=== PATIENT | male | born 1960 | race Two or more races ===

== ENCOUNTER → 2020-08-07 09:17 | Outpatient (BNVA) | payer MEDICAID, SELFPAY | PROVIDERS: PCP Nurse Practitioner Family; Visit Provider Nurse Practitioner Family | DX: I82.502 Chronic embolism and thrombosis of unspecified deep veins of left lower extremity (principal); Z51.81 Encounter for therapeutic drug level monitoring; Z79.01 Long term (current) use of anticoagulants | CPT/HCPCS: 99211 ==

== ENCOUNTER → 2020-08-14 11:11 | Outpatient (BNVA) | payer MEDICAID, SELFPAY | PROVIDERS: PCP Nurse Practitioner Family; Visit Provider Internal Medicine | DX: I82.502 Chronic embolism and thrombosis of unspecified deep veins of left lower extremity (principal); Z51.81 Encounter for therapeutic drug level monitoring; Z79.01 Long term (current) use of anticoagulants | CPT/HCPCS: 85610 ==

== ENCOUNTER → 2020-08-21 10:34 | Outpatient (BNVA) | payer MEDICAID, SELFPAY | PROVIDERS: PCP Nurse Practitioner Family; Visit Provider Internal Medicine | DX: I82.502 Chronic embolism and thrombosis of unspecified deep veins of left lower extremity (principal); Z51.81 Encounter for therapeutic drug level monitoring; Z79.01 Long term (current) use of anticoagulants | CPT/HCPCS: 85610 ==

== ENCOUNTER → 2020-08-27 13:05 | Outpatient (BNVA) | payer MEDICAID, SELFPAY | PROVIDERS: PCP Nurse Practitioner Family; Visit Provider Internal Medicine | DX: I82.502 Chronic embolism and thrombosis of unspecified deep veins of left lower extremity (principal); Z51.81 Encounter for therapeutic drug level monitoring; Z79.01 Long term (current) use of anticoagulants | CPT/HCPCS: 85610; 99211 ==

== ENCOUNTER → 2020-09-03 11:04 | Outpatient (BNVA) | payer MEDICAID, SELFPAY | PROVIDERS: PCP Nurse Practitioner Family; Visit Provider Internal Medicine | DX: I82.502 Chronic embolism and thrombosis of unspecified deep veins of left lower extremity (principal); Z51.81 Encounter for therapeutic drug level monitoring; Z79.01 Long term (current) use of anticoagulants | CPT/HCPCS: 85610; 99211 ==

== ENCOUNTER → 2020-09-10 11:12 | Outpatient (BNVA) | payer MEDICAID, SELFPAY | PROVIDERS: PCP Nurse Practitioner Family; Visit Provider Internal Medicine | DX: I82.502 Chronic embolism and thrombosis of unspecified deep veins of left lower extremity (principal); Z51.81 Encounter for therapeutic drug level monitoring; Z79.01 Long term (current) use of anticoagulants | CPT/HCPCS: 85610; 99211 ==

== ENCOUNTER → 2020-09-17 11:42 | Outpatient (BNVA) | payer MEDICAID, SELFPAY | PROVIDERS: PCP Nurse Practitioner Family; Visit Provider Internal Medicine | DX: I82.502 Chronic embolism and thrombosis of unspecified deep veins of left lower extremity (principal); Z51.81 Encounter for therapeutic drug level monitoring; Z79.01 Long term (current) use of anticoagulants | CPT/HCPCS: 85610; 99211 ==

== ENCOUNTER → 2020-09-24 11:42 | Outpatient (BNVA) | payer MEDICAID, SELFPAY | PROVIDERS: PCP Nurse Practitioner Family; Visit Provider Internal Medicine | DX: I82.502 Chronic embolism and thrombosis of unspecified deep veins of left lower extremity (principal); Z51.81 Encounter for therapeutic drug level monitoring; Z79.01 Long term (current) use of anticoagulants | CPT/HCPCS: 85610; 99211 ==

== ENCOUNTER → 2020-09-30 11:59 | Outpatient (BNVA) | payer MEDICAID, SELFPAY | PROVIDERS: PCP Nurse Practitioner Family; Visit Provider Internal Medicine | DX: I82.502 Chronic embolism and thrombosis of unspecified deep veins of left lower extremity (principal); Z51.81 Encounter for therapeutic drug level monitoring; Z79.01 Long term (current) use of anticoagulants | CPT/HCPCS: 85610; 99211 ==

== ENCOUNTER → 2020-10-07 11:11 | Outpatient (BNVA) | payer MEDICAID, SELFPAY | PROVIDERS: PCP Nurse Practitioner Family; Visit Provider Internal Medicine | DX: I82.502 Chronic embolism and thrombosis of unspecified deep veins of left lower extremity (principal); Z51.81 Encounter for therapeutic drug level monitoring; Z79.01 Long term (current) use of anticoagulants | CPT/HCPCS: 85610; 99211 ==

== ENCOUNTER → 2020-10-14 11:23 | Outpatient (BNVA) | payer MEDICAID, SELFPAY | PROVIDERS: PCP Nurse Practitioner Family; Visit Provider Internal Medicine | DX: I82.502 Chronic embolism and thrombosis of unspecified deep veins of left lower extremity (principal); Z79.01 Long term (current) use of anticoagulants; Z51.81 Encounter for therapeutic drug level monitoring | CPT/HCPCS: 85610 ==

== ENCOUNTER → 2020-10-21 13:29 | Outpatient (BNVA) | payer MEDICAID, SELFPAY | PROVIDERS: PCP Nurse Practitioner Family; Visit Provider Internal Medicine | DX: I82.502 Chronic embolism and thrombosis of unspecified deep veins of left lower extremity (principal); Z51.81 Encounter for therapeutic drug level monitoring; Z79.01 Long term (current) use of anticoagulants | CPT/HCPCS: 85610; 99211 ==

== ENCOUNTER → 2020-10-28 13:01 | Outpatient (BNVA) | payer MEDICAID, SELFPAY | PROVIDERS: PCP Nurse Practitioner Family; Visit Provider Internal Medicine | DX: I82.502 Chronic embolism and thrombosis of unspecified deep veins of left lower extremity (principal); Z51.81 Encounter for therapeutic drug level monitoring; Z79.01 Long term (current) use of anticoagulants | CPT/HCPCS: 85610; 99211 ==

== ENCOUNTER → 2020-11-04 12:53 | Outpatient (BNVA) | payer MEDICAID, SELFPAY | PROVIDERS: PCP Nurse Practitioner Family; Visit Provider Internal Medicine | DX: I82.502 Chronic embolism and thrombosis of unspecified deep veins of left lower extremity (principal); Z51.81 Encounter for therapeutic drug level monitoring; Z79.01 Long term (current) use of anticoagulants | CPT/HCPCS: 85610; 99211 ==

== ENCOUNTER → 2020-11-11 13:16 | Outpatient (BNVA) | payer MEDICAID, SELFPAY | PROVIDERS: PCP Nurse Practitioner Family; Visit Provider Internal Medicine | DX: I82.502 Chronic embolism and thrombosis of unspecified deep veins of left lower extremity (principal); Z51.81 Encounter for therapeutic drug level monitoring; Z79.01 Long term (current) use of anticoagulants | CPT/HCPCS: 85610; 99211 ==

== ENCOUNTER → 2020-11-18 12:40 | Outpatient (BNVA) | payer MEDICAID, SELFPAY | PROVIDERS: PCP Nurse Practitioner Family; Visit Provider Internal Medicine | DX: I82.502 Chronic embolism and thrombosis of unspecified deep veins of left lower extremity (principal); Z51.81 Encounter for therapeutic drug level monitoring; Z79.01 Long term (current) use of anticoagulants | CPT/HCPCS: 85610; 99211 ==

== ENCOUNTER → 2020-11-25 08:56 | Outpatient (BNVA) | payer MEDICAID, SELFPAY | PROVIDERS: PCP Nurse Practitioner Family; Visit Provider Internal Medicine | DX: I82.502 Chronic embolism and thrombosis of unspecified deep veins of left lower extremity (principal); Z51.81 Encounter for therapeutic drug level monitoring; Z79.01 Long term (current) use of anticoagulants | CPT/HCPCS: 85610; 99211 ==

== ENCOUNTER → 2020-12-02 09:43 | Outpatient (BNVA) | payer MEDICAID, SELFPAY | PROVIDERS: PCP Nurse Practitioner Family; Visit Provider Internal Medicine | DX: I82.501 Chronic embolism and thrombosis of unspecified deep veins of right lower extremity (principal); Z51.81 Encounter for therapeutic drug level monitoring; Z79.01 Long term (current) use of anticoagulants | CPT/HCPCS: 85610; 99211 ==

== ENCOUNTER → 2020-12-09 12:59 | Outpatient (BNVA) | payer MEDICAID, SELFPAY | PROVIDERS: PCP Nurse Practitioner Family; Visit Provider Internal Medicine | DX: I82.502 Chronic embolism and thrombosis of unspecified deep veins of left lower extremity (principal); Z51.81 Encounter for therapeutic drug level monitoring; Z79.01 Long term (current) use of anticoagulants | CPT/HCPCS: 85610; 99211 ==

== ENCOUNTER → 2020-12-17 13:47 | Outpatient (BNVA) | payer MEDICAID, SELFPAY | PROVIDERS: PCP Nurse Practitioner Family; Visit Provider Internal Medicine | DX: I82.502 Chronic embolism and thrombosis of unspecified deep veins of left lower extremity (principal); Z51.81 Encounter for therapeutic drug level monitoring; Z79.01 Long term (current) use of anticoagulants | CPT/HCPCS: 85610; 99211 ==

== ENCOUNTER → 2020-12-23 14:03 | Outpatient (BNVA) | payer MEDICAID, SELFPAY | PROVIDERS: PCP Nurse Practitioner Family; Visit Provider Internal Medicine | DX: I82.502 Chronic embolism and thrombosis of unspecified deep veins of left lower extremity (principal); Z51.81 Encounter for therapeutic drug level monitoring; Z79.01 Long term (current) use of anticoagulants | CPT/HCPCS: 85610; 99211 ==

== ENCOUNTER → 2020-12-25 10:44 | Outpatient (BNVA) | payer MEDICAID, SELFPAY | PROVIDERS: PCP Nurse Practitioner Family; Visit Provider Internal Medicine | DX: I82.502 Chronic embolism and thrombosis of unspecified deep veins of left lower extremity (principal); Z51.81 Encounter for therapeutic drug level monitoring; Z79.01 Long term (current) use of anticoagulants | CPT/HCPCS: 85610; 99211 ==

== ENCOUNTER → 2020-12-31 10:46 | Outpatient (BNVA) | payer MEDICAID, SELFPAY | PROVIDERS: PCP Nurse Practitioner Family; Visit Provider Internal Medicine | DX: I82.502 Chronic embolism and thrombosis of unspecified deep veins of left lower extremity (principal); Z51.81 Encounter for therapeutic drug level monitoring; Z79.01 Long term (current) use of anticoagulants | CPT/HCPCS: 85610; 99211 ==

== ENCOUNTER → 2021-01-07 11:22 | Outpatient (BNVA) | payer MEDICAID, SELFPAY | PROVIDERS: PCP Nurse Practitioner Family; Visit Provider Internal Medicine | DX: I82.502 Chronic embolism and thrombosis of unspecified deep veins of left lower extremity (principal); Z51.81 Encounter for therapeutic drug level monitoring; Z79.01 Long term (current) use of anticoagulants | CPT/HCPCS: 85610; 99211 ==

== ENCOUNTER → 2021-02-04 10:31 | Outpatient (BNVA) | payer MEDICAID, SELFPAY | PROVIDERS: PCP Nurse Practitioner Family; Visit Provider Internal Medicine | DX: I82.502 Chronic embolism and thrombosis of unspecified deep veins of left lower extremity (principal); Z51.81 Encounter for therapeutic drug level monitoring; Z79.01 Long term (current) use of anticoagulants | CPT/HCPCS: 85610; 99211 ==

== ENCOUNTER 2021-02-04 14:58 | Emergency (ER) | payer MEDICAID, SELFPAY ==
--- NOTE | ~2021-02-04 | CT_ITS ---
EXAMINATION: CT HEAD WITHOUT CONTRAST CT CERVICAL SPINE WITHOUT CONTRAST CLINICAL INFORMATION: EtOH COMPARISON: CT head 03/06/2018 TECHNIQUE: Imaging was performed from the skull base to vertex without intravenous administration of contrast. In addition, helical noncontrast CT imaging was acquired through the cervical spine and source images were reviewed along with axial reconstructions and sagittal and coronal MPRs. [This CT examination was performed using dose optimization techniques as appropriate, variously including the following: *Automated exposure control *Adjustment of mA and/or kV according to patient size (this includes techniques or standardized protocols for targeted exams where dose is matched to indication/reason for exam; i.e. extremities or head) *Use of iterative reconstruction technique] DLP: 1460 mGy-cm FINDINGS: HEAD: No intracranial mass, hemorrhage, or midline shift is visualized. There is atrophy with prominence of the ventricles and the sulci and hypodensity of the periventricular white matter due to chronic small vessel ischemic disease. There are vascular calcifications of the internal carotid arteries bilaterally. No extra-axial collections are identified. The paranasal sinuses and mastoid air cells are well aerated. CERVICAL SPINE: There is no evidence of acute cervical spine fracture. Vertebral bodies remain normal in height. Cervical vertebrae have normal alignment. There is multilevel degenerative spondylosis of the cervical spine with disc height narrowing and endplate spurs and facet joint arthrosis No pre- or paravertebral soft tissue abnormality is identified. Limited assessment of the lung apices is unremarkable. CT/CT cervical spine wo con IMPRESSION: 1. No acute intracranial pathology. 2. No CT evidence of acute cervical spine fracture or traumatic subluxation
[2021-02-04 15:07] VITALS: BP 132/74; PULSE 79; RESP 16; TEMP 36.6; O2SAT 96; BMI 31.3
--- NOTE | 2021-02-04 15:15 | PC.NURSE ---
PT S/F IN BED, RR EVEN UNLABORED, SKIN WPD, DROWSY. PER EMS PT FOUND BY BYSTANDER SITTING ON CURB APPARENTLY INTOXICATED. UPON ARRIVAL TO ED PT DROWSY BUT EASILY AROUSABLE, ANSWERING QUESTIONS APPROPRIATELY BUT NECESSITATING CONSTANT STIMULI TO STAY AWAKE. PT REPORTS DRINKING ETOH TODAY, STS A LOT A LIQUOR. PT DENIES USE OF ANY OTHER SUBSTANCE/MEDICATIONS. PT DENIES TRAUMA, NO OBVIOUS INJURIES OR DEFORMITIES NOTED. VSS, NAD. PT AWAITING PRIMARY PROVIDER EVAL.
[2021-02-04 15:17] VITALS: PULSE 74
[2021-02-04 15:19] LABS: Glucose, Whole Blood 118 mg/dL (60-115)
[2021-02-04 15:44] LABS: MANUAL DIFF FLAG NO
[2021-02-04 15:47] LABS: Basophils Percent Auto 0.4 % (0-2); Eosinophils Absolute Auto 0.1 X10*3/uL (0.0-0.4); Eosinophils Percent Auto 2.1 % (0-4); Hematocrit 44.4 % (42-52); Imm Gran Abs Auto 0.01 X10*3/uL (0.00-0.03); Imm Gran Pct Auto 0.2 % (0.0-0.4); Lymphocytes Absolute Auto 1.9 X10*3/uL (1.2-4.9); Lymphocytes Percent Auto 33.7 % (20-40); Mean Corpuscular HGB Conc 31.5 g/dl (31.0-36.0); Mean Corpuscular Hemoglobin 26.7 pg (27.0-33.0); Mean Corpuscular Volume 84.7 fL (80-98); Mean Platelet Volume 10.6 fL (9.4-12.4); Monocytes Absolute Auto 0.3 X10*3/uL (0.1-1.2); Neutrophils Absolute Auto 3.3 X10*3/uL (2.0-8.3); Neutrophils Percent Auto 57.6 % (45-73); Platelet Count 281 X10*3/uL (160-400); Red Blood Count 5.24 X10*6/uL (4.60-5.80); Red Cell Distribution Width 15.4 % (11.0-16.0); White Blood Count 5.7 X10*3/uL (4.8-10.8)
--- NOTE | 2021-02-04 15:59 | ED.ALCOHOL ---
HPI - Alcohol General Chief Complaint: ETOH/Substance Use Stated Complaint: ETOH INTOXICATION Time Seen by Provider: 02/04/21 15:59 Source: EMS Limitations: other (Alcohol intoxication) History of Present Illness HPI narrative: 60-year-old male presenting via EMS was found sitting on a curve intoxicated bystander called. Per EMS he offered no complaints admits to drinking ?a lot? denies any fall or injury. It is reported that he is on Coumadin for previous history of DVT/PE. Otherwise no reported complaint of pain or fall. MD complaint: alcohol intoxication Chronic alcohol use: Yes Associated symptoms: denies other symptoms Treatments prior to arrival: none Related Data Previous Rx's Medication Instructions Recorded warfarin 5 mg tablet 7.5 mg PO DAILY #7 tab 08/21/20 Allergies Allergy/AdvReac Type Severity Reaction Status Date / Time MRI DYE Allergy Unknown UNKNOWN Uncoded 11/04/20 15:11 Review of Systems Review of Systems: Yes Unobtainable due to mental condition (Intoxication) [facility] Past Medical History Medical History Asthma Diabetes Social History Social History Alcohol intake: current Alcohol type: hard liquor Smoking Status: Never smoker Use of substances other than those prescribed or required for medical reasons: No Advance Directives: No Advance Directives Information Provided: Yes Physical Exam Vital Signs: Vital Signs: Last Vital Signs Temp 96.3 F L 02/04/21 19:39 Pulse 82 02/04/21 19:39 Resp 16 02/04/21 19:39 BP 128/65 02/04/21 19:39 Pulse Ox 98 02/04/21 19:39 Body Mass Index 31.3 Reviewed Const: General: cooperative, acute distress and intoxicated appearing Nutritional Appearance: average body habitus Orientation/consciousness: patient oriented x3 HENMT: Head: Yes normal to inspection Ears: hearing grossly normal bilaterally Eyes: General: appearance normal, both eyes and all related structures Visual Kelsey: normal visual kelsey by confrontation Neck: Neck: Yes normal visual inspection, No positive Brudzinski's sign, No positive Kernig's sign and No tender Thyroid: Thyroid normal Chest: Chest palpation & inspection: normal inspection of the chest Resp: Effort & Inspection: normal respiratory effort Auscultation: clear to auscultation bilaterally Cardio: Jugular venous distension: no JVD Rhythm: regular rhythm Heart sounds: S1 normal heart sound present and S2 normal heart sound present GI: Inspection: Yes normal to inspection Percussion: Yes normal to percussion Auscultation: normal bowel sounds : General: Yes no CVA tenderness Back/Spine/Pelvis: Back: no CVA tenderness Skin: General skin exam: no rashes or lesions noted Neuro: General: patient oriented x3 Extrem: General: Yes normal to inspection Course Reevaluation(s) Reevaluation #1: Hypernatremic at 01:48 otherwise alcohol is three hundred ninety-three has been in observing the ED for almost 6 hours he is up and walking around eating drinking clinically sober at this time. Offers no other complaints. He declined to go to detox services at this time he will follow-up a size he is calling his son to come pick him up. MDM - Alcohol Lab Data Result diagrams: 02/04/21 15:32 02/04/21 15:32 Labs: Lab Results 02/04/21 02/04/21 02/04/21 Range/Units 15:14 15:32 15:32 WBC 5.7 (4.8-10.8) X10*3/uL RBC 5.24 (4.60-5.80) X10*6/uL Hgb 14.0 (14.0-18.0) g/dl Hct 44.4 (42-52) % MCV 84.7 (80-98) fL MCH 26.7 L (27.0-33.0) pg MCHC 31.5 (31.0-36.0) g/dl RDW 15.4 (11.0-16.0) % Plt Count 281 (160-400) X10*3/uL MPV 10.6 (9.4-12.4) fL Immature Gran % (Auto) 0.2 (0.0-0.4) % Neut % (Auto) 57.6 (45-73) % Lymph % (Auto) 33.7 (20-40) % [place] % (Auto) 6.0 (2-11) % Eos % (Auto) 2.1 (0-4) % Baso % (Auto) 0.4 (0-2) % Lymph # (Auto) 1.9 (1.2-4.9) X10*3/uL [place] # (Auto) 0.3 (0.1-1.2) X10*3/uL Eos # (Auto) 0.1 (0.0-0.4) X10*3/uL Baso # (Auto) 0.0 (0.0-0.2) X10*3/uL Abs Immat Gran (auto) 0.01 (0.00-0.03) X10*3/uL Absolute Neuts (auto) 3.3 (2.0-8.3) X10*3/uL Absolute Nucleated RBC 0.000 (0.0-0.012) X10*3/uL Nucleated RBC % (auto) 0.0 (0.0-0.2) /100WBC PT (10.8-13.0) SEC INR (0.9-1.1) APTT (24.1-38.0) SEC Hold Blue Top Sodium 148 H (135-145) mmol/L Potassium 3.8 (3.3-5.1) mmol/L Chloride 111 H (96-108) mmol/L Carbon Dioxide 27 (22-29) mmol/L Anion Gap 14 (12-20) BUN 18 H (9-16) mg/dL Creatinine 0.77 (0.5-1.4) mg/dL Estim Creat Clear Calc 109.5 Estimated GFR > 60 POC Glucose 118 H (60-115) mg/dL Random Glucose 121 H (60-115) mg/dL Calcium 10.1 (8.4-10.2) mg/dL Ethyl Alcohol mg/dL 02/04/21 02/04/21 Range/Units 15:32 15:32 WBC (4.8-10.8) X10*3/uL RBC (4.60-5.80) X10*6/uL Hgb (14.0-18.0) g/dl Hct (42-52) % MCV (80-98) fL MCH (27.0-33.0) pg MCHC (31.0-36.0) g/dl RDW (11.0-16.0) % Plt Count (160-400) X10*3/uL MPV (9.4-12.4) fL Immature Gran % (Auto) (0.0-0.4) % Neut % (Auto) (45-73) % Lymph % (Auto) (20-40) % [place] % (Auto) (2-11) % Eos % (Auto) (0-4) % Baso % (Auto) (0-2) % Lymph # (Auto) (1.2-4.9) X10*3/uL [place] # (Auto) (0.1-1.2) X10*3/uL Eos # (Auto) (0.0-0.4) X10*3/uL Baso # (Auto) (0.0-0.2) X10*3/uL Abs Immat Gran (auto) (0.00-0.03) X10*3/uL Absolute Neuts (auto) (2.0-8.3) X10*3/uL Absolute Nucleated RBC (0.0-0.012) X10*3/uL Nucleated RBC % (auto) (0.0-0.2) /100WBC PT 23.4 H (10.8-13.0) SEC INR 2.0 H (0.9-1.1) APTT 42.6 H (24.1-38.0) SEC Hold Blue Top SEE NOTE Sodium (135-145) mmol/L Potassium (3.3-5.1) mmol/L Chloride (96-108) mmol/L Carbon Dioxide (22-29) mmol/L Anion Gap (12-20) BUN (9-16) mg/dL Creatinine (0.5-1.4) mg/dL Estim Creat Clear Calc Estimated GFR POC Glucose (60-115) mg/dL Random Glucose (60-115) mg/dL Calcium (8.4-10.2) mg/dL Ethyl Alcohol 393 H* mg/dL Discharge Plan Discharge Clinical Impression: Alcoholic intoxication Patient Disposition: Home, Self-Care Instructions: Alcohol Intoxication (ED) Additional Instructions: Please stop drinking alcohol Please seek detox Please follow-up with your primary care doctor Return if any concerns or worsening symptoms As I have discussed with you your risk for bleeding is very high given that you take Coumadin which is a blood thinner and if your intoxicating you fall you can have increase risk for bleeding in her brain and your chest/abdominal cavity Return if any concerns or worsening symptoms Thank you Prescriptions: No Action warfarin 5 mg tablet 7.5 mg PO DAILY Qty: 7 RF: 0 Referrals: Physician,Unknown [Primary Care Provider] - 2 days
[2021-02-04 16:21] LABS: Ethanol 393 mg/dL
[2021-02-04 16:22] LABS: Anion Gap 14 (12-20); Calcium 10.1 mg/dL (8.4-10.2); Carbon Dioxide 27 mmol/L (22-29); Chloride 111 mmol/L (96-108); Potassium 3.8 mmol/L (3.3-5.1); Sodium 148 mmol/L (135-145)
[2021-02-04 16:32] LABS: Blood Urea Nitrogen 18 mg/dL (9-16); Creatinine Clr Calc Pharmacy 109.5; Estimated Glomerular Filt Rate > 60; Glucose Random 121 mg/dL (60-115); Prothrombin Time 23.4 SEC (10.8-13.0)
[2021-02-04 16:33] VITALS: BP 143/72; PULSE 64; RESP 16; TEMP 36.9; O2SAT 99
[2021-02-04 16:37] LABS: Partial Thromboplastin Time 42.6 SEC (24.1-38.0)
[2021-02-04 19:39] VITALS: BP 128/65; PULSE 82; RESP 16; TEMP 35.7; O2SAT 98
--- NOTE | 2021-02-04 21:19 | MHC.RECOVSUP ---
? Reason for consult Support o Current location: ED18H o Identified substance use concern: alcohol - Support ? Intervention: o Community resources provided o Harm reduction discussion ? Plan: o Patient to follow up with [facility] after discharge ? Additional information: Patient is in a sober house and had 6 months in recovery and had a relapse from alcohol.. Patient left the ED to try to get back to the sober house before his curfew. patient was given resources to [facility] so that if needed he can go in the morning to get help and support he may need.
== END 2021-02-04 21:24 | disposition home or self-care (01) ==
PROVIDERS: Nurse Practitioner Primary Care; Emergency Provider Emergency Medicine
DX: F10.120 Alcohol abuse with intoxication, uncomplicated (principal); Y90.8 Blood alcohol level of 240 mg/100 ml or more; E11.9 Type 2 diabetes mellitus without complications; Z86.718 Personal history of other venous thrombosis and embolism; Z79.01 Long term (current) use of anticoagulants
CPT/HCPCS: 36415; 70450; 72125; 80048; 80320; 82947; 85025; 85610; 85730; 99285

== ENCOUNTER → 2021-02-18 10:22 | Outpatient (BNVA) | payer MEDICAID, SELFPAY | PROVIDERS: PCP Internal Medicine; Visit Provider Internal Medicine | DX: I82.502 Chronic embolism and thrombosis of unspecified deep veins of left lower extremity (principal); Z79.01 Long term (current) use of anticoagulants; Z51.81 Encounter for therapeutic drug level monitoring | CPT/HCPCS: 85610; 99211 ==

== ENCOUNTER → 2021-03-04 09:42 | Outpatient (BNVA) | payer MEDICAID, SELFPAY | PROVIDERS: PCP Internal Medicine; Visit Provider Internal Medicine | DX: I82.502 Chronic embolism and thrombosis of unspecified deep veins of left lower extremity (principal); Z51.81 Encounter for therapeutic drug level monitoring; Z79.01 Long term (current) use of anticoagulants | CPT/HCPCS: 85610; 99211 ==

== ENCOUNTER → 2021-03-08 13:42 | Outpatient (BNVA) | payer MEDICAID, SELFPAY | PROVIDERS: PCP Internal Medicine; Visit Provider Internal Medicine | DX: I82.402 Acute embolism and thrombosis of unspecified deep veins of left lower extremity (principal); Z51.81 Encounter for therapeutic drug level monitoring; Z79.01 Long term (current) use of anticoagulants | CPT/HCPCS: 85610; 99211 ==

== ENCOUNTER → 2021-03-12 08:43 | Outpatient (BNVA) | payer MEDICAID, SELFPAY | PROVIDERS: PCP Internal Medicine; Visit Provider Internal Medicine | DX: I82.402 Acute embolism and thrombosis of unspecified deep veins of left lower extremity (principal); Z79.01 Long term (current) use of anticoagulants; Z51.81 Encounter for therapeutic drug level monitoring | CPT/HCPCS: 85610; 99211 ==

== ENCOUNTER 2021-03-17 19:07 | Emergency (ER) | payer MEDICAID, SELFPAY ==
--- NOTE | ~2021-03-17 | CT_ITS ---
EXAMINATION: CT HEAD WITHOUT CONTRAST CT CERVICAL SPINE WITHOUT CONTRAST CLINICAL INFORMATION: Fall. COMPARISON: CT head and CT cervical spine 02/04/2021 TECHNIQUE: Imaging was performed from the skull base to vertex without intravenous administration of contrast. In addition, helical noncontrast CT imaging was acquired through the cervical spine and source images were reviewed along with axial reconstructions and sagittal and coronal MPRs. [This CT examination was performed using dose optimization techniques as appropriate, variously including the following: *Automated exposure control *Adjustment of mA and/or kV according to patient size (this includes techniques or standardized protocols for targeted exams where dose is matched to indication/reason for exam; i.e. extremities or head) *Use of iterative reconstruction technique] DLP: 1252 mGy-cm FINDINGS: HEAD: No intracranial mass, hemorrhage, or midline shift is visualized. There is atrophy with prominence of the ventricles and the sulci and hypodensity of the periventricular white matter due to chronic small vessel ischemic disease. There are vascular calcifications of the internal carotid arteries bilaterally. No extra-axial collections are identified. The paranasal sinuses and mastoid air cells are well aerated. CERVICAL SPINE: There is no evidence of acute cervical spine fracture. Vertebral bodies remain normal in height. Cervical vertebrae have normal alignment. There is multilevel degenerative spondylosis of the cervical spine with disc height narrowing and endplate spurs and facet joint arthrosis No pre- or paravertebral soft tissue abnormality is identified. Limited assessment of the lung apices is unremarkable. CT/CT cervical spine wo con IMPRESSION: 1. No acute intracranial pathology. 2. No CT evidence of acute cervical spine fracture or traumatic subluxation
[2021-03-17 19:16] VITALS: BP 147/62; BP 190/100; PULSE 88; PULSE 96; RESP 16; TEMP 36.7; O2SAT 95; O2SAT 99; BMI 32.8
--- NOTE | 2021-03-17 19:44 | ED.GENADULT ---
HPI - General Adult General Chief complaint: Fall Stated complaint: ETOH Time Seen by Provider: 03/17/21 19:36 Source: patient, EMS, RN notes reviewed and old records reviewed Mode of arrival: EMS Limitations: no limitations History of Present Illness HPI narrative: 60 year-old male here today brought by EMS services. Patient was found on the side of the road by a bystander. [employer] was called for a full. Patient was drinking about 1 pt of vodka today. Does not recall falling, patient is on Coumadin for history of blood clots. Patient is very difficult to arouse to get any information from him. Related Data Home Medications Medication Instructions Recorded Confirmed hydroxyzine HCl PO 02/18/21 03/12/21 omega 3 fish oil PO 03/12/21 03/12/21 Previous Rx's Medication Instructions Recorded warfarin 5 mg tablet 7.5 mg PO DAILY #7 tab 08/21/20 Allergies Allergy/AdvReac Type Severity Reaction Status Date / Time MRI DYE Allergy Unknown UNKNOWN Uncoded 11/04/20 15:11 Review of Systems Review of Systems: Constitutional : No Weight loss, No Fever, No Chills, No Night Sweats, No Fatigue, No Malaise ENT/Mouth : No Hearing loss, No Ear Pain, No Nasal Congestion, No Sinus Pain, No Hoarseness, No sore throat, No Rhinorrhea, No Swallowing Difficulty Eyes: No Eye Pain, No Swelling, No Redness, No Foreign Body, No Discharge, No Vision Changes Cardiovascular : No Chest Pain, No SOB, No Dyspnea on Exertion, No Orthopnea, No Edema, No Palpitations Respiratory : No Cough, No Sputum, No Wheezing, No Smoke Exposure, No Dyspnea Gastrointestinal : No Nausea, No Vomiting, No Diarrhea, No Constipation, No abdominal Pain, No Hematochezia, No Melena Genitourinary : no irregular bleeding, No Dysuria, No Urinary Frequency, No Hematuria, No Urinary Incontinence, No Urgency, No Flank Pain, No Urinary Flow Changes, No Hesitancy Musculoskeletal : No joint pain, No Myalgias, No Joint Swelling Skin : No Skin Lesions, No rash Neuro : No Weakness, No Numbness, No Paresthesias, No Loss of Consciousness, No Dizziness, No Headache Psych : No Anxiety/Panic, No Depression, No SI/HI/AH/VH, No Social Issues, Heme/Lymph: No Bruising, No Bleeding,No Lymphadenopathy Endocrine : No Polyuria, No Polydipsia, No Temperature Intolerance Yes all other systems are reviewed and are negative PMFSH Past Medical History Medical History (Updated 03/17/21 @ 19:19 by Myrna Gee) Asthma Diabetes ETOH abuse HTN (hypertension) Thrombosis Social History Social History Alcohol intake: current Alcohol type: hard liquor Smoking Status: Never smoker Advance Directives: No Advance Directives Information Provided: No Physical Exam Vital Signs: Vital Signs: Last Vital Signs Temp 98.1 F 03/17/21 19:16 Pulse 94 03/17/21 20:15 Resp 15 03/17/21 20:15 BP 148/94 H 03/17/21 20:15 Pulse Ox 96 03/17/21 20:15 Body Mass Index 32.8 Const: General: healthy appearing, no acute distress and well developed Nutritional Appearance: well nourished Orientation/consciousness: patient oriented x3 Neck: Neck: Yes normal visual inspection, Yes full ROM and Yes trachea midline Thyroid: Thyroid normal Resp: Auscultation: clear to auscultation bilaterally Cardio: Rate: regular rate Rhythm: regular rhythm GI: Inspection: Yes normal to inspection and No distended Palpation (GI): No hepatosplenomegaly present Auscultation: normal bowel sounds Skin: General skin exam: elasticity normal, turgor normal and dry skin Neuro: General: patient oriented x3 Course Course Course Narrative: Patient was brought by EMS services after police was called by a bystander who witnessed patient fall. Patient denies any fall. No injuries noted to had. Patient denies any spinal tenderness however patient is very intoxicated and difficult to arouse. I will order CT of head and cervical spine. Will get basic lab work CBC and CMP. Reevaluation(s) Reevaluation #1: Labs drawn. Awaiting to get CT of the neck and head. Patient little bit more arousable right now. He reports that he lives in [place] and has been here in the last 5 months. He is in sober living in [facility]. Patient reports that he does not have any family around here. Spoke to recovery code Ruben who will go and talk to him about safe return home if all his lab work and CT scans are negative. Patient is agreeable to plan of care and verbalizes understanding. Reevaluation #2: Awaiting CT scan results. Lab work negative for any abnormalities. Patient denies any CP, PND. Report given to Dr. Coppola who will take over his care Medical Decision Making Lab Data Result diagrams: 03/17/21 20:31 03/17/21 20:31 Labs: Lab Results 03/17/21 03/17/21 03/17/21 Range/Units 20:24 20:31 20:31 WBC 7.0 (4.8-10.8) X10*3/uL RBC 5.26 (4.60-5.80) X10*6/uL Hgb 13.7 L (14.0-18.0) g/dl Hct 42.8 (42-52) % MCV 81.4 (80-98) fL MCH 26.0 L (27.0-33.0) pg MCHC 32.0 (31.0-36.0) g/dl RDW 14.7 (11.0-16.0) % Plt Count 247 (160-400) X10*3/uL MPV 9.5 (9.4-12.4) fL Immature Gran % (Auto) 0.3 (0.0-0.4) % Neut % (Auto) 72.8 (45-73) % Lymph % (Auto) 20.3 (20-40) % [place] % (Auto) 5.7 (2-11) % Eos % (Auto) 0.6 (0-4) % Baso % (Auto) 0.3 (0-2) % Lymph # (Auto) 1.4 (1.2-4.9) X10*3/uL [place] # (Auto) 0.4 (0.1-1.2) X10*3/uL Eos # (Auto) 0.0 (0.0-0.4) X10*3/uL Baso # (Auto) 0.0 (0.0-0.2) X10*3/uL Abs Immat Gran (auto) 0.02 (0.00-0.03) X10*3/uL Absolute Neuts (auto) 5.1 (2.0-8.3) X10*3/uL Absolute Nucleated RBC 0.000 (0.0-0.012) X10*3/uL Nucleated RBC % (auto) 0.0 (0.0-0.2) /100WBC Sodium 143 (135-145) mmol/L Potassium 3.8 (3.3-5.1) mmol/L Chloride 104 (96-108) mmol/L Carbon Dioxide 24 (22-29) mmol/L Anion Gap 19 (12-20) BUN 15 (9-16) mg/dL Creatinine 0.91 (0.5-1.4) mg/dL Estim Creat Clear Calc 93.7 Estimated GFR > 60 POC Glucose 125 H (60-115) mg/dL Random Glucose 135 H (60-115) mg/dL Calcium 9.4 D (8.4-10.2) mg/dL Total Bilirubin 0.4 (0.0-1.0) mg/dL AST 34 (5-37) U/L ALT 32 (0-40) U/L Alkaline Phosphatase 56 (39-117) U/L Total Protein 7.2 (6.5-8.0) g/dL Albumin 4.5 (3.5-5.0) g/dL Discharge Plan Discharge Prescriptions: No Action warfarin 5 mg tablet 7.5 mg PO DAILY Qty: 7 RF: 0 omega 3 fish oil 500 mg PO RF: 0 hydroxyzine HCl PO RF: 0
[2021-03-17 20:15] VITALS: BP 148/94; PULSE 94; RESP 15; O2SAT 96
[2021-03-17] MEDS: 0.9 % Sodium Chloride 1,000 ML 999 ML IV (20:32)
[2021-03-17 20:39] LABS: Glucose, Whole Blood 125 mg/dL (60-115)
[2021-03-17 20:39] LABS: MANUAL DIFF FLAG NO
[2021-03-17 20:45] LABS: Basophils Percent Auto 0.3 % (0-2); Eosinophils Percent Auto 0.6 % (0-4); Hematocrit 42.8 % (42-52); Hemoglobin 13.7 g/dl (14.0-18.0); Imm Gran Abs Auto 0.02 X10*3/uL (0.00-0.03); Imm Gran Pct Auto 0.3 % (0.0-0.4); Lymphocytes Absolute Auto 1.4 X10*3/uL (1.2-4.9); Lymphocytes Percent Auto 20.3 % (20-40); Mean Corpuscular Volume 81.4 fL (80-98); Mean Platelet Volume 9.5 fL (9.4-12.4); Monocytes Absolute Auto 0.4 X10*3/uL (0.1-1.2); Monocytes Percent Auto 5.7 % (2-11); Neutrophils Absolute Auto 5.1 X10*3/uL (2.0-8.3); Neutrophils Percent Auto 72.8 % (45-73); Platelet Count 247 X10*3/uL (160-400); Red Blood Count 5.26 X10*6/uL (4.60-5.80); Red Cell Distribution Width 14.7 % (11.0-16.0)
--- NOTE | 2021-03-17 21:05 | MHC.RECOVSUP ---
? Reason for consult Support o Current location: ED10 o Identified substance use concern: Alcohol - Support ? Intervention: o Community resources provided o Harm reduction discussion ? Plan: o Patient to follow up with [facility] after discharge ? Additional information: Patient relapsed and is currently in a sober house ([facility] in [place]). Patient wants to go to a detox.. But Theres no beds available. Patient will be going to [facility] [place] in the morning so that a recovery auditor will be able to assist him..
[2021-03-17 21:07] LABS: Alanine Aminotransferase 32 U/L (0-40); Albumin Level 4.5 g/dL (3.5-5.0); Alkaline Phosphatase 56 U/L (39-117); Anion Gap 19 (12-20); Aspartate Amino Transferase 34 U/L (5-37); Bilirubin Total 0.4 mg/dL (0.0-1.0); Blood Urea Nitrogen 15 mg/dL (9-16); Calcium 9.4 mg/dL (8.4-10.2); Carbon Dioxide 24 mmol/L (22-29); Chloride 104 mmol/L (96-108); Creatinine Clr Calc Pharmacy 93.7; Estimated Glomerular Filt Rate > 60; Glucose Random 135 mg/dL (60-115); Potassium 3.8 mmol/L (3.3-5.1); Sodium 143 mmol/L (135-145); Total Protein 7.2 g/dL (6.5-8.0)
[2021-03-17 22:32] VITALS: BP 133/85; PULSE 97; RESP 22; TEMP 36.8; O2SAT 96
--- NOTE | 2021-03-18 00:57 | PC.NURSE ---
Pt ambulatory with steady gait
[2021-03-18 01:16] LABS: Magnesium 2.2 mg/dL (1.6-2.6)
[2021-03-18 01:23] VITALS: BP 148/86; PULSE 91; RESP 16; O2SAT 96
--- NOTE | 2021-03-18 08:58 | PC.NURSE ---
PT DIDNT WANT TO WAIT TO SEE INSURANCE INSTRUCTOR, LEFT WITHOUT PAPER WORK.
== END 2021-03-18 08:57 | disposition home or self-care (01) ==
PROVIDERS: Internal Medicine; Nurse Practitioner Family; Emergency Provider Emergency Medicine
DX: F10.120 Alcohol abuse with intoxication, uncomplicated (principal); Y90.9 Presence of alcohol in blood, level not specified; Z91.81 History of falling; E11.9 Type 2 diabetes mellitus without complications; I10 Essential (primary) hypertension; Z86.718 Personal history of other venous thrombosis and embolism; Z79.01 Long term (current) use of anticoagulants
CPT/HCPCS: 36415; 70450; 72125; 80053; 82947; 83735; 85025; 96360; 99284

== ENCOUNTER → 2021-03-31 14:06 | Outpatient (BNVA) | payer MEDICAID, SELFPAY | PROVIDERS: PCP Internal Medicine; Visit Provider Internal Medicine | DX: I82.402 Acute embolism and thrombosis of unspecified deep veins of left lower extremity (principal); Z51.81 Encounter for therapeutic drug level monitoring; Z79.01 Long term (current) use of anticoagulants | CPT/HCPCS: 85610; 99211 ==

== ENCOUNTER → 2021-04-21 13:04 | Outpatient (BNVA) | payer MEDICAID, SELFPAY | PROVIDERS: PCP Internal Medicine; Visit Provider Internal Medicine | DX: I82.402 Acute embolism and thrombosis of unspecified deep veins of left lower extremity (principal); Z51.81 Encounter for therapeutic drug level monitoring; Z79.01 Long term (current) use of anticoagulants | CPT/HCPCS: 85610; 99211 ==

== ENCOUNTER → 2021-04-22 13:04 | Outpatient (BNVA) | payer MEDICAID, SELFPAY | PROVIDERS: PCP Internal Medicine; Visit Provider Internal Medicine | DX: I82.402 Acute embolism and thrombosis of unspecified deep veins of left lower extremity (principal); Z51.81 Encounter for therapeutic drug level monitoring; Z79.01 Long term (current) use of anticoagulants | CPT/HCPCS: 85610; 99211 ==

== ENCOUNTER → 2021-04-27 13:48 | Outpatient (BNVA) | payer MEDICAID, SELFPAY | PROVIDERS: PCP Internal Medicine; Visit Provider Internal Medicine | DX: I82.402 Acute embolism and thrombosis of unspecified deep veins of left lower extremity (principal); Z51.81 Encounter for therapeutic drug level monitoring; Z79.01 Long term (current) use of anticoagulants | CPT/HCPCS: 85610; 99211 ==

== ENCOUNTER → 2021-05-04 14:31 | Outpatient (BNVA) | payer MEDICAID, SELFPAY | PROVIDERS: PCP Internal Medicine; Visit Provider Internal Medicine | DX: I82.402 Acute embolism and thrombosis of unspecified deep veins of left lower extremity (principal); Z51.81 Encounter for therapeutic drug level monitoring; Z79.01 Long term (current) use of anticoagulants | CPT/HCPCS: 85610; 99211 ==

== ENCOUNTER → 2021-05-11 09:20 | Outpatient (BNVA) | payer MEDICAID, SELFPAY | PROVIDERS: PCP Internal Medicine; Visit Provider Internal Medicine | DX: I82.402 Acute embolism and thrombosis of unspecified deep veins of left lower extremity (principal); Z51.81 Encounter for therapeutic drug level monitoring; Z79.01 Long term (current) use of anticoagulants | CPT/HCPCS: 85610; 99211 ==

== ENCOUNTER → 2021-05-18 09:16 | Outpatient (BNVA) | payer MEDICAID, SELFPAY | PROVIDERS: PCP Internal Medicine; Visit Provider Internal Medicine | DX: I82.402 Acute embolism and thrombosis of unspecified deep veins of left lower extremity (principal); Z51.81 Encounter for therapeutic drug level monitoring; Z79.01 Long term (current) use of anticoagulants | CPT/HCPCS: 85610; 99211 ==

== ENCOUNTER → 2021-05-21 09:25 | Outpatient (BNVA) | payer MEDICAID, SELFPAY | PROVIDERS: PCP Internal Medicine; Visit Provider Internal Medicine | DX: I82.402 Acute embolism and thrombosis of unspecified deep veins of left lower extremity (principal); Z51.81 Encounter for therapeutic drug level monitoring; Z79.01 Long term (current) use of anticoagulants | CPT/HCPCS: 85610; 99211 ==

== ENCOUNTER → 2021-05-28 10:25 | Outpatient (BNVA) | payer MEDICAID, SELFPAY | PROVIDERS: PCP Internal Medicine; Visit Provider Internal Medicine | DX: I82.402 Acute embolism and thrombosis of unspecified deep veins of left lower extremity (principal); Z51.81 Encounter for therapeutic drug level monitoring; Z79.01 Long term (current) use of anticoagulants | CPT/HCPCS: 85610; 99211 ==

== ENCOUNTER → 2021-06-04 10:06 | Outpatient (BNVA) | payer MEDICAID, SELFPAY | PROVIDERS: PCP Internal Medicine; Visit Provider Internal Medicine | DX: I82.402 Acute embolism and thrombosis of unspecified deep veins of left lower extremity (principal); Z51.81 Encounter for therapeutic drug level monitoring; Z79.01 Long term (current) use of anticoagulants | CPT/HCPCS: 85610; 99211 ==

== ENCOUNTER → 2021-06-11 09:42 | Outpatient (BNVA) | payer MEDICAID, SELFPAY | PROVIDERS: PCP Internal Medicine; Visit Provider Internal Medicine | DX: I82.402 Acute embolism and thrombosis of unspecified deep veins of left lower extremity (principal); Z51.81 Encounter for therapeutic drug level monitoring; Z79.01 Long term (current) use of anticoagulants | CPT/HCPCS: 85610; 99211 ==

== ENCOUNTER → 2021-06-18 09:43 | Outpatient (BNVA) | payer MEDICAID, SELFPAY | PROVIDERS: PCP Internal Medicine; Visit Provider Internal Medicine | DX: I82.402 Acute embolism and thrombosis of unspecified deep veins of left lower extremity (principal); Z51.81 Encounter for therapeutic drug level monitoring; Z79.01 Long term (current) use of anticoagulants | CPT/HCPCS: 85610; 99211 ==

== ENCOUNTER → 2021-06-25 09:48 | Outpatient (BNVA) | payer MEDICAID, SELFPAY | PROVIDERS: PCP Internal Medicine; Visit Provider Internal Medicine | DX: I82.402 Acute embolism and thrombosis of unspecified deep veins of left lower extremity (principal); Z51.81 Encounter for therapeutic drug level monitoring; Z79.01 Long term (current) use of anticoagulants | CPT/HCPCS: 85610; 99211 ==

== ENCOUNTER → 2021-07-06 08:21 | Outpatient (BNVA) | payer MEDICAID, SELFPAY | PROVIDERS: PCP Internal Medicine; Visit Provider Internal Medicine | DX: I82.402 Acute embolism and thrombosis of unspecified deep veins of left lower extremity (principal); Z51.81 Encounter for therapeutic drug level monitoring; Z79.01 Long term (current) use of anticoagulants | CPT/HCPCS: 85610; 99211 ==

== ENCOUNTER 2021-07-20 08:01 | Outpatient (REF) | payer MEDICAID, SELFPAY ==
--- NOTE | ~2021-07-20 | XR_ITS ---
EXAMINATION: XR FOOT, LEFT CLINICAL INFORMATION: Pain in left foot with indwelling nail. COMPARISON: None. TECHNIQUE: AP, lateral, and oblique views of the left foot. FINDINGS: There is no visible fracture or dislocation. There is mild loss of 1st MTP joint space with periarticular spurring. No bony erosive changes seen in any of the joints. No soft tissue swelling or bony erosive changes. The ankle mortise and subtalar joints are normal. There are small retrocalcaneal enthesophyte. XR/XR foot LT min 3V IMPRESSION: Mild degenerative changes 1st MTP joint. No acute fracture or dislocation. Small retrocalcaneal enthesophyte.
== END 2021-07-20 08:02 | disposition home or self-care (01) ==
LOC: HO.XRAY 08:01
PROVIDERS: Absent Provider Internal Medicine; PCP Internal Medicine; Visit Provider Internal Medicine
DX: M79.672 Pain in left foot (principal); L60.0 Ingrowing nail; I82.402 Acute embolism and thrombosis of unspecified deep veins of left lower extremity; Z51.81 Encounter for therapeutic drug level monitoring; Z79.01 Long term (current) use of anticoagulants
CPT/HCPCS: 73630; 85610; 99211

== ENCOUNTER 2021-08-03 07:45 | Outpatient (REF) | payer MEDICAID, SELFPAY ==
--- NOTE | 2021-08-03 | PFT_ITS ---
FLOWS: FEV1 86% of predicted at 2.79 L. FVC 85% of predicted at 3.58 L. FEV1 to FVC ratio of 0.78. No bronchodilator response. LUNG VOLUMES: Total lung capacity 93% of predicted at 5.96 L. Residual volume 106% of predicted at 2.24 L. Slow vital capacity 86% of predicted at 3.72 L. Expiratory reserve volume 20% of predicted at 0.25 L. Diffusion capacity is normal. IMPRESSION: No obstructive or restrictive ventilatory defect. No bronchodilator response. Decreased expiratory reserve volume suggests extrathoracic restriction likely secondary to abdominal obesity. Geoff Arellano MD AP/MODL / [id number]
== END 2021-08-03 07:46 | disposition home or self-care (01) ==
LOC: HO.RESP 07:45
PROVIDERS: PCP Internal Medicine; Visit Provider Internal Medicine
DX: J45.20 Mild intermittent asthma, uncomplicated (principal); I82.402 Acute embolism and thrombosis of unspecified deep veins of left lower extremity; Z51.81 Encounter for therapeutic drug level monitoring; Z79.01 Long term (current) use of anticoagulants
CPT/HCPCS: 85610; 94060; 94727; 94729; 99211

== ENCOUNTER → 2021-08-17 08:51 | Outpatient (BNVA) | payer MEDICAID, SELFPAY | PROVIDERS: PCP Internal Medicine; Visit Provider Internal Medicine | DX: I82.402 Acute embolism and thrombosis of unspecified deep veins of left lower extremity (principal); Z51.81 Encounter for therapeutic drug level monitoring; Z79.01 Long term (current) use of anticoagulants | CPT/HCPCS: 85610; 99211 ==

== ENCOUNTER → 2021-08-31 09:23 | Outpatient (BNVA) | payer MEDICAID, SELFPAY | PROVIDERS: PCP Internal Medicine; Visit Provider Internal Medicine | DX: I82.402 Acute embolism and thrombosis of unspecified deep veins of left lower extremity (principal); Z51.81 Encounter for therapeutic drug level monitoring; Z79.01 Long term (current) use of anticoagulants | CPT/HCPCS: 85610; 99211 ==

== ENCOUNTER → 2021-09-14 08:52 | Outpatient (BNVA) | payer MEDICAID, SELFPAY | PROVIDERS: PCP Internal Medicine; Visit Provider Internal Medicine | DX: I82.402 Acute embolism and thrombosis of unspecified deep veins of left lower extremity (principal); Z51.81 Encounter for therapeutic drug level monitoring; Z79.01 Long term (current) use of anticoagulants | CPT/HCPCS: 85610; 99211 ==

== ENCOUNTER → 2021-09-28 08:50 | Outpatient (BNVA) | payer MEDICAID, SELFPAY | PROVIDERS: PCP Internal Medicine; Visit Provider Internal Medicine | DX: I82.402 Acute embolism and thrombosis of unspecified deep veins of left lower extremity (principal); Z51.81 Encounter for therapeutic drug level monitoring; Z79.01 Long term (current) use of anticoagulants | CPT/HCPCS: 85610; 99211 ==

== ENCOUNTER → 2021-10-15 12:00 | Outpatient (BNVA) | payer MEDICAID, SELFPAY | PROVIDERS: PCP Internal Medicine; Visit Provider Internal Medicine | DX: I82.402 Acute embolism and thrombosis of unspecified deep veins of left lower extremity (principal); Z51.81 Encounter for therapeutic drug level monitoring; Z79.01 Long term (current) use of anticoagulants | CPT/HCPCS: 85610; 99211 ==

== ENCOUNTER → 2021-11-12 08:44 | Outpatient (BNVA) | payer MEDICAID, SELFPAY | PROVIDERS: PCP Internal Medicine; Visit Provider Internal Medicine | DX: I82.402 Acute embolism and thrombosis of unspecified deep veins of left lower extremity (principal); Z51.81 Encounter for therapeutic drug level monitoring; Z79.01 Long term (current) use of anticoagulants | CPT/HCPCS: 85610; 99211 ==

== ENCOUNTER → 2021-12-03 08:45 | Outpatient (BNVA) | payer MEDICAID, SELFPAY | PROVIDERS: PCP Internal Medicine; Visit Provider Internal Medicine | DX: I82.402 Acute embolism and thrombosis of unspecified deep veins of left lower extremity (principal); Z51.81 Encounter for therapeutic drug level monitoring; Z79.01 Long term (current) use of anticoagulants | CPT/HCPCS: 85610; 99211 ==

== ENCOUNTER → 2021-12-06 16:08 | Outpatient (BNVA) | payer MEDICAID, SELFPAY | PROVIDERS: PCP Internal Medicine; Visit Provider Internal Medicine | DX: I82.402 Acute embolism and thrombosis of unspecified deep veins of left lower extremity (principal); Z51.81 Encounter for therapeutic drug level monitoring; Z79.01 Long term (current) use of anticoagulants | CPT/HCPCS: 85610; 99211 ==

== ENCOUNTER → 2021-12-10 09:02 | Outpatient (BNVA) | payer MEDICAID, SELFPAY | PROVIDERS: PCP Internal Medicine; Visit Provider Internal Medicine | DX: I82.402 Acute embolism and thrombosis of unspecified deep veins of left lower extremity (principal); Z51.81 Encounter for therapeutic drug level monitoring; Z79.01 Long term (current) use of anticoagulants | CPT/HCPCS: 85610; 99211 ==

== ENCOUNTER 2021-12-13 15:49 | Outpatient (REF) | payer MEDICAID, SELFPAY ==
--- NOTE | ~2021-12-13 | CT_ITS ---
EXAMINATION: CT CHEST WITHOUT CONTRAST CLINICAL INFORMATION: Other disorder of lung. History of Covid 19 infection. COMPARISON: Previous CTA of the chest July 2019. TECHNIQUE: Multidetector volumetric CT imaging of the chest was done. Axial MIP volume rendering provided. Sagittal and coronal reformatted images were obtained. This CT examination was performed using dose optimization techniques as appropriate, variously including the following: *Automated exposure control *Adjustment of mA and/or kV according to patient size (this includes techniques or standardized protocols for targeted exams where dose is matched to indication/reason for exam; i.e. extremities or head) *Use of iterative reconstruction technique DLP: 198 mGy-cm. FINDINGS: LUNGS: There is evidence of mild paraseptal emphysema. There are scattered areas of increased peribronchial attenuation suggestive of airways disease. This is greatest in the right upper and right lower lobes. There is minimal scarring or subsegmental atelectasis at both lung bases. There are several small pulmonary nodules or micronodules. Largest is a 3 mm peripheral or subpleural left lower lobe nodule axial image 388 series 5 and right lower lobe 3 mm peripheral or subpleural nodule axial image 351 series 5. These appear similar to 2019 exam. No evidence of fibrotic lung disease is seen. MEDIASTINUM: The ascending thoracic aorta is upper normal in size. There is coronary artery calcification. The heart does not appear enlarged. There are small mediastinal lymph nodes that are stable. There is no pericardial effusion. PLEURA: There is no pleural effusion. No pleural mass or thickening. AXILLA: There is a fatty lesion in the right pectoralis muscle probably representing a lipoma that is stable. No other chest wall mass. No axillary lymphadenopathy. UPPER ABDOMEN: Unremarkable. OSSEOUS STRUCTURES: There are degenerative changes of the spine. Right lateral sixth rib appears unchanged. Small right cervical rib. CT/CT chest wo con IMPRESSION: No evidence of fibrotic lung disease. Mild paraseptal emphysema. Mild airways disease. Small pulmonary nodules or micronodules, largest measuring 3 mm. Upper normal-size thoracic aorta. Coronary artery calcification. Fleischner guidelines were followed.
== END 2021-12-13 15:50 | disposition home or self-care (01) ==
LOC: HO.CT 15:49
PROVIDERS: PCP Internal Medicine; Visit Provider Internal Medicine
DX: J70.4 Drug-induced interstitial lung disorders, unspecified (principal); Z86.16 Personal history of COVID-19
CPT/HCPCS: 71250

== ENCOUNTER → 2021-12-17 09:20 | Outpatient (BNVA) | payer MEDICAID, SELFPAY | PROVIDERS: PCP Internal Medicine; Visit Provider Internal Medicine | DX: I82.402 Acute embolism and thrombosis of unspecified deep veins of left lower extremity (principal); Z51.81 Encounter for therapeutic drug level monitoring; Z79.01 Long term (current) use of anticoagulants | CPT/HCPCS: 85610; 99211 ==

== ENCOUNTER → 2022-01-17 13:08 | Outpatient (BNVA) | payer MEDICAID, SELFPAY | PROVIDERS: PCP Internal Medicine; Visit Provider Internal Medicine | DX: I82.402 Acute embolism and thrombosis of unspecified deep veins of left lower extremity (principal); Z51.81 Encounter for therapeutic drug level monitoring; Z79.01 Long term (current) use of anticoagulants | CPT/HCPCS: 85610; 99211 ==

== ENCOUNTER → 2022-04-01 14:23 | Outpatient (BNVA) | payer MEDICAID, SELFPAY | PROVIDERS: PCP Internal Medicine; Visit Provider Internal Medicine | DX: I82.402 Acute embolism and thrombosis of unspecified deep veins of left lower extremity (principal); Z79.01 Long term (current) use of anticoagulants; Z51.81 Encounter for therapeutic drug level monitoring | CPT/HCPCS: 85610; 99211 ==

== ENCOUNTER → 2022-04-07 14:08 | Outpatient (BNVA) | payer MEDICAID, SELFPAY | PROVIDERS: PCP Internal Medicine; Visit Provider Internal Medicine | DX: I82.402 Acute embolism and thrombosis of unspecified deep veins of left lower extremity (principal); Z79.01 Long term (current) use of anticoagulants; Z51.81 Encounter for therapeutic drug level monitoring | CPT/HCPCS: 85610; 99211 ==

== ENCOUNTER → 2022-04-13 14:23 | Outpatient (BNVA) | payer MEDICAID, SELFPAY | PROVIDERS: PCP Internal Medicine; Visit Provider Internal Medicine | DX: I82.402 Acute embolism and thrombosis of unspecified deep veins of left lower extremity (principal); Z79.01 Long term (current) use of anticoagulants; Z51.81 Encounter for therapeutic drug level monitoring | CPT/HCPCS: 85610; 99211 ==

== ENCOUNTER → 2022-05-05 14:21 | Outpatient (BNVA) | payer MEDICAID, SELFPAY | PROVIDERS: PCP Internal Medicine; Visit Provider Internal Medicine | DX: I82.402 Acute embolism and thrombosis of unspecified deep veins of left lower extremity (principal); Z51.81 Encounter for therapeutic drug level monitoring; Z79.01 Long term (current) use of anticoagulants | CPT/HCPCS: 85610; 99212 ==

== ENCOUNTER → 2022-05-12 14:35 | Outpatient (BNVA) | payer MEDICAID, SELFPAY | PROVIDERS: PCP Internal Medicine; Visit Provider Internal Medicine | DX: I82.402 Acute embolism and thrombosis of unspecified deep veins of left lower extremity (principal); Z79.01 Long term (current) use of anticoagulants; Z51.81 Encounter for therapeutic drug level monitoring | CPT/HCPCS: 85610; 99211 ==

== ENCOUNTER → 2022-05-19 14:20 | Outpatient (BNVA) | payer MEDICAID, SELFPAY | PROVIDERS: PCP Internal Medicine; Visit Provider Internal Medicine | DX: I82.402 Acute embolism and thrombosis of unspecified deep veins of left lower extremity (principal); Z51.81 Encounter for therapeutic drug level monitoring; Z79.01 Long term (current) use of anticoagulants | CPT/HCPCS: 85610; 99211 ==

== ENCOUNTER → 2022-05-26 14:21 | Outpatient (BNVA) | payer MEDICAID, SELFPAY | PROVIDERS: PCP Internal Medicine; Visit Provider Internal Medicine | DX: I82.402 Acute embolism and thrombosis of unspecified deep veins of left lower extremity (principal); Z79.01 Long term (current) use of anticoagulants; Z51.81 Encounter for therapeutic drug level monitoring | CPT/HCPCS: 85610; 99211 ==

== ENCOUNTER → 2022-06-01 13:42 | Outpatient (BNVA) | payer MEDICAID, SELFPAY | PROVIDERS: PCP Internal Medicine; Visit Provider Internal Medicine | DX: I82.402 Acute embolism and thrombosis of unspecified deep veins of left lower extremity (principal); Z79.01 Long term (current) use of anticoagulants; Z51.81 Encounter for therapeutic drug level monitoring | CPT/HCPCS: 85610; 99211 ==

== ENCOUNTER → 2022-06-14 13:56 | Outpatient (BNVA) | payer MEDICAID, SELFPAY | PROVIDERS: PCP Internal Medicine; Visit Provider Internal Medicine | DX: I82.402 Acute embolism and thrombosis of unspecified deep veins of left lower extremity (principal); Z79.01 Long term (current) use of anticoagulants; Z51.81 Encounter for therapeutic drug level monitoring | CPT/HCPCS: 85610; 99211 ==

== ENCOUNTER → 2022-07-05 14:31 | Outpatient (BNVA) | payer MEDICAID, SELFPAY | PROVIDERS: PCP Internal Medicine; Visit Provider Internal Medicine | DX: I82.402 Acute embolism and thrombosis of unspecified deep veins of left lower extremity (principal); Z51.81 Encounter for therapeutic drug level monitoring; Z79.01 Long term (current) use of anticoagulants | CPT/HCPCS: 85610; 99211 ==

== ENCOUNTER → 2022-07-19 09:51 | Outpatient (BNVA) | payer MEDICAID, SELFPAY | PROVIDERS: PCP Internal Medicine; Visit Provider Internal Medicine | DX: I82.402 Acute embolism and thrombosis of unspecified deep veins of left lower extremity (principal); Z79.01 Long term (current) use of anticoagulants; Z51.81 Encounter for therapeutic drug level monitoring | CPT/HCPCS: 85610; 99211 ==

== ENCOUNTER → 2022-07-26 10:10 | Outpatient (BNVA) | payer MEDICAID, SELFPAY | PROVIDERS: PCP Internal Medicine; Visit Provider Internal Medicine | DX: I82.402 Acute embolism and thrombosis of unspecified deep veins of left lower extremity (principal); Z79.01 Long term (current) use of anticoagulants; Z51.81 Encounter for therapeutic drug level monitoring | CPT/HCPCS: 85610; 99211 ==

== ENCOUNTER → 2022-08-09 09:59 | Outpatient (BNVA) | payer MEDICAID, SELFPAY | PROVIDERS: PCP Internal Medicine; Visit Provider Internal Medicine | DX: I82.402 Acute embolism and thrombosis of unspecified deep veins of left lower extremity (principal); Z79.01 Long term (current) use of anticoagulants; Z51.81 Encounter for therapeutic drug level monitoring | CPT/HCPCS: 85610; 99211 ==

== ENCOUNTER → 2022-08-22 14:34 | Outpatient (BNVA) | payer MEDICAID, SELFPAY | PROVIDERS: PCP Internal Medicine; Visit Provider Internal Medicine | DX: I82.402 Acute embolism and thrombosis of unspecified deep veins of left lower extremity (principal); Z79.01 Long term (current) use of anticoagulants; Z51.81 Encounter for therapeutic drug level monitoring | CPT/HCPCS: 85610; 99211 ==

== ENCOUNTER → 2022-08-29 14:15 | Outpatient (BNVA) | payer MEDICAID, SELFPAY | PROVIDERS: PCP Internal Medicine; Visit Provider Internal Medicine | DX: I82.402 Acute embolism and thrombosis of unspecified deep veins of left lower extremity (principal); Z79.01 Long term (current) use of anticoagulants; Z51.81 Encounter for therapeutic drug level monitoring | CPT/HCPCS: 85610; 99211 ==

== ENCOUNTER → 2022-09-07 13:43 | Outpatient (BNVA) | payer MEDICAID, SELFPAY | PROVIDERS: PCP Internal Medicine; Visit Provider Internal Medicine | DX: I82.402 Acute embolism and thrombosis of unspecified deep veins of left lower extremity (principal); Z79.01 Long term (current) use of anticoagulants; Z51.81 Encounter for therapeutic drug level monitoring | CPT/HCPCS: 85610; 99211 ==

== ENCOUNTER → 2022-09-14 14:23 | Outpatient (BNVA) | payer MEDICAID, SELFPAY | PROVIDERS: PCP Internal Medicine; Visit Provider Internal Medicine | DX: I82.402 Acute embolism and thrombosis of unspecified deep veins of left lower extremity (principal); Z79.01 Long term (current) use of anticoagulants; Z51.81 Encounter for therapeutic drug level monitoring | CPT/HCPCS: 85610; 99211 ==

== ENCOUNTER → 2022-09-21 14:33 | Outpatient (BNVA) | payer MEDICAID, SELFPAY | PROVIDERS: PCP Internal Medicine; Visit Provider Internal Medicine | DX: I82.402 Acute embolism and thrombosis of unspecified deep veins of left lower extremity (principal); Z79.01 Long term (current) use of anticoagulants; Z51.81 Encounter for therapeutic drug level monitoring | CPT/HCPCS: 85610; 99211 ==

== ENCOUNTER → 2022-09-28 13:38 | Outpatient (BNVA) | payer MEDICAID, SELFPAY | PROVIDERS: PCP Internal Medicine; Visit Provider Internal Medicine | DX: I82.402 Acute embolism and thrombosis of unspecified deep veins of left lower extremity (principal); Z79.01 Long term (current) use of anticoagulants; Z51.81 Encounter for therapeutic drug level monitoring | CPT/HCPCS: 85610; 99211 ==

== ENCOUNTER → 2022-10-13 14:31 | Outpatient (BNVA) | payer MEDICAID, SELFPAY | PROVIDERS: PCP Internal Medicine; Visit Provider Internal Medicine | DX: I82.402 Acute embolism and thrombosis of unspecified deep veins of left lower extremity (principal); Z79.01 Long term (current) use of anticoagulants; Z51.81 Encounter for therapeutic drug level monitoring | CPT/HCPCS: 85610; 99211 ==

== ENCOUNTER → 2022-10-26 14:18 | Outpatient (BNVA) | payer MEDICAID, SELFPAY | PROVIDERS: PCP Internal Medicine; Visit Provider Internal Medicine | DX: I82.402 Acute embolism and thrombosis of unspecified deep veins of left lower extremity (principal); Z79.01 Long term (current) use of anticoagulants; Z51.81 Encounter for therapeutic drug level monitoring | CPT/HCPCS: 85610; 99211 ==

== ENCOUNTER → 2022-11-09 14:04 | Outpatient (BNVA) | payer MEDICAID, SELFPAY | PROVIDERS: PCP Internal Medicine; Visit Provider Internal Medicine | DX: I82.402 Acute embolism and thrombosis of unspecified deep veins of left lower extremity (principal); Z79.01 Long term (current) use of anticoagulants; Z51.81 Encounter for therapeutic drug level monitoring | CPT/HCPCS: 85610; 99211 ==

== ENCOUNTER → 2022-11-23 13:53 | Outpatient (BNVA) | payer MEDICAID, SELFPAY | PROVIDERS: PCP Internal Medicine; Visit Provider Internal Medicine | DX: I82.402 Acute embolism and thrombosis of unspecified deep veins of left lower extremity (principal); Z79.01 Long term (current) use of anticoagulants; Z51.81 Encounter for therapeutic drug level monitoring | CPT/HCPCS: 85610; 99211 ==

== ENCOUNTER → 2022-11-28 14:00 | Outpatient (BNVA) | payer MEDICAID, SELFPAY | PROVIDERS: PCP Internal Medicine; Visit Provider Internal Medicine | DX: I82.402 Acute embolism and thrombosis of unspecified deep veins of left lower extremity (principal); Z79.01 Long term (current) use of anticoagulants; Z51.81 Encounter for therapeutic drug level monitoring | CPT/HCPCS: 85610; 99211 ==

== ENCOUNTER → 2022-12-05 13:12 | Outpatient (BNVA) | payer MEDICAID, SELFPAY | PROVIDERS: PCP Internal Medicine; Visit Provider Internal Medicine | DX: I82.402 Acute embolism and thrombosis of unspecified deep veins of left lower extremity (principal); Z79.01 Long term (current) use of anticoagulants; Z51.81 Encounter for therapeutic drug level monitoring | CPT/HCPCS: 85610; 99211 ==

== ENCOUNTER 2022-12-08 12:46 | Outpatient (REF) | payer MEDICAID, SELFPAY ==
--- NOTE | 2022-12-08 | PFT_ITS ---
FLOWS: FEV1 84% of predicted at 2.67 L. FVC 85% of predicted at 3.1 L. FEV1 to FVC ratio of 0.76. No bronchodilator response. LUNG VOLUMES: Total lung capacity 81% of predicted at 5.22 L. Residual volume 80% of predicted at 1.73 L. Slow vital capacity 81% of predicted at 3.48 L. Expiratory reserve volume 34% of predicted at 0.40 L. Diffusion capacity is normal. IMPRESSION: No obstructive or restrictive ventilatory defect. No bronchodilator response. Decreased expiratory reserve volume suggests extrathoracic restriction likely secondary to abdominal obesity. Geoff Arellano MD AP/MODL / [id number]
== END 2022-12-08 12:47 | disposition home or self-care (01) ==
LOC: HO.RESP 12:46
PROVIDERS: PCP Internal Medicine; Visit Provider Internal Medicine
DX: J45.20 Mild intermittent asthma, uncomplicated (principal)
CPT/HCPCS: 94060; 94727; 94729

== ENCOUNTER → 2022-12-12 13:03 | Outpatient (BNVA) | payer MEDICAID, SELFPAY | PROVIDERS: PCP Internal Medicine; Visit Provider Internal Medicine | DX: I82.402 Acute embolism and thrombosis of unspecified deep veins of left lower extremity (principal); Z79.01 Long term (current) use of anticoagulants; Z51.81 Encounter for therapeutic drug level monitoring | CPT/HCPCS: 85610; 99211 ==

== ENCOUNTER → 2022-12-19 12:59 | Outpatient (BNVA) | payer MEDICAID, SELFPAY | PROVIDERS: PCP Internal Medicine; Visit Provider Internal Medicine | DX: I82.402 Acute embolism and thrombosis of unspecified deep veins of left lower extremity (principal); Z79.01 Long term (current) use of anticoagulants; Z51.81 Encounter for therapeutic drug level monitoring | CPT/HCPCS: 85610; 99211 ==

== ENCOUNTER → 2022-12-29 13:22 | Outpatient (BNVA) | payer MEDICAID, SELFPAY | PROVIDERS: PCP Internal Medicine; Visit Provider Internal Medicine | DX: I82.402 Acute embolism and thrombosis of unspecified deep veins of left lower extremity (principal); Z79.01 Long term (current) use of anticoagulants; Z51.81 Encounter for therapeutic drug level monitoring | CPT/HCPCS: 85610; 99211 ==

== ENCOUNTER → 2023-01-05 13:34 | Outpatient (BNVA) | payer MEDICAID, SELFPAY | PROVIDERS: PCP Internal Medicine; Visit Provider Internal Medicine | DX: I82.402 Acute embolism and thrombosis of unspecified deep veins of left lower extremity (principal); Z79.01 Long term (current) use of anticoagulants; Z51.81 Encounter for therapeutic drug level monitoring | CPT/HCPCS: 85610; 99211 ==

== ENCOUNTER → 2023-01-19 13:15 | Outpatient (BNVA) | payer MEDICAID, SELFPAY | PROVIDERS: PCP Internal Medicine; Visit Provider Internal Medicine | DX: I82.402 Acute embolism and thrombosis of unspecified deep veins of left lower extremity (principal); Z79.01 Long term (current) use of anticoagulants; Z51.81 Encounter for therapeutic drug level monitoring | CPT/HCPCS: 85610; 99211 ==

== ENCOUNTER → 2023-02-01 13:33 | Outpatient (BNVA) | payer MEDICAID, SELFPAY | PROVIDERS: PCP Internal Medicine; Visit Provider Internal Medicine | DX: I82.402 Acute embolism and thrombosis of unspecified deep veins of left lower extremity (principal); Z79.01 Long term (current) use of anticoagulants; Z51.81 Encounter for therapeutic drug level monitoring | CPT/HCPCS: 85610; 99211 ==

== ENCOUNTER → 2023-02-15 13:23 | Outpatient (BNVA) | payer MEDICAID, SELFPAY | PROVIDERS: PCP Internal Medicine; Visit Provider Internal Medicine | DX: I82.402 Acute embolism and thrombosis of unspecified deep veins of left lower extremity (principal); Z51.81 Encounter for therapeutic drug level monitoring; Z79.01 Long term (current) use of anticoagulants | CPT/HCPCS: 85610; 99211 ==

== ENCOUNTER → 2023-03-06 13:26 | Outpatient (BNVA) | payer MEDICAID, SELFPAY | PROVIDERS: PCP Internal Medicine; Visit Provider Internal Medicine | DX: I82.402 Acute embolism and thrombosis of unspecified deep veins of left lower extremity (principal); Z79.01 Long term (current) use of anticoagulants; Z51.81 Encounter for therapeutic drug level monitoring | CPT/HCPCS: 85610; 99211 ==

== ENCOUNTER → 2023-03-09 13:12 | Outpatient (BNVA) | payer MEDICAID, SELFPAY | PROVIDERS: PCP Internal Medicine; Visit Provider Internal Medicine | DX: I82.402 Acute embolism and thrombosis of unspecified deep veins of left lower extremity (principal); Z79.01 Long term (current) use of anticoagulants; Z51.81 Encounter for therapeutic drug level monitoring | CPT/HCPCS: 85610; 99211 ==

== ENCOUNTER → 2023-04-13 13:22 | Outpatient (BNVA) | payer MEDICAID, SELFPAY | PROVIDERS: PCP Internal Medicine; Visit Provider Internal Medicine | DX: I82.402 Acute embolism and thrombosis of unspecified deep veins of left lower extremity (principal); Z79.01 Long term (current) use of anticoagulants; Z51.81 Encounter for therapeutic drug level monitoring | CPT/HCPCS: 85610; 99211 ==

== ENCOUNTER → 2023-04-20 13:02 | Outpatient (BNVA) | payer MEDICAID, SELFPAY | PROVIDERS: PCP Internal Medicine; Visit Provider Internal Medicine | DX: I82.402 Acute embolism and thrombosis of unspecified deep veins of left lower extremity (principal); Z79.01 Long term (current) use of anticoagulants; Z51.81 Encounter for therapeutic drug level monitoring | CPT/HCPCS: 85610; 99211 ==

== ENCOUNTER → 2023-05-01 13:02 | Outpatient (BNVA) | payer MEDICAID, SELFPAY | PROVIDERS: PCP Internal Medicine; Visit Provider Internal Medicine | DX: I82.402 Acute embolism and thrombosis of unspecified deep veins of left lower extremity (principal); Z51.81 Encounter for therapeutic drug level monitoring; Z79.01 Long term (current) use of anticoagulants | CPT/HCPCS: 85610; 99211 ==

== ENCOUNTER → 2023-05-08 13:02 | Outpatient (BNVA) | payer MEDICAID, SELFPAY | PROVIDERS: PCP Internal Medicine; Visit Provider Internal Medicine | DX: I82.402 Acute embolism and thrombosis of unspecified deep veins of left lower extremity (principal); Z79.01 Long term (current) use of anticoagulants; Z51.81 Encounter for therapeutic drug level monitoring | CPT/HCPCS: 85610; 99211 ==

== ENCOUNTER 2023-05-15 13:06 | Outpatient (AMB) | payer MEDICAID, SELFPAY ==
[2023-05-15 13:39] LABS: Prothrombin Time Whole Bld POC 32.3 sec (11.1-13.5); ~PT, ~INR - Anti Coag Clinic 2.7 (0.9-1.1)
--- NOTE | 2023-05-15 13:40 | MHC.OFFVISCO ---
Intake Intake Visit Reasons: Anticoagulation Allergies MRI DYE Allergy (Severe, Uncoded 05/15/23 13:32) Swelling Medication List - Last Reconciled 05/15/23 by Carmen Nichols RN albuterol sulfate 90 mcg/actuation (ProAir HFA) 2 puffs PO QID amlodipine-benazepril 5-10 mg 1 cap PO QAM blood pressure test kit-large As directed blood sugar diagnostic (FreeStyle Lite Strips) As directed blood-glucose meter (FreeStyle [place] Lite kit) As directed cetirizine 10 mg PO DAILY clonidine HCl 0.1 mg PO BID diclofenac sodium 1% grams topical fluticasone propionate 50 mcg/actuation 2 sprays intranasal DAILY gabapentin 300 mg PO BEDTIME guanfacine 1 mg PO DAILY lancets (TRUEplus Lancets) As directed lisinopril 10 mg PO DAILY metformin 750 mg PO BID metformin ER 750 mg PO BID mirtazapine 45 mg PO BEDTIME aafsxsyg-xdf-TH-lycopen-lutein 300-600-300 mcg (Centrum Silver Men) 1 tab PO DAILY quetiapine ER 50 mg PO BEDTIME warfarin See Protocol 7.5 mg orally 7.5mg x 5 days/ 11.25mg x 2 days; Nursing Note INR: 2.7 in therapeutic range Medications and supplements reviewed No changes in health, diet, medications, or supplements, Denies any signs and symptoms of bleeding or bruising or clotting. Bleeding, bruising, clotting discussed Nutritional guidance given- keep eating weekly greens , eat more greens when eating more reds or taking tylenol Dose: 11.25mg x 1 day/ 7.5mg x 6 days F/U INR: 2 weeks Patient verbalizes understanding of instructions given Anti-Coag Initial Assessment Social Hx Patient Tobacco Use Status: Never used Tobacco alcohol intake: former Alcohol intake frequency: does not drink Coding Level of Care Code Est Patient Level 1 Diagnoses Current use of anticoagulant therapy Z79.01 Results AMB INR Fingerstick AMB INR Fingerstick 2.7 Last Edit by Carmen Nichols RN on 05/15/23 13:41 manual entry ongoing interfacing failure Assessment & Plan Assessment & Plan (1) Current use of anticoagulant therapy: Code(s): Z79.01 - custodial (current) use of anticoagulants Category: Medical
== END 2023-05-15 13:46 | disposition home or self-care (01) ==
LOC: HO.ACS 13:06
PROVIDERS: PCP Internal Medicine; Visit Provider Internal Medicine
DX: Z79.01 Long term (current) use of anticoagulants (principal)

== ENCOUNTER → 2023-05-15 13:06 | Outpatient (BNVA) | payer MEDICAID, SELFPAY | PROVIDERS: PCP Internal Medicine; Visit Provider Internal Medicine | DX: I82.402 Acute embolism and thrombosis of unspecified deep veins of left lower extremity (principal); Z79.01 Long term (current) use of anticoagulants; Z51.81 Encounter for therapeutic drug level monitoring | CPT/HCPCS: 85610; 99211 ==

== ENCOUNTER 2023-07-21 11:22 | Outpatient (AMB) | payer MEDICAID, SELFPAY ==
[2023-07-21 12:02] LABS: Prothrombin Time Whole Bld POC 46.2 sec (11.1-13.5); ~PT, ~INR - Anti Coag Clinic 3.8 (0.9-1.1)
--- NOTE | 2023-07-21 12:12 | MHC.OFFVISCO ---
Intake Intake Visit Reasons: Anticoagulation Allergies MRI DYE Allergy (Severe, Uncoded 07/21/23 11:52) Swelling Medication List - Last Reconciled 07/21/23 by Amanda Lester RN albuterol sulfate 90 mcg/actuation (ProAir HFA) 2 puffs PO QID amlodipine-benazepril 5-10 mg 1 cap PO QAM blood pressure test kit-large As directed blood sugar diagnostic (FreeStyle Lite Strips) As directed blood-glucose meter (FreeStyle [place] Lite kit) As directed cetirizine 10 mg PO DAILY diclofenac sodium 1% grams topical fluticasone propionate 50 mcg/actuation 2 sprays intranasal DAILY gabapentin 300 mg PO BEDTIME guanfacine 1 mg PO DAILY lancets (TRUEplus Lancets) As directed lisinopril 10 mg PO DAILY metformin ER 750 mg PO BID mirtazapine 45 mg PO BEDTIME ws-dks-ejvcz-Y8-stkvvvf-ijymbd 220-67-720-300 mcg (Centrum Silver Men) 1 tab PO DAILY warfarin See Protocol 7.5 mg orally 7.5mg x 5 days/ 11.25mg x 2 days; Nursing Note Amb to [facility] EARLY FOR SCHED 1400 APPOINTMENT, sts he was at PCP appt (at [facility]) and decided he he would try to get seen here earlier. Pt last seen here May 15, 2023, NS/NC 05/29 pt sts he went to [place] thought he would be there only a week but stayed a month. (returned to area 07/17) Pt reminded about clinic policy to call if unable to make appointment Medications and supplements reviewed, pt now off clonidine for about a month (no warfarin interaction per micromedex) and seroquel, Off x 1 month(per micromedex is an INR raiser, discontinuation of med may cause a decrease in INR) pt never called with medication changes No other changes in health, diet, medications, or supplements other than sts he did not have a diet including many greens while away and was taking aspirin almost daily for neck pain discussion and education regarding aspirin and warfarin use increase bleeding risk, GI bleed Denies any unusual signs and symptoms of bruising, bleeding Denies any new Chest pain, SOB, or clotting INR: 3.8 above therapeutic range Nutritional guidance given:dark leafy greens today, beaware of the lowering power of cooked spinach, ok for a small serving but hen needs to balance with other greens or raw spinach in salads and balance greens and reds in diet Dose: decrease dosing today to 3.75 the resume usual dosing 11.25mg x 1 days and 7.5 mg x 6 days, will re evaluate dosing at next INR check; F/U INR:2 weeks, stressed importance of F/U especially related to medication changes Patient verbalizes understanding of instructions given with accurate read back/ teach back of dosing Anti-Coag Initial Assessment Social Hx Patient Tobacco Use Status: Never used Tobacco alcohol intake: former Alcohol intake frequency: does not drink Coding Level of Care Code Est Patient Level 2 Diagnoses Current use of anticoagulant therapy Z79.01 Time Spent (min) 30 Assessment & Plan Assessment & Plan (1) Current use of anticoagulant therapy: Code(s): Z79.01 - intermission coordinator (current) use of anticoagulants Category: Medical
== END 2023-07-21 15:19 | disposition home or self-care (01) ==
LOC: HO.ACS 11:22
PROVIDERS: PCP Internal Medicine; Visit Provider Internal Medicine
DX: Z79.01 Long term (current) use of anticoagulants (principal)

== ENCOUNTER → 2023-07-21 11:22 | Outpatient (BNVA) | payer MEDICAID, SELFPAY | PROVIDERS: PCP Internal Medicine; Visit Provider Internal Medicine | DX: I82.402 Acute embolism and thrombosis of unspecified deep veins of left lower extremity (principal); Z79.01 Long term (current) use of anticoagulants; Z51.81 Encounter for therapeutic drug level monitoring | CPT/HCPCS: 85610; 99212 ==

== ENCOUNTER 2023-07-24 09:59 | Outpatient (REF) | payer MEDICAID, SELFPAY ==
[2023-07-24 12:22] LABS: Cholesterol 255 mg/dL (<200); HDL Cholesterol 55 mg/dL (>40); LDL Cholesterol Calculated 131 mg/dL (<100); Triglycerides 347 mg/dL (<150)
[2023-07-24 12:35] LABS: Alanine Aminotransferase 84 U/L (0-40); Alkaline Phosphatase 39 U/L (39-117); Anion Gap 12 (12-20); Aspartate Amino Transferase 59 U/L (5-37); Bilirubin Total 0.6 mg/dL (0.0-1.0); Blood Urea Nitrogen 15 mg/dL (9-16); Calcium 9.9 mg/dL (8.4-10.2); Carbon Dioxide 28 mmol/L (22-29); Chloride 106 mmol/L (96-108); Estimated Glomerular Filt Rate > 60; Glucose Random 148 mg/dL (60-115); Potassium 4.7 mmol/L (3.3-5.1); Sodium 141 mmol/L (135-145); TSH reflex Free T4 1.63 uIU/mL (0.32-4.0); Total Protein 6.6 g/dL (6.5-8.0)
[2023-07-24 12:59] LABS: Folate 17.1 ng/mL (> or = 4.0); Vitamin B12 356 pg/mL (200-900)
[2023-07-24 13:37] LABS: Reflex LDLD? No
[2023-07-25 04:51] LABS: Syphilis Screen Nonreactive (Nonreactive)
[2023-07-25 05:33] LABS: HBc Num1 0.13 S/CO (0.00-0.79); HBsAGNum1 0.31 S/CO (0.00-0.99); Hepatitis A Antibody IgM 0.12 Index (0-0.79); Hepatitis B Core Antibody Nonreactive (Nonreactive); Hepatitis B Surface Antigen Negative (Negative); ~HepC Num1 0.06 S/CO (0.00-0.79); ~Hepatitis A Antibody IgM Nonreactive (Nonreactive); ~Hepatitis B Surface Antibody REACTIVE (Nonreactive); ~Hepatitis C Antibody Nonreactive (Nonreactive)
[2023-07-26 16:29] LABS: TS Negative Control Passed; TS Panel A 2; TS Panel B 0; TS Positive Control Passed; TSpotTB Negative (Negative)
== END 2023-07-24 10:00 | disposition home or self-care (01) ==
LOC: HO.HHCL 09:59
PROVIDERS: Visit Provider Internal Medicine
DX: Z00.00 Encounter for general adult medical examination without abnormal findings (principal); Z11.1 Encounter for screening for respiratory tuberculosis; E11.65 Type 2 diabetes mellitus with hyperglycemia; I10 Essential (primary) hypertension
CPT/HCPCS: 36415; 80053; 80061; 82306; 82607; 82746; 84443; 86481; 86704; 86706; 86709; 86780; 86803; 87340

== ENCOUNTER 2023-08-03 13:03 | Outpatient (AMB) | payer MEDICAID, SELFPAY ==
[2023-08-03 13:16] LABS: ~PT, ~INR - Anti Coag Clinic 5.4 (0.9-1.1)
--- NOTE | 2023-08-03 13:26 | MHC.OFFVISCO ---
Intake Intake Visit Reasons: Anticoagulation Allergies MRI DYE Allergy (Severe, Uncoded 08/03/23 13:08) Swelling Medication List - Last Reconciled 08/03/23 by Amanda Lester, RN albuterol sulfate 90 mcg/actuation (ProAir HFA) 2 puffs PO QID blood pressure test kit-large As directed blood sugar diagnostic (FreeStyle Lite Strips) As directed blood-glucose meter (FreeStyle [place] Lite kit) As directed diclofenac sodium 1% grams topical fluticasone propionate 50 mcg/actuation 2 sprays intranasal DAILY gabapentin 300 mg PO BEDTIME guanfacine 1 mg PO DAILY lancets (TRUEplus Lancets) As directed lisinopril 10 mg PO DAILY metformin ER 750 mg PO BID mirtazapine 45 mg PO BEDTIME [id number]-urt-kojqf-Y0-vbqdkgz-rghwet 868-18-078-300 mcg (Centrum Silver Men) 1 tab PO DAILY warfarin See Protocol 7.5 mg orally 7.5mg x 5 days/ 11.25mg x 2 days; Nursing Note Amb to [facility] feeling ok Medications and supplements reviewed, sts off amlopdipine, taking lisinopril No changes in health, diet, medications, or supplements Denies any unusual signs and symptoms of bruising, bleeding Denies any new Chest pain, SOB, or clotting INR:5.4 above therapeutic range, offered and declined lab draw- pt indicates he has been eating a lot of watermelon, grapes and apples, denies any ETOH Nutritional guidance given: no reds x 3 days, dark leafy greens for 2-3 days then balance greens and reds in diet Dose: hold warfarin today will decrease weekly dose to 7.5mg daily, reviewed dosing sheet with pt; F/U INR: 08/09 Patient verbalizes understanding of instructions given with accurate read back/ teach back of dosing Anti-Coag Initial Assessment Social Hx Patient Tobacco Use Status: Never used Tobacco alcohol intake: former Alcohol intake frequency: does not drink Coding Level of Care Code Est Patient Level 1 Diagnoses Current use of anticoagulant therapy Z79.01 Time Spent (min) 15 Assessment & Plan Assessment & Plan (1) Current use of anticoagulant therapy: Code(s): Z79.01 - care home (current) use of anticoagulants Category: Medical
== END 2023-08-03 13:35 | disposition home or self-care (01) ==
LOC: HO.ACS 13:03
PROVIDERS: PCP Internal Medicine; Visit Provider Internal Medicine
DX: Z79.01 Long term (current) use of anticoagulants (principal)

== ENCOUNTER → 2023-08-03 13:03 | Outpatient (BNVA) | payer MEDICAID, SELFPAY | PROVIDERS: PCP Internal Medicine; Visit Provider Internal Medicine | DX: I82.402 Acute embolism and thrombosis of unspecified deep veins of left lower extremity (principal); Z79.01 Long term (current) use of anticoagulants; Z51.81 Encounter for therapeutic drug level monitoring | CPT/HCPCS: 85610; 99211 ==

== ENCOUNTER 2023-08-09 13:01 | Outpatient (AMB) | payer MEDICAID, SELFPAY ==
--- NOTE | 2023-08-09 13:06 | MHC.OFFVISCO ---
Intake Intake Visit Reasons: Anticoagulation Allergies MRI DYE Allergy (Severe, Uncoded 08/09/23 13:13) Swelling Medication List - Last Reconciled 08/09/23 by Nieves Hernandez RN albuterol sulfate 90 mcg/actuation (ProAir HFA) 2 puffs PO QID blood pressure test kit-large As directed blood sugar diagnostic (FreeStyle Lite Strips) As directed blood-glucose meter (FreeStyle [place] Lite kit) As directed diclofenac sodium 1% grams topical fluticasone propionate 50 mcg/actuation 2 sprays intranasal DAILY gabapentin 300 mg PO BEDTIME guanfacine 1 mg PO DAILY lancets (TRUEplus Lancets) As directed lisinopril 10 mg PO DAILY metformin ER 750 mg PO BID mirtazapine 45 mg PO BEDTIME po-gfe-otdbc-O5-yaamluw-bxiufu 093-73-507-300 mcg (Centrum Silver Men) 1 tab PO DAILY warfarin See Protocol 7.5 mg orally 7.5mg x 5 days/ 11.25mg x 2 days; Nursing Note INR 3.7-?? out of therapeutic range Medications and supplements reviewed Patient status: no c.o Medications or supplements: no changes Diet: same- pt eating more reds, food list reviewed increase greens in weekly diet Denies any signs and symptoms of bleeding or clotting or unusual bruising Bleeding, bruising, clotting discussed Nutritional guidance given: eat greens to lower inr, no reds for 2 -3 days Dose: 3.75mg today then cont 7.5mg daily F/U INR Date : 1 week? Patient verbalizing understanding of instructions given. Anti-Coag Initial Assessment Social Hx Patient Tobacco Use Status: Never used Tobacco alcohol intake: former Alcohol intake frequency: does not drink Coding Level of Care Code Est Patient Level 1 Diagnoses Current use of anticoagulant therapy Z79.01 Assessment & Plan Assessment & Plan (1) Current use of anticoagulant therapy: Code(s): Z79.01 - USP (current) use of anticoagulants Category: Medical
[2023-08-09 13:08] LABS: ~PT, ~INR - Anti Coag Clinic 3.7 (0.9-1.1)
== END 2023-08-09 13:14 | disposition home or self-care (01) ==
LOC: HO.ACS 13:01
PROVIDERS: PCP Internal Medicine; Visit Provider Internal Medicine
DX: Z79.01 Long term (current) use of anticoagulants (principal)

== ENCOUNTER → 2023-08-09 13:01 | Outpatient (BNVA) | payer MEDICAID, SELFPAY | PROVIDERS: PCP Internal Medicine; Visit Provider Internal Medicine | DX: I82.402 Acute embolism and thrombosis of unspecified deep veins of left lower extremity (principal); Z51.81 Encounter for therapeutic drug level monitoring; Z79.01 Long term (current) use of anticoagulants | CPT/HCPCS: 85610; 99211 ==

== ENCOUNTER 2023-08-15 13:43 | Outpatient (AMB) | payer MEDICAID, SELFPAY ==
--- NOTE | 2023-08-15 13:52 | MHC.OFFVISCO ---
Intake Intake Visit Reasons: Anticoagulation Allergies MRI DYE Allergy (Severe, Uncoded 08/15/23 13:48) Swelling Medication List - Last Reconciled 08/15/23 by Nieves Hernandez RN albuterol sulfate 90 mcg/actuation (ProAir HFA) 2 puffs PO QID blood pressure test kit-large As directed blood sugar diagnostic (FreeStyle Lite Strips) As directed blood-glucose meter (FreeStyle [place] Lite kit) As directed diclofenac sodium 1% grams topical fluticasone propionate 50 mcg/actuation 2 sprays intranasal DAILY gabapentin 300 mg PO BEDTIME guanfacine 1 mg PO DAILY lancets (TRUEplus Lancets) As directed lisinopril 10 mg PO DAILY metformin ER 750 mg PO BID mirtazapine 45 mg PO BEDTIME sr-hve-iexms-B4-clrgvrx-eklhrg 200-70-316-300 mcg (Centrum Silver Men) 1 tab PO DAILY warfarin See Protocol 7.5 mg orally 7.5mg x 5 days/ 11.25mg x 2 days; Nursing Note INR 1.4-?? out of therapeutic range- denies missed dose Medications and supplements reviewed Patient status: c.o fatigue, pcp aware Medications or supplements: pt states taking ambien for one month, recently increased to 10mg - no interaction per micromedex Diet: variable- has been eating more reds Denies any signs and symptoms of bleeding or clotting or unusual bruising Bleeding, bruising, clotting discussed - aware at risk for clotting Nutritional guidance given: eat reds to raise inr Dose: 11.25mg today and tomm 7.5mg thur F/U INR Date : monday08/18/23 Patient verbalizing understanding of instructions given. t/c placed to [facility] pcp dr blanca to report low inr/dosing and f/u appt- v/m left for return call at 1405 return call from lindsey at [phone] Anti-Coag Initial Assessment Social Hx Patient Tobacco Use Status: Never used Tobacco alcohol intake: former Alcohol intake frequency: does not drink Coding Level of Care Code Est Patient Level 1 Diagnoses Current use of anticoagulant therapy Z79.01 Assessment & Plan Assessment & Plan (1) Current use of anticoagulant therapy: Code(s): Z79.01 - [facility] (current) use of anticoagulants Category: Medical Medications: New zolpidem (Ambien) 10 mg PO BEDTIME Changed From warfarin See Protocol 7.5 mg orally 7.5mg x 5 days/ 11.25mg x 2 days; To warfarin 7.5 mg See Protocol PO DAILY
== END 2023-08-15 14:06 | disposition home or self-care (01) ==
LOC: HO.ACS 13:43
PROVIDERS: PCP Internal Medicine; Visit Provider Internal Medicine
DX: Z79.01 Long term (current) use of anticoagulants (principal)

== ENCOUNTER → 2023-08-15 13:43 | Outpatient (BNVA) | payer MEDICAID, SELFPAY | PROVIDERS: PCP Internal Medicine; Visit Provider Internal Medicine | DX: I82.402 Acute embolism and thrombosis of unspecified deep veins of left lower extremity (principal); Z79.01 Long term (current) use of anticoagulants; Z51.81 Encounter for therapeutic drug level monitoring | CPT/HCPCS: 85610; 99211 ==

== ENCOUNTER 2023-08-22 13:37 | Outpatient (AMB) | payer MEDICAID, SELFPAY ==
[2023-08-22 13:56] LABS: Prothrombin Time Whole Bld POC 34.3 sec (11.1-13.5); ~PT, ~INR - Anti Coag Clinic 2.9 (0.9-1.1)
--- NOTE | 2023-08-22 13:57 | MHC.OFFVISCO ---
Intake Intake Visit Reasons: Anticoagulation Allergies MRI DYE Allergy (Severe, Uncoded 08/22/23 13:47) Swelling Medication List - Last Reconciled 08/22/23 by Amanda Lester, RN albuterol sulfate 90 mcg/actuation (ProAir HFA) 2 puffs PO QID blood pressure test kit-large As directed blood sugar diagnostic (FreeStyle Lite Strips) As directed blood-glucose meter (FreeStyle [place] Lite kit) As directed diclofenac sodium 1% grams topical fluticasone propionate 50 mcg/actuation 2 sprays intranasal DAILY gabapentin 300 mg PO BEDTIME guanfacine 1 mg PO DAILY lancets (TRUEplus Lancets) As directed lisinopril 10 mg PO DAILY metformin ER 750 mg PO BID mirtazapine 45 mg PO BEDTIME mn-cko-bcvzz-A5-fygzcxg-jjrksj 364-58-597-300 mcg (Centrum Silver Men) 1 tab PO DAILY warfarin 7.5 mg See Protocol PO DAILY zolpidem (Ambien) 10 mg PO BEDTIME Nursing Note Amb to [facility] feeling well, sts he rescheduled from Fridays missed appt as he was having furniture delivered Medications and supplements reviewed No changes in health, diet, medications, or supplements -pt is not sure why his INR was low last visit but indicates he only increased dose on 1 day encouraged to keep dosing sheet by his pill box and to make sure he takes his medicine (denies any missed doses) and to follow dose sheet to make any changes to dosing in the pill box Denies any unusual signs and symptoms of bruising, bleeding Denies any new Chest pain, SOB, or clotting INR: 2.9 now in therapeutic range Nutritional guidance given: balance greens and reds in diet, be consistent F/U INR: 2 weeks Patient verbalizes understanding of instructions given with accurate read back/ teach back of dosing Anti-Coag Initial Assessment Social Hx Patient Tobacco Use Status: Never used Tobacco alcohol intake: former Alcohol intake frequency: does not drink Coding Level of Care Code Est Patient Level 1 Diagnoses Current use of anticoagulant therapy Z79.01 Time Spent (min) 15 Assessment & Plan Assessment & Plan (1) Current use of anticoagulant therapy: Code(s): Z79.01 - terminal press operator (current) use of anticoagulants Category: Medical
== END 2023-08-22 14:05 | disposition home or self-care (01) ==
LOC: HO.ACS 13:37
PROVIDERS: PCP Internal Medicine; Visit Provider Internal Medicine
DX: Z79.01 Long term (current) use of anticoagulants (principal)

== ENCOUNTER → 2023-08-22 13:37 | Outpatient (BNVA) | payer MEDICAID, SELFPAY | PROVIDERS: PCP Internal Medicine; Visit Provider Internal Medicine | DX: I82.402 Acute embolism and thrombosis of unspecified deep veins of left lower extremity (principal); Z79.01 Long term (current) use of anticoagulants; Z51.81 Encounter for therapeutic drug level monitoring | CPT/HCPCS: 85610; 99211 ==

== ENCOUNTER 2023-09-05 13:34 | Outpatient (AMB) | payer MEDICAID, SELFPAY ==
[2023-09-05 13:43] LABS: ~PT, ~INR - Anti Coag Clinic 3.4 (0.9-1.1)
--- NOTE | 2023-09-05 13:51 | MHC.OFFVISCO ---
Intake Intake Visit Reasons: Anticoagulation Allergies MRI DYE Allergy (Severe, Uncoded 09/05/23 13:36) Swelling Medication List - Last Reconciled 09/05/23 by Amanda Lester RN albuterol sulfate 90 mcg/actuation (ProAir HFA) 2 puffs PO QID blood pressure test kit-large As directed blood sugar diagnostic (FreeStyle Lite Strips) As directed blood-glucose meter (FreeStyle [place] Lite kit) As directed diclofenac sodium 1% grams topical fluticasone propionate 50 mcg/actuation 2 sprays intranasal DAILY gabapentin 300 mg PO BEDTIME guanfacine 1 mg PO DAILY lancets (TRUEplus Lancets) As directed lisinopril 10 mg PO DAILY metformin ER 750 mg PO BID mirtazapine 45 mg PO BEDTIME di-vab-saalc-A1-bgcheob-ywukog 029-47-900-300 mcg (Centrum Silver Men) 1 tab PO DAILY warfarin 7.5 mg See Protocol PO DAILY zolpidem (Ambien) 10 mg PO BEDTIME Nursing Note Amb to [facility] feeling well Medications and supplements reviewed No changes in health, diet, medications, or supplements Denies any unusual signs and symptoms of bruising, bleeding Denies any new Chest pain, SOB, or clotting INR: 3.4 above therapeutic range, eating grapes and plantains Nutritional guidance given: greens today then balance greens and reds in diet Dose: decrease dsoe today to 3.75mg then resume usual dosing; 7.5mg daily F/U INR: 2 weeks Patient verbalizes understanding of instructions given with accurate read back/ teach back of dosing Anti-Coag Initial Assessment Social Hx Patient Tobacco Use Status: Never used Tobacco alcohol intake: former Alcohol intake frequency: does not drink Coding Level of Care Code Est Patient Level 1 Diagnoses Current use of anticoagulant therapy Z79.01 Time Spent (min) 15 Assessment & Plan Assessment & Plan (1) Current use of anticoagulant therapy: Code(s): Z79.01 - long-term (current) use of anticoagulants Category: Medical
== END 2023-09-05 13:54 | disposition home or self-care (01) ==
LOC: HO.ACS 13:34
PROVIDERS: PCP Internal Medicine; Visit Provider Internal Medicine
DX: Z79.01 Long term (current) use of anticoagulants (principal)

== ENCOUNTER → 2023-09-05 13:34 | Outpatient (BNVA) | payer MEDICAID, SELFPAY | PROVIDERS: PCP Internal Medicine; Visit Provider Internal Medicine | DX: I82.402 Acute embolism and thrombosis of unspecified deep veins of left lower extremity (principal); Z79.01 Long term (current) use of anticoagulants; Z51.81 Encounter for therapeutic drug level monitoring | CPT/HCPCS: 85610; 99211 ==

== ENCOUNTER 2023-09-19 13:01 | Outpatient (AMB) | payer MEDICAID, SELFPAY ==
[2023-09-19 13:38] LABS: Prothrombin Time Whole Bld POC 25.1 sec (11.1-13.5); ~PT, ~INR - Anti Coag Clinic 2.1 (0.9-1.1)
--- NOTE | 2023-09-19 13:42 | MHC.OFFVISCO ---
Intake Intake Visit Reasons: Anticoagulation Allergies MRI DYE Allergy (Severe, Uncoded 09/19/23 13:31) Swelling Medication List - Last Reconciled 09/19/23 by Carmen Nichols RN albuterol sulfate 90 mcg/actuation (ProAir HFA) 2 puffs PO QID blood pressure test kit-large As directed blood sugar diagnostic (FreeStyle Lite Strips) As directed blood-glucose meter (FreeStyle [place] Lite kit) As directed diclofenac sodium 1% grams topical fluticasone propionate 50 mcg/actuation 2 sprays intranasal DAILY gabapentin 300 mg PO BEDTIME guanfacine 1 mg PO DAILY lancets (TRUEplus Lancets) As directed lisinopril 10 mg PO DAILY metformin ER 750 mg PO BID mirtazapine 45 mg PO BEDTIME [id number]-dze-rxtfc-G4-dcrwdka-jleqeb 109-15-240-300 mcg (Centrum Silver Men) 1 tab PO DAILY tadalafil (Cialis) 20 mg PO DAILY PRN warfarin 7.5 mg See Protocol PO DAILY zolpidem (Ambien) 10 mg PO BEDTIME Nursing Note INR: 2.1 in therapeutic range Medications and supplements reviewed No changes in health, diet, medications, or supplements, Denies any signs and symptoms of bleeding or bruising or clotting. Bleeding, bruising, clotting discussed Nutritional guidance given REVIEW FOOD LIST WEEKLY - WATCH FOODS OVER TRY TO BALANCE BEST YOU CAN Dose: KEEP SME 7.5MG DAILY F/U INR: 2 WEEKS PER PT REQUEST AND UNTIL INR MORE STABLE Patient verbalizes understanding of instructions given Anti-Coag Initial Assessment Social Hx Patient Tobacco Use Status: Never used Tobacco alcohol intake: former Alcohol intake frequency: does not drink Coding Level of Care Code Est Patient Level 1 Diagnoses Current use of anticoagulant therapy Z79.01 Assessment & Plan Assessment & Plan (1) Current use of anticoagulant therapy: Code(s): Z79.01 - senior living (current) use of anticoagulants Category: Medical
== END 2023-09-19 13:45 | disposition home or self-care (01) ==
LOC: HO.ACS 13:01
PROVIDERS: PCP Internal Medicine; Visit Provider Internal Medicine
DX: Z79.01 Long term (current) use of anticoagulants (principal)

== ENCOUNTER → 2023-09-19 13:01 | Outpatient (BNVA) | payer MEDICAID, SELFPAY | PROVIDERS: PCP Internal Medicine; Visit Provider Internal Medicine | DX: I82.402 Acute embolism and thrombosis of unspecified deep veins of left lower extremity (principal); Z79.01 Long term (current) use of anticoagulants; Z51.81 Encounter for therapeutic drug level monitoring | CPT/HCPCS: 85610; 99211 ==

== ENCOUNTER 2023-10-19 09:49 | Outpatient (AMB) | payer MEDICAID, SELFPAY ==
[2023-10-19 10:29] LABS: Prothrombin Time Whole Bld POC 74.5 sec (11.1-13.5); ~PT, ~INR - Anti Coag Clinic 6.2 (0.9-1.1)
--- NOTE | 2023-10-19 10:33 | MHC.OFFVISCO ---
Intake Intake Visit Reasons: Anticoagulation Allergies MRI DYE Allergy (Severe, Uncoded 10/19/23 10:22) Swelling Medication List - Last Reconciled 10/19/23 by Carmen Nichols RN albuterol sulfate 90 mcg/actuation (ProAir HFA) 2 puffs PO QID blood pressure test kit-large As directed blood sugar diagnostic (FreeStyle Lite Strips) As directed blood-glucose meter (FreeStyle [place] Lite kit) As directed diclofenac sodium 1% grams topical fluticasone propionate 50 mcg/actuation 2 sprays intranasal DAILY gabapentin 300 mg PO BEDTIME guanfacine 1 mg PO DAILY lancets (TRUEplus Lancets) As directed lisinopril 10 mg PO DAILY metformin ER 750 mg PO BID mirtazapine 45 mg PO BEDTIME dc-zxi-iqynp-J2-hjytnme-aaopko 285-26-557-300 mcg (Centrum Silver Men) 1 tab PO DAILY tadalafil (Cialis) 20 mg PO DAILY PRN warfarin 7.5 mg See Protocol PO DAILY zolpidem (Ambien) 10 mg PO BEDTIME Nursing Note INR 6.2 out of therapeutic range Medications and supplements reviewed Patient status: HAD FLU TOOK COLD MEDICATION TYLENOL AND GINGERALE Medications or supplements: NO OTHER CHANGES Diet: WAS POOR LAST WEEK BETTER NOW HAD GREENS YESTERDAY Denies any signs and symptoms of bleeding or clotting or unusual bruising Bleeding, bruising, clotting discussed T0 G0 T0 ER WITH ANY INJURY, BUMP TO HEAD OR ANY UNUSAL BLEEDING OR BRUISING Nutritional guidance given: EAT A SERVING OF GREENS TODAY / AVOID FOODS THAT RAISE IT Dose: HOLD X 2 DAYS THEN 7.5MG SAT SUN RECHECK Monday10/23/23 F/U INR Date : 10/23/23?? Patient verbalizing understanding of instructions given. CALL TO PCP AT TIME OF VISIT SPOKE WITH NURSE GARZA TO CONVEY MSG TO PCP AND REQUEST FOR A DOAC, METER DISCOURAGED DUE TO HX OF NON- COMPLIANCE Anti-Coag Initial Assessment Social Hx Patient Tobacco Use Status: Never used Tobacco alcohol intake: former Alcohol intake frequency: does not drink Coding Level of Care Code Est Patient Level 2 Diagnoses Current use of anticoagulant therapy Z79.01 Comment REQUIRED CALL TO NURSE TO REPORT CRITICAL INR AND DOSING AND DIET SOUP PERSON Assessment & Plan Assessment & Plan (1) Current use of anticoagulant therapy: Code(s): Z79.01 - intermediate accountant (current) use of anticoagulants Category: Medical
== END 2023-10-19 10:48 | disposition home or self-care (01) ==
LOC: HO.ACS 09:49
PROVIDERS: PCP Internal Medicine; Visit Provider Internal Medicine
DX: Z79.01 Long term (current) use of anticoagulants (principal)

== ENCOUNTER → 2023-10-19 09:49 | Outpatient (BNVA) | payer MEDICAID, SELFPAY | PROVIDERS: PCP Internal Medicine; Visit Provider Internal Medicine | DX: I82.402 Acute embolism and thrombosis of unspecified deep veins of left lower extremity (principal); Z79.01 Long term (current) use of anticoagulants; Z51.81 Encounter for therapeutic drug level monitoring | CPT/HCPCS: 85610; 99212 ==

== ENCOUNTER 2023-10-23 13:31 | Outpatient (AMB) | payer MEDICAID, SELFPAY ==
[2023-10-23 14:09] LABS: ~PT, ~INR - Anti Coag Clinic 3.5 (0.9-1.1)
--- NOTE | 2023-10-23 14:18 | MHC.OFFVISCO ---
Intake Intake Visit Reasons: Anticoagulation Allergies MRI DYE Allergy (Severe, Uncoded 10/23/23 14:04) Swelling Medication List - Last Reconciled 10/23/23 by Amanda Lester RN albuterol sulfate 90 mcg/actuation (ProAir HFA) 2 puffs PO QID blood pressure test kit-large As directed blood sugar diagnostic (FreeStyle Lite Strips) As directed blood-glucose meter (FreeStyle [place] Lite kit) As directed diclofenac sodium 1% grams topical fluticasone propionate 50 mcg/actuation 2 sprays intranasal DAILY gabapentin 300 mg PO BEDTIME guanfacine 1 mg PO DAILY lancets (TRUEplus Lancets) As directed lisinopril 10 mg PO DAILY metformin ER 750 mg PO BID mirtazapine 45 mg PO BEDTIME ij-zed-szxhu-P0-zkpxtbq-nkgrka 997-48-666-300 mcg (Centrum Silver Men) 1 tab PO DAILY tadalafil (Cialis) 20 mg PO DAILY PRN warfarin 7.5 mg See Protocol PO DAILY zolpidem (Ambien) 10 mg PO BEDTIME Nursing Note Amb to [facility] feeling better than I was a few days ago relates to having cold and GI bug, nausea, diarrhea Medications and supplements reviewed, prev INR 6.2, 2 day warfarin hold No other changes in health, medications, or supplements- sts he has really only been taking soup, gingerale, apples and had broccoli after elevated INR Denies any unusual signs and symptoms of bruising, bleeding Denies any new Chest pain, SOB, or clotting INR: 3.5 still above therapeutic range Nutritional guidance given: try to decrease gingerale and when able balance greens and reds in diet Dose: decrease dose today to 3.75mg then resume usual dosing; 7.5mg daily F/U INR: 1 week Patient verbalizes understanding of instructions given with accurate read back/ teach back of dosing Anti-Coag Initial Assessment Social Hx Patient Tobacco Use Status: Never used Tobacco alcohol intake: former Alcohol intake frequency: does not drink Questionnaires HAS-BLED Does the patient had uncontrolled Hypertension?: No Does the patient have renal disease?: No Does the patient have liver disease?: No Does the patient have a history of stroke?: No Has the patient had major bleeding or predisposition to bleeding?: No Does the patient have labile INRs?: Yes Is the patient over 65 years of age?: No Is the patient on medications that gives them a predisposition to bleeding?: Yes Does the patient use alcohol?: No HAS-BLED Score: 2 CHADSVASC Age: <65 Gender: Male Does the patient have a history of CHF?: No Does the patient have a history of Hypertension?: No Does the patient have a history of Stroke/TIA/Thromboembolism?: Yes Does the patient have a history of Vascular Disease (prior CT, PAD or aortic plaque)?: No Does the patient have a history of Diabetes?: Yes CHADS VACS Score: 3 Sloane Prediction Score Rsk VTE Active Cancer: No Previous VTE, excluding superficial vein thrombosis: Yes Reduced mobility: No Already known Thrombophilic Condition: Yes With-in last month Trauma and/or Surgery: No Elderly 70 year or older: No Heart and/or Respiratory Failure: No Acute Myocardial infarction and/or Ischemic Stroke: No Acute Infection and/or Rheumatologic Disorder: No Obesity (BMI 30 or greater): No Ongoing Hormonal Treatment: No Score: 6 Sloane Score less than 4; Low Risk of VTE Sloane Score 4 or greater; High Risk of VTE Coding Level of Care Code Est Patient Level 1 Diagnoses Current use of anticoagulant therapy Z79.01 Time Spent (min) 15 Assessment & Plan Assessment & Plan (1) Current use of anticoagulant therapy: Code(s): Z79.01 - [facility] (current) use of anticoagulants Category: Medical
== END 2023-10-23 14:26 | disposition home or self-care (01) ==
LOC: HO.ACS 13:31
PROVIDERS: PCP Internal Medicine; Visit Provider Internal Medicine
DX: Z79.01 Long term (current) use of anticoagulants (principal)

== ENCOUNTER → 2023-10-23 13:31 | Outpatient (BNVA) | payer MEDICAID, SELFPAY | PROVIDERS: PCP Internal Medicine; Visit Provider Internal Medicine | DX: I82.402 Acute embolism and thrombosis of unspecified deep veins of left lower extremity (principal); Z79.01 Long term (current) use of anticoagulants; Z51.81 Encounter for therapeutic drug level monitoring | CPT/HCPCS: 85610; 99211 ==

== ENCOUNTER 2023-10-26 11:00 | Outpatient (REF) | payer MEDICAID, SELFPAY ==
[2023-10-26 14:07] LABS: Alanine Aminotransferase 106 U/L (0-40); Albumin Level 4.4 g/dL (3.5-5.0); Alkaline Phosphatase 49 U/L (39-117); Aspartate Amino Transferase 96 U/L (5-37); Bilirubin Direct 0.2 mg/dL (0.0-0.5); Bilirubin Total 0.6 mg/dL (0.0-1.0); Total Protein 7.4 g/dL (6.5-8.0)
== END 2023-10-26 11:01 | disposition home or self-care (01) ==
LOC: HO.HHCL 11:00
PROVIDERS: Visit Provider Internal Medicine
DX: R74.8 Abnormal levels of other serum enzymes (principal)
CPT/HCPCS: 36415; 80076

== ENCOUNTER 2023-10-31 11:20 | Outpatient (AMB) | payer MEDICAID, SELFPAY ==
[2023-10-31 11:32] LABS: Prothrombin Time Whole Bld POC 77.9 sec (11.1-13.5); ~PT, ~INR - Anti Coag Clinic 6.5 (0.9-1.1)
--- NOTE | 2023-10-31 11:40 | MHC.OFFVISCO ---
Intake Intake Visit Reasons: Anticoagulation Allergies MRI DYE Allergy (Severe, Uncoded 10/31/23 11:23) Swelling Medication List - Last Reconciled 10/31/23 by Amanda Lester RN albuterol sulfate 90 mcg/actuation (ProAir HFA) 2 puffs PO QID blood pressure test kit-large As directed blood sugar diagnostic (FreeStyle Lite Strips) As directed blood-glucose meter (FreeStyle [place] Lite kit) As directed diclofenac sodium 1% grams topical fluticasone propionate 50 mcg/actuation 2 sprays intranasal DAILY gabapentin 300 mg PO BEDTIME guanfacine 1 mg PO DAILY lancets (TRUEplus Lancets) As directed lisinopril 10 mg PO DAILY metformin ER 750 mg PO BID mirtazapine 45 mg PO BEDTIME [id number] 670-04-549-300 mcg (Centrum Silver Men) 1 tab PO DAILY tadalafil (Cialis) 20 mg PO DAILY PRN warfarin 7.5 mg See Protocol PO DAILY zolpidem (Ambien) 10 mg PO BEDTIME Nursing Note Amb to ACS feeling well Medications and supplements reviewed No changes in health, diet, medications, or supplements Denies any unusual signs and symptoms of bruising, bleeding Denies any new Chest pain, SOB, or clotting INR: 6.5 critical high, REFUSED LAB DRAW FOR CORRELATION, denies ETOH, denies extra warfarin although he does not use a pill box, sts he lines up his morning meds and takes them, pt did not take his warfarin today as he has been instructed to take it after ACS visit Nutritional guidance given:pt sts he had brocolli last night but continued on lots of gingerale, and grapes was instructed last visit regarding INR raising effect of gingerale and grapes instructed to have dark leafy greens today and tomorrow, no gingerale or grapes Dose: no warfarin today, tomorrow or before visit on , pt instructed to bring his warfarin to clinic on ; F/U INR:11/02 instructed regarding risk of bleeding and to go to ED if any falls, especially if hits head but he is at risk for bleeding, pt sts I could bleed out instructed to be careful due to bleed risk Patient verbalizes understanding of instructions given with accurate read back/ teach back of dosing TC to [facility] critical results line and message left regarding above TC back from Rossana OLIVA verify above information and will forward to Dr Pearce Anti-Coag Initial Assessment Social Hx Patient Tobacco Use Status: Never used Tobacco alcohol intake: former Alcohol intake frequency: does not drink Coding Level of Care Code Est Patient Level 1 Diagnoses Current use of anticoagulant therapy Z79.01 Time Spent (min) 15 Assessment & Plan Assessment & Plan (1) Current use of anticoagulant therapy: Code(s): Z79.01 - snf (current) use of anticoagulants Category: Medical
== END 2023-10-31 11:57 | disposition home or self-care (01) ==
LOC: HO.ACS 11:20
PROVIDERS: PCP Internal Medicine; Visit Provider Internal Medicine
DX: Z79.01 Long term (current) use of anticoagulants (principal)

== ENCOUNTER → 2023-10-31 11:20 | Outpatient (BNVA) | payer MEDICAID, SELFPAY | PROVIDERS: PCP Internal Medicine; Visit Provider Internal Medicine | DX: I82.402 Acute embolism and thrombosis of unspecified deep veins of left lower extremity (principal); Z51.81 Encounter for therapeutic drug level monitoring; Z79.01 Long term (current) use of anticoagulants | CPT/HCPCS: 85610; 99211 ==

== ENCOUNTER 2023-11-09 13:54 | Outpatient (AMB) | payer MEDICAID, SELFPAY ==
--- NOTE | 2023-11-09 14:10 | MHC.OFFVISCO ---
Intake Intake Visit Reasons: Anticoagulation Allergies MRI DYE Allergy (Severe, Uncoded 11/09/23 14:04) Swelling Medication List - Last Reconciled 11/09/23 by Carmen Nichols RN albuterol sulfate 90 mcg/actuation (ProAir HFA) 2 puffs PO QID blood pressure test kit-large As directed blood sugar diagnostic (FreeStyle Lite Strips) As directed blood-glucose meter (FreeStyle [place] Lite kit) As directed cetirizine 10 mg PO QAM diclofenac sodium 1% grams topical fluticasone propionate 50 mcg/actuation 2 sprays intranasal DAILY gabapentin 300 mg PO BEDTIME guanfacine 1 mg PO DAILY lancets (TRUEplus Lancets) As directed lisinopril 10 mg PO DAILY metformin ER 750 mg PO BID mirtazapine 45 mg PO BEDTIME [id number] mcg (Centrum Silver Men) 1 tab PO DAILY tadalafil (Cialis) 20 mg PO DAILY PRN warfarin 7.5 mg See Protocol PO DAILY zolpidem (Ambien) 10 mg PO BEDTIME Nursing Note INR: 1.3 OUT OF therapeutic range Medications and supplements reviewed t/c to [facility] spoke with Rossana who will convey pt INR and request for Eliqui RX 1420 Nurse Oliva returned call while patient present here in the clinic- she stated MD has orded the Eliquis for the pt and will be ready for chart picker today Eliquis education provided and Education handouts given from EMR and company brochure regarding DVT and PE and how to take Eliquis discused thoroughly, Risk of bleeding also discussed and enc to keep diet healthy and to refrain from over indulging in food or beverages that could put him at risk for bleeding ETOH to still monitor for any s/sx of bleeding bruising or clotting Denies any signs and symptoms of bleeding or bruising or clotting. Bleeding, bruising, clotting discussed Nutritional guidance given Dose: stop warfarin today and start eliquis today , if for some reason eliquis is not available take a warfarin and start eliquis tomorrow Anti-Coag Initial Assessment Social Hx Patient Tobacco Use Status: Never used Tobacco alcohol intake: former Alcohol intake frequency: does not drink Coding Level of Care Code Est Patient Level 1 Diagnoses Current use of anticoagulant therapy Z79.01 Results AMB INR Fingerstick AMB INR Fingerstick 1.3 Last Edit by Carmen Nichols RN on 11/09/23 14:29 manual entry no interfacing - failed Assessment & Plan Assessment & Plan (1) Current use of anticoagulant therapy: Code(s): Z79.01 - long-term (current) use of anticoagulants Category: Medical
== END 2023-11-09 14:46 | disposition home or self-care (01) ==
LOC: HO.ACS 13:54
PROVIDERS: PCP Internal Medicine; Visit Provider Internal Medicine
DX: Z79.01 Long term (current) use of anticoagulants (principal)

== ENCOUNTER → 2023-11-09 13:54 | Outpatient (BNVA) | payer MEDICAID, SELFPAY | PROVIDERS: PCP Internal Medicine; Visit Provider Internal Medicine | DX: I82.402 Acute embolism and thrombosis of unspecified deep veins of left lower extremity (principal); Z79.01 Long term (current) use of anticoagulants; Z51.81 Encounter for therapeutic drug level monitoring | CPT/HCPCS: 85610; 99211 ==

== ENCOUNTER 2023-11-13 08:01 | Outpatient (AMB) | payer MEDICAID, SELFPAY ==
--- NOTE | 2023-11-13 08:29 | A.OFFVIS_ITS ---
Intake Intake Visit Reasons: erectile disfunction Intake Note: New Patient presents for initial visit for Erectile Dysfunction Urology Medications: Cialis Blood Thinner: none Diabetic: yes Formstone Fitter Required: No Accompanied by: Self / Same As Patient Allergies MRI DYE Allergy (Severe, Uncoded 11/13/23 20:01) Swelling Medication List - Last Reconciled 11/13/23 by PATRICE Francis albuterol sulfate 90 mcg/actuation (ProAir HFA) 2 puffs PO QID blood pressure test kit-large As directed blood sugar diagnostic (FreeStyle Lite Strips) As directed blood-glucose meter (FreeStyle [place] Lite kit) As directed cetirizine 10 mg PO QAM diclofenac sodium 1% grams topical fluticasone propionate 50 mcg/actuation 2 sprays intranasal DAILY gabapentin 300 mg PO BEDTIME guanfacine 1 mg PO DAILY lancets (TRUEplus Lancets) As directed lisinopril 10 mg PO DAILY metformin ER 750 mg PO BID mirtazapine 45 mg PO BEDTIME [id number]-eyyldh 175-13-767-300 mcg (Centrum Silver Men) 1 tab PO DAILY tadalafil (Cialis) 5 mg PO DAILY 90 days tadalafil (Cialis) 20 mg PO DAILY PRN 90 days warfarin 7.5 mg See Protocol PO DAILY zolpidem (Ambien) 10 mg PO BEDTIME HPI HPI Comments History of Present Illness Details Fitz is a very pleasant 63-year-old Citizen Of [place] male patient of Dr. Mars. He has a PMH of costochondritis, hypertension, ETOH abuse, diabetes, and asthma. He presents to the office today as a new patient for erectile dysfunction. In discussion with the patient today he reports noting ED symptoms have been present for quite some time. He reports noting ED worsened when he got diagnosed with diabetes last year. He does report sexual desire at times. He reports trialing Viagra with no improvement. He discusses starting Hellier 2 months ago 20mg PRN and feels this is helping him. Discussed at length potential causes for erectile dysfunction. When asked he does reports symptoms of sleep apnea. He reports fatigue and snoring. He otherwise denies any bothersome urinary issues or concerns. When asked he denies urinary urgency, urinary frequency, incontinence, nocturia, hematuria, dysuria, foul smelling urine, changes to urinary stream, flank pain, fever, and or chills. He is happy with his current voiding parameters. In office urinalysis results reviewed with the patient today. [facility] Medical History Costochondritis (Unknown) HTN (hypertension) Thrombosis ETOH abuse Diabetes Asthma Surgical History No pertinent past surgical history Social History Household Members: Friend(s) Housing: House Alcohol intake: former Patient Tobacco Use Status: Never used Tobacco service: No Current occupational status: unemployed Review of Systems Const Reports as per HPI Eyes Reports no additional complaints ENT Reports no additional complaints Card Reports no additional complaints Resp Reports as per HPI GI Reports as per HPI Reports as per HPI Musc Reports no additional complaints Neuro Reports as per HPI Psych Reports no additional complaints Endo Reports as per HPI Physical Exam Const General: cooperative, healthy appearing, comfortable, no acute distress, well developed, alert and awake Nutritional Appearance: overweight Orientation/consciousness: patient oriented x3 Limitations: no limitations HEENT Head: Yes normal to inspection, Yes normocephalic and Yes atraumatic Ears: hearing grossly normal bilaterally Eyes General: appearance normal, both eyes and all related structures Neck Neck: Yes normal visual inspection and Yes trachea midline Chest Chest palpation & inspection: normal inspection of the chest Resp Effort & Inspection: normal respiratory effort and able to speak in complete sentences Cardio Rate: regular rate GI Inspection: Yes normal to inspection General: Yes no CVA tenderness Back/Spine/Pelvis Back: no CVA tenderness Skin General skin exam: no rashes or lesions noted Neuro General: patient oriented x3 Extrem General: Yes normal to inspection Psych Appearance: grossly normal and well kempt Mental Status: mental status grossly normal Speech and movement: Normal speech and movement present and Clear speech present Affect: normal affect Attitude: cooperative Thought process: Normal thought process present Thought content: Normal thought content present Insight: Fair insight present (Psych) Judgement: Fair judgement present (Psych) Results AMB Urinalysis, Automated UA Leukoctes 0 Oren/uL Last Edit by Xiomy Jerez on 11/13/23 09:15 UA Nitrite Negative Last Edit by Xiomy Jerez on 11/13/23 09:15 UA Urobilinogen 0.2 mg/dL Last Edit by Xiomy Jerez on 11/13/23 09:15 UA Protein 15 mg/dL Last Edit by Xiomy Jerez on 11/13/23 09:15 UA pH 5.5 Last Edit by Xiomy Jerez on 11/13/23 09:15 UA Blood 0 Danilo/uL Last Edit by Xiomy Jerez on 11/13/23 09:15 UA Specific Melba 1.025 Last Edit by Xiomy Jerez on 11/13/23 09:15 UA Ketone Negative Last Edit by Xiomy Jerez on 11/13/23 09:15 UA Bilirubin 1 mg/dL Last Edit by Xiomy Jerez on 11/13/23 09:15 UA Glucose 0 mg/dL Last Edit by Xiomy Jerze on 11/13/23 09:15 Results Reviewed Results Reviewed: Laboratory Last Values Urine pH (Auto) 5.5 11/13/23 08:33 Specific Melba (Auto) 1.025 11/13/23 08:33 Urine Protein (Auto) 15 mg/dL 11/13/23 08:33 Glucose (UA)(Auto) 0 mg/dL 11/13/23 08:33 Urine Ketones (Auto) Negative 11/13/23 08:33 Urine Blood (Auto) 0 Danilo/uL 11/13/23 08:33 Urine Nitrite (Auto) Negative 11/13/23 08:33 Urine Bilirubin (Auto) 1 mg/dL 11/13/23 08:33 Urine Urobilinogen (Auto) 0.2 mg/dL 11/13/23 08:33 Leukocyte Esterase (Auto) 0 Oren/uL 11/13/23 08:33 Assessment & Plan Assessment & Plan (1) Low libido: Code(s): R68.82 - Decreased libido (2) Erectile dysfunction associated with type 2 diabetes mellitus: Code(s): E11.69 - Type 2 diabetes mellitus with other specified complication; N52.1 - Erectile dysfunction due to diseases classified elsewhere Plan In office urinalysis results reviewed with the patient today. Discussed at length potential causes for erectile dysfunction patient is experiencing. Discussed at length lifestyle modifications to assist with ED as well as overall health and well-being. Will obtain PSA and testosterone for further assessment evaluation. Start 5 mg of Cialis daily. Refill provided on p.r.n. Cialis. Will refer for sleep study evaluation. Patient otherwise denies any bothersome urinary issues. He reports be happy with current voiding parameters. Follow-up in 3 months with labs to be completed prior; or sooner with any issues, concerns, and or questions. Orders: Orders RT home sleep study Today E11.69 - Type 2 diabetes mellitus with other specified complication, N52.1 - Erectile dysfunction due to diseases classified elsewhere, R06.83 - Snoring, R53.83 - Other fatigue, R68.82 - Decreased libido Testosterone, Free/Total Today E11.69 - Type 2 diabetes mellitus with other specified complication, N52.1 - Erectile dysfunction due to diseases classified elsewhere, R68.82 - Decreased libido AMB Urinalysis Automated Today Z13.9 - Encounter for screening, unspecified Prostate Specific Antigen 6 Months E11.69 - Type 2 diabetes mellitus with other specified complication, N52.1 - Erectile dysfunction due to diseases classified elsewhere, R68.82 - Decreased libido Medications: New tadalafil (Cialis) [id number] [facility] [id number] Member [id number] 5 mg PO DAILY 90 days 90 tabs 0RF Changed From tadalafil (Cialis) 20 mg PO DAILY PRN To tadalafil (Cialis) [id number] [facility] [id number] Member [id number] 20 mg PO DAILY 90 days PRN 60 tabs 3RF sexual activity Patient Instructions: The patient had an opportunity to ask questions regarding the treatment plan. All questions were answered. Physical exam, labs, and imaging were discussed and reviewed in detail. As well as risks, benefits, and discussion of treatment choices. No major barriers to understanding were identified. The patient expressed understanding and agreement with the above treatment plan. The patient was made aware they should contact our office by phone for worsening of their current condition, the appearance of new symptoms, or with any questions or concerns. Compliance is encouraged with any medications and follow up testing that is ordered. It is a privilege to be allowed the opportunity to participate in? your urological care.? Again, if you have any questions or concerns If you have any questions or concerns please do not hesitate to contact me. The office is [phone]. This note is constructed using voice recognition software. While every effort has been made to ensure accuracy coil spring assembler errors may have been included. Yours sincerely, BHAVANA Francis-FLORENCIO Coding Level of Care Code New Pt Level 4 (31072) Diagnoses Low libido R68.82 Erectile dysfunction associated with type 2 diabetes mellitus E11.69; N52.1
== END 2023-11-13 09:32 | disposition home or self-care (01) ==
PROVIDERS: PCP Internal Medicine; Visit Provider Nurse Practitioner Family
DX: R68.82 Decreased libido (principal); E11.69 Type 2 diabetes mellitus with other specified complication; N52.1 Erectile dysfunction due to diseases classified elsewhere
CPT/HCPCS: 99204

== ENCOUNTER → 2023-11-13 08:01 | Outpatient (BNVA) | payer MEDICAID, SELFPAY | PROVIDERS: PCP Internal Medicine; Visit Provider Nurse Practitioner Family | DX: R68.82 Decreased libido (principal); E11.69 Type 2 diabetes mellitus with other specified complication; N52.1 Erectile dysfunction due to diseases classified elsewhere | CPT/HCPCS: 81003; 99212 ==

== ENCOUNTER 2023-12-13 09:11 | Outpatient (REF) | payer MEDICAID, SELFPAY ==
--- NOTE | ~2023-12-13 | US_ITS ---
EXAMINATION: US ABDOMEN COMPLETE CLINICAL INFORMATION: Elevated liver function tests. COMPARISON: None available. TECHNIQUE: Real-time imaging of the abdominal viscera. FINDINGS: PANCREAS: Normal. ABDOMINAL AORTA: The proximal, mid, and distal segments are normal in caliber. INFERIOR VENA CAVA: Visualized portions are normal. LIVER: The liver is normal in size. The liver contour is normal. There is diffuse increased liver parenchymal echogenicity. Within the left hepatic lobe, a 9 mm benign, simple cyst is seen, for which no imaging follow-up is recommended. There is no intrahepatic biliary duct dilatation seen. GALLBLADDER: Normal. The gallbladder is physiologically distended without evidence of stones, sludge, polyps, wall thickening or pericholecystic fluid. COMMON BILE DUCT: Normal in caliber measuring 0.4 cm in diameter. RIGHT KIDNEY: Normal. No hydronephrosis. No renal calculi or focal parenchymal lesions. The kidney measures 10.8 cm in maximum dimension. LEFT KIDNEY: Normal. No hydronephrosis. No renal calculi or focal parenchymal lesions. The kidney measures 12.2 cm in maximum dimension. SPLEEN: Normal. The spleen measures 10.0 cm in maximum dimension. FREE FLUID: None. US/US abdomen complete IMPRESSION: There is generalized increase in hepatic echotexture, consistent with fatty infiltration or hepatocellular disease. Please correlate clinically. No focal hepatic mass or intrahepatic biliary dilatation is seen.
== END 2023-12-13 09:12 | disposition home or self-care (01) ==
LOC: HO.US 09:11
PROVIDERS: PCP Internal Medicine; Visit Provider Internal Medicine
DX: R74.8 Abnormal levels of other serum enzymes (principal); F10.21 Alcohol dependence, in remission
CPT/HCPCS: 76700

== ENCOUNTER → 2023-12-21 12:14 | Outpatient (REF) | payer MEDICAID, SELFPAY | LOC: HO.SL 12:14 | PROVIDERS: PCP Internal Medicine; Visit Provider Nurse Practitioner Family | DX: Z13.89 Encounter for screening for other disorder (principal) ==

== ENCOUNTER 2024-02-12 10:20 | Outpatient (REF) | payer MEDICAID, SELFPAY ==
[2024-02-12 13:52] LABS: Prostate Specific Antigen 2.99 ng/mL (<0.05-4.0)
[2024-02-16 15:08] LABS: Testosterone, Free 72.5 pg/mL (35.0-155.0); Testosterone, Total 537 ng/dL (250-1100)
== END 2024-02-12 10:21 | disposition home or self-care (01) ==
LOC: HO.10HDL 10:20
PROVIDERS: Visit Provider Nurse Practitioner Family
DX: R68.82 Decreased libido (principal); E11.69 Type 2 diabetes mellitus with other specified complication; N52.1 Erectile dysfunction due to diseases classified elsewhere
CPT/HCPCS: 36415; 84153; 84402; 84403

== ENCOUNTER 2024-03-18 08:30 | Outpatient (AMB) | payer MEDICAID, SELFPAY ==
--- NOTE | 2024-03-18 08:32 | MHC.OFFVIS ---
Intake Visit Reasons: follow up/PSA/Testo(set) Intake Note: Patient presents for follow up visit for Erectile Dysfunction and lab results PSA: 2.99 Testosterone: 537; Free Testosterone: 72.5 Urology Medications: Cialis Blood Thinner: Eliquis Diabetic: yes Coverage Specialist Required: No Accompanied by: Self / Same As Patient Allergies MRI DYE Allergy (Severe, Uncoded 03/18/24 09:34) Swelling Medication List - Last Reconciled 03/18/24 by BHAVANA Francis- albuterol sulfate 90 mcg/actuation (ProAir HFA) 2 puffs PO QID apixaban (Eliquis) 5 mg PO BID blood pressure test kit-large As directed blood sugar diagnostic (FreeStyle Lite Strips) As directed blood-glucose meter (FreeStyle [place] Lite kit) As directed cetirizine 10 mg PO QAM diclofenac sodium 1% grams topical fluticasone propionate 50 mcg/actuation 2 sprays intranasal DAILY gabapentin 300 mg PO BEDTIME guanfacine 1 mg PO DAILY lancets (TRUEplus Lancets) As directed lisinopril 10 mg PO DAILY metformin ER 750 mg PO BID mirtazapine 45 mg PO BEDTIME [id number] 896-53-122-300 mcg (Centrum Silver Men) 1 tab PO DAILY tadalafil (Cialis) 5 mg PO DAILY 90 days tadalafil (Cialis) 20 mg PO DAILY PRN 90 days zolpidem (Ambien) 10 mg PO BEDTIME HPI Comments Details: Fitz is a very pleasant 64-year-old [place]ian male patient of Dr. Mars. He has a PMH of costochondritis, hypertension, ETOH abuse, diabetes, and asthma. He presents to the office today for follow-up. Of note, patient was seen approximately 4 months ago as a new patient for erectile dysfunction at which time testosterone and PSA labs were ordered for further assessment evaluation. These results reviewed with the patient today PSA: 02/27 3.0 Testosterone: 537 He was also started on low-dose Cialis 5 mg daily with p.r.n. dosing 1 hour prior to sexual activity. In discussion with the patient today he reports he was able to obtain and maintain his erection however discusses it was not consistent as there were times he was taking medication 1 hour prior to sexual activity and was still experiencing erectile dysfunction. Discussed penile injection therapy verses continuation of oral medication. He currently would like to continue with oral medication as he did have some improvement. He otherwise denies any bothersome urinary issues or concerns. He denies urinary urgency, urinary frequency, incontinence, nocturia, hematuria, dysuria, foul smelling urine, changes to urinary stream, flank pain, fever, and or chills. He is happy with his current voiding parameters. [facility] Medical History Costochondritis (Unknown) HTN (hypertension) Thrombosis ETOH abuse Diabetes Asthma Surgical History No pertinent past surgical history Social History Household Members: Friend(s) Housing: House Alcohol intake: former Patient Tobacco Use Status: Never used Tobacco service: No Current occupational status: unemployed Review of Systems Const Reports as per HPI Eyes Reports no additional complaints ENT Reports no additional complaints Card Reports no additional complaints Resp Reports as per HPI GI Reports as per HPI Reports as per HPI Musc Reports no additional complaints Neuro Reports as per HPI Psych Reports no additional complaints Endo Reports as per HPI Physical Exam Const General: cooperative, healthy appearing, comfortable, no acute distress, well developed, alert and awake Nutritional Appearance: overweight Orientation/consciousness: patient oriented x3 Limitations: no limitations HEENT Head: Yes normal to inspection, Yes normocephalic and Yes atraumatic Ears: hearing grossly normal bilaterally Eyes General: appearance normal, both eyes and all related structures Neck Neck: Yes normal visual inspection and Yes trachea midline Chest Chest palpation & inspection: normal inspection of the chest Resp Effort & Inspection: normal respiratory effort and able to speak in complete sentences Cardio Rate: regular rate GI Inspection: Yes normal to inspection General: Yes no CVA tenderness Back/Spine/Pelvis Back: no CVA tenderness Skin General skin exam: no rashes or lesions noted Neuro General: patient oriented x3 Extrem General: Yes normal to inspection Psych Appearance: grossly normal and well kempt Mental Status: mental status grossly normal Speech and movement: Normal speech and movement present and Clear speech present Affect: normal affect Attitude: cooperative Thought process: Normal thought process present Thought content: Normal thought content present Insight: Fair insight present (Psych) Judgement: Fair judgement present (Psych) Assessment & Plan Assessment & Plan (1) Low libido: Code(s): R68.82 - Decreased libido Category: Medical (2) Erectile dysfunction associated with type 2 diabetes mellitus: Code(s): E11.69 - Type 2 diabetes mellitus with other specified complication; N52.1 - Erectile dysfunction due to diseases classified elsewhere Category: Medical Plan Recent lab results reviewed with the patient today; as noted and trended above. Will continue with daily dosing of tadalafil with on demand dosing; refills provided Discussed further treatment options of erectile dysfunction; will continue with p.o. medications at this time. Discussed at length potential causes for erectile dysfunction patient is experiencing. Discussed at length lifestyle modifications to assist with ED as well as overall health and well-being. Referred for sleep study evaluation; information provided to call for appointment. Patient otherwise denies any bothersome urinary issues. He reports be happy with current voiding parameters. Will obtain redraw of PSA in 4 months. Follow-up in 4 months with lab to be completed prior; or sooner with any issues, concerns, and or questions. Orders: Orders AMB Urinalysis Automated Today Z13.9 - Encounter for screening, unspecified Prostate Specific Antigen 4 Months R97.20 - Elevated prostate specific antigen [PSA] Medications: Refilled tadalafil (Cialis) [id number] [facility] [id number] Member [id number] 5 mg PO DAILY 90 days 90 tabs 2RF Patient Instructions: The patient had an opportunity to ask questions regarding the treatment plan. All questions were answered. Physical exam, labs, and imaging were discussed and reviewed in detail. As well as risks, benefits, and discussion of treatment choices. No major barriers to understanding were identified. The patient expressed understanding and agreement with the above treatment plan. The patient was made aware they should contact our office by phone for worsening of their current condition, the appearance of new symptoms, or with any questions or concerns. Compliance is encouraged with any medications and follow up testing that is ordered. It is a privilege to be allowed the opportunity to participate in? your urological care.? Again, if you have any questions or concerns If you have any questions or concerns please do not hesitate to contact me. The office is [phone]. This note is constructed using voice recognition software. While every effort has been made to ensure accuracy ranch hand livestock errors may have been included. Yours sincerely, BHAVANA Francis-FLORENCIO Coding Level of Care Code Est Pt Level 3 (07846) Diagnoses Low libido R68.82 Erectile dysfunction associated with type 2 diabetes mellitus E11.69; N52.1
== END 2024-03-18 09:09 | disposition home or self-care (01) ==
PROVIDERS: PCP Internal Medicine; Visit Provider Nurse Practitioner Family
DX: R68.82 Decreased libido (principal); E11.69 Type 2 diabetes mellitus with other specified complication; N52.1 Erectile dysfunction due to diseases classified elsewhere
CPT/HCPCS: 99213

== ENCOUNTER → 2024-03-18 08:30 | Outpatient (BNVA) | payer MEDICAID, SELFPAY | PROVIDERS: PCP Internal Medicine; Visit Provider Nurse Practitioner Family | DX: R68.82 Decreased libido (principal); E11.69 Type 2 diabetes mellitus with other specified complication; N52.1 Erectile dysfunction due to diseases classified elsewhere | CPT/HCPCS: 99212 ==

== ENCOUNTER 2024-04-29 12:54 | Outpatient (AMB) | payer MEDICAID, SELFPAY ==
--- NOTE | 2024-04-29 13:03 | MHC.OFFVIS ---
Vital Signs 04/29/24 13:10 Height 5 ft 7 in Weight 200 lb 2.876 oz BMI 31.3 BP 140/90 H Blood Pressure Location Lt brachial Position Sitting Pulse 88 Pulse Source Pulse Oximeter Pulse Oximetry (%) 96 Oxygen Delivery Method Room Air Intake Visit Reasons: colonoscopy Intake Note: Fitz presents in office today for a scheduled colo s/p scrn CC; Pt reports that he last had a colo s/p approximately 5 years ago. Pt denies any significant sx or concerns at this time, reports normal bowel movements. Pt reports that this is strictly for recall based on PCP recommendation. Registered Nurse Practitioner Required: No Allergies Iodinated Contrast Media Adverse Reaction (Unknown, Verified 04/29/24 13:04) Unknown MRI DYE Allergy (Severe, Uncoded 03/18/24 09:34) Swelling HPI HPI colonoscopy: Details: 64 year old? male with past medical history of hypertension, diabetes, KELL, asthma ETOH use in the past is here today for pre colonoscopy screening.? Patient reports that he is currently in remission and has not drank alcohol for several months. Patient is going to AA meetings in seeing therapist regularly. Patient was sent to us by his PCP.? Last colonoscopy November of 2015 that showed 3 tubular adenomas.? Patient denies any gastrointestinal symptoms in the past or at present.? Denies any personal or family history of gastrointestinal disease, colon polyps, or CRC.? Denies history of difficulty with sedation or anesthesia in the past.? History of sleep apnea, not using CPAP machine. Patient will be sent for another test. Denies any history of cardiac, renal, pulmonary, or hepatic disease.?? No history of infectious? diseases like hepatitis A, B, C, HIV or tuberculosis.? Patient is on Eliquis for DVT prophylaxis PFSH Medical History Costochondritis (Unknown) HTN (hypertension) Thrombosis ETOH abuse Diabetes Asthma Surgical History Hx of colonoscopy (~11/2018) No pertinent past surgical history Social History Household Members: Friend(s) Housing: House Alcohol intake: former Patient Tobacco Use Status: Never used Tobacco service: No Current occupational status: unemployed Review of Systems Const Denies weight gain and Denies weight loss ENT Reports no additional complaints, Denies dysphagia and Denies odynophagia Card Reports no additional complaints Resp Reports no additional complaints GI Denies abdominal pain, Denies belching, Denies melena, Denies bloating, Denies change in bowel habits, Denies dysphagia, Denies excessive flatus, Denies dyspepsia, Denies heartburn, Denies diarrhea, Denies loose stools, Denies nausea, Denies odynophagia and Denies vomiting Reports no additional complaints Musc Reports no additional complaints Neuro Reports no additional complaints Psych Reports no additional complaints Endo Reports no additional complaints Physical Exam Vital Signs: Last Vital Signs Pulse 88 04/29/24 13:10 BP 140/90 H 04/29/24 13:10 Pulse Ox 96 04/29/24 13:10 Oxygen Delivery Method Room Air 04/29/24 13:10 BMI result Body Mass Index 31.3 Const General: healthy appearing and no acute distress Nutritional Appearance: obese Orientation/consciousness: patient oriented x3 Resp Effort & Inspection: normal respiratory effort, able to speak in complete sentences, no tracheal deviation and symmetric chest movement Auscultation: clear to auscultation bilaterally Cardio Rate: regular rate GI Inspection: Yes normal to inspection, No distended and Yes obesity Palpation (GI): Soft to palpation, not firm, nontender and No hepatosplenomegaly present Auscultation: normal bowel sounds General: Yes no CVA tenderness Back/Spine/Pelvis Back: no CVA tenderness Skin General skin exam: elasticity normal, turgor normal and dry skin Neuro General: patient oriented x3 Psych Appearance: grossly normal Mental Status: mental status grossly normal Assessment & Plan Assessment & Plan (1) Screen for colon cancer: Code(s): Z12.11 - Encounter for screening for malignant neoplasm of colon Plan Patient denies any GI, cardiac or respiratory symptoms.? Denies any issues with anesthesia in the past.? Denies any history of sleep apnea.? No history infectious diseases in the past or present.? Patient is on Eliquis for DVT prophylaxis. May stop Eliquis 48 hours before the procedure. No family or personal history of colon cancer or polyps.? Patient denies melena, hematochezia, unintentional weight loss or ribbon like stools.? Discussed at length the pre-procedure,? prep, diet & medications as well as what to expect prior, during and after the procedure.?? Stressed the importance of good bowel prep.? Recommended the use of Vaseline or Calmoseptine OTC & baby wipes with bowel movements to promote comfort.? ?Patient verbalizes understanding and agrees to plan of care.? He was given the opportunity to ask questions and all questions answered.? We will see him after the procedure.? Medications: New bisacodyl (Dulcolax (bisacodyl)) take 4 tabs at noon the day before your colonoscopy 20 mg (4 x 5 mg) PO ONCE 4 tabs 0RF 1 day Z12.11 - Encounter for screening for malignant neoplasm of colon polyethylene glycol 3350 (Miralax) As directed by gastroenterology department at [facility] 238 grams PO ONCE 238 grams 0RF Z12.11 - Encounter for screening for malignant neoplasm of colon Coding Level of Care Code New Pt Level 3 (89369) Diagnoses Screen for colon cancer Z12.11 Time Spent (min) 40 Comment 20 minutes spent with patient and additional 10 minutes spent reviewing his records
[2024-04-29 13:10] VITALS: BP 140/90; PULSE 88; O2SAT 96; BMI 31.3
== END 2024-04-29 14:11 | disposition home or self-care (01) ==
PROVIDERS: PCP Internal Medicine; Visit Provider Nurse Practitioner Family
DX: Z12.11 Encounter for screening for malignant neoplasm of colon (principal); Z01.818 Encounter for other preprocedural examination
CPT/HCPCS: 99203

== ENCOUNTER → 2024-04-29 12:54 | Outpatient (BNVA) | payer MEDICAID, SELFPAY | PROVIDERS: PCP Internal Medicine; Visit Provider Nurse Practitioner Family | DX: Z01.818 Encounter for other preprocedural examination (principal); Z86.010 Personal history of colon polyps | CPT/HCPCS: 99212 ==

== ENCOUNTER 2024-06-19 10:32 | Outpatient (REF) | payer MEDICAID, SELFPAY ==
[2024-06-19 14:09] LABS: Prostate Specific Antigen 2.74 ng/mL (<0.05-4.0)
== END 2024-06-19 10:33 | disposition home or self-care (01) ==
LOC: HO.10HDL 10:32
PROVIDERS: Visit Provider Nurse Practitioner Family
DX: Z12.5 Encounter for screening for malignant neoplasm of prostate (principal); R97.20 Elevated prostate specific antigen [PSA]
CPT/HCPCS: 36415; 84153

== ENCOUNTER 2024-07-23 10:32 | Outpatient (AMB) | payer MEDICAID, SELFPAY ==
--- NOTE | 2024-07-23 10:53 | MHC.OFFVIS ---
Intake Visit Reasons: 4m/PSA Intake Note: Patient presents for follow up visit for Erectile Dysfunction and lab results PSA:2.74 Urology Medications: Tadalafil Blood Thinner: Eliquis Diabetic: yes Supply Chain Intern Required: No Accompanied by: Self / Same As Patient Allergies Iodinated Contrast Media Adverse Reaction (Unknown, Verified 07/23/24 11:00) Unknown MRI DYE Allergy (Severe, Uncoded 07/23/24 11:00) Swelling HPI Comments Details: Fitz is a very pleasant 64-year-old [place] male patient of Dr. Mars. He has a PMH of costochondritis, hypertension, ETOH abuse, diabetes, and asthma. He presents to the office today for follow-up. In discussion with the patient today reports since his last office visit here approximately 4 months ago he has completed a detox program for his ETOH abuse. He reports to be 31 day sober today. Currently denies any bothersome urinary issues. He reports that although he had been experiencing erectile dysfunction feels this could have likely been related to his ETOH abuse as he feels this has somewhat subsided however also states he does not have a partner at this time. Recent PSA results reviewed with the patient today as noted and trended below: PSA: 02/27 3.0, 06/29 2.7 Testosterone: 537 He denies any bothersome urinary issues or concerns. He denies urinary urgency, urinary frequency, incontinence, nocturia, hematuria, dysuria, foul smelling urine, changes to urinary stream, flank pain, fever, and or chills. He is happy with his current voiding parameters. In office urinalysis results reviewed with the patient today. He otherwise offers no other issues or concerns at this time. [facility] Medical History Costochondritis (Unknown) HTN (hypertension) Thrombosis ETOH abuse Diabetes Asthma Surgical History Hx of colonoscopy (~11/2018) No pertinent past surgical history Social History Household Members: Friend(s) Housing: House Alcohol intake: former Patient Tobacco Use Status: Never used Tobacco service: No Current occupational status: unemployed Review of Systems Const Reports as per HPI Eyes Reports no additional complaints ENT Reports no additional complaints Card Reports no additional complaints Resp Reports as per [facility] GI Reports as per HPI Reports as per HPI Musc Reports no additional complaints Neuro Reports as per HPI Psych Reports no additional complaints Endo Reports as per HPI Physical Exam Const General: cooperative, healthy appearing, comfortable, no acute distress, well developed, alert and awake Nutritional Appearance: overweight Orientation/consciousness: patient oriented x3 Limitations: no limitations HEENT Head: Yes normal to inspection, Yes normocephalic and Yes atraumatic Ears: hearing grossly normal bilaterally Eyes General: appearance normal, both eyes and all related structures Neck Neck: Yes normal visual inspection and Yes trachea midline Chest Chest palpation & inspection: normal inspection of the chest Resp Effort & Inspection: normal respiratory effort and able to speak in complete sentences Cardio Rate: regular rate GI Inspection: Yes normal to inspection General: Yes no CVA tenderness Back/Spine/Pelvis Back: no CVA tenderness Skin General skin exam: no rashes or lesions noted Neuro General: patient oriented x3 Extrem General: Yes normal to inspection Psych Appearance: grossly normal and well kempt Mental Status: mental status grossly normal Speech and movement: Normal speech and movement present and Clear speech present Affect: normal affect Attitude: cooperative Thought process: Normal thought process present Thought content: Normal thought content present Insight: Fair insight present (Psych) Judgement: Fair judgement present (Psych) Results AMB Urinalysis, Automated UA Leukoctes 0 Oren/uL Last Edit by [employer] on 07/23/24 11:04 UA Nitrite Last Edit by [employer] on 07/23/24 11:04 UA Urobilinogen 0.2 mg/dL Last Edit by [employer] on 07/23/24 11:04 UA Protein 15 mg/dL Last Edit by [employer] on 07/23/24 11:04 UA pH 5.5 Last Edit by [employer] on 07/23/24 11:04 UA Blood 0 Danilo/uL Last Edit by [employer] on 07/23/24 11:04 UA Specific [place] 1.025 Last Edit by [employer] on 07/23/24 11:04 UA Ketone Last Edit by [employer] on 07/23/24 11:04 UA Bilirubin 1 mg/dL Last Edit by [employer] on 07/23/24 11:04 UA Glucose 0 mg/dL Last Edit by [employer] Jerez on 07/23/24 11:04 Results Reviewed Results Reviewed: Laboratory Last Values Urine pH (Auto) 5.5 07/23/24 11:02 Specific [place] (Auto) 1.025 07/23/24 11:02 Urine Protein (Auto) 15 mg/dL 07/23/24 11:02 Glucose (UA)(Auto) 0 mg/dL 07/23/24 11:02 Urine Blood (Auto) 0 Danilo/uL 07/23/24 11:02 Urine Bilirubin (Auto) 1 mg/dL 07/23/24 11:02 Urine Urobilinogen (Auto) 0.2 mg/dL 07/23/24 11:02 Leukocyte Esterase (Auto) 0 Oren/uL 07/23/24 11:02 Assessment & Plan Assessment & Plan (1) Low libido: Code(s): R68.82 - Decreased libido Category: Medical (2) Fatigue: Code(s): R53.83 - Other fatigue Category: Medical (3) Erectile dysfunction associated with type 2 diabetes mellitus: Code(s): E11.69 - Type 2 diabetes mellitus with other specified complication; N52.1 - Erectile dysfunction due to diseases classified elsewhere Category: Medical Plan In office urinalysis results reviewed with the patient today; as noted above. Recent PSA results reviewed with the patient today; as noted above. Patient currently denies any bothersome urinary issues or concerns. He reports be happy with current voiding parameters. Will continue with surveillance monitoring of ED given patient is not currently sexually active. Will obtain PSA in 6 months. Follow-up in 6 months with lab to be completed prior; or sooner with any issues, concerns, and or questions. Orders: Orders AMB Urinalysis Automated Today Z13.9 - Encounter for screening, unspecified Patient Instructions: The patient had an opportunity to ask questions regarding the treatment plan. All questions were answered. Physical exam, labs, and imaging were discussed and reviewed in detail. As well as risks, benefits, and discussion of treatment choices. No major barriers to understanding were identified. The patient expressed understanding and agreement with the above treatment plan. The patient was made aware they should contact our office by phone for worsening of their current condition, the appearance of new symptoms, or with any questions or concerns. Compliance is encouraged with any medications and follow up testing that is ordered. It is a privilege to be allowed the opportunity to participate in? your urological care.? Again, if you have any questions or concerns If you have any questions or concerns please do not hesitate to contact me. The office is [phone]. This note is constructed using voice recognition software. While every effort has been made to ensure accuracy pediatric nurse practitioner errors may have been included. Yours sincerely, PATRICE Francis Coding Level of Care Code Est Pt Level 3 (37449) Diagnoses Low libido R68.82 Fatigue R53.83 Erectile dysfunction associated with type 2 diabetes mellitus E11.69; N52.1
== END 2024-07-23 11:22 | disposition home or self-care (01) ==
LOC: HO.HUSH 10:32
PROVIDERS: PCP Internal Medicine; Visit Provider Nurse Practitioner Family
DX: R68.82 Decreased libido (principal); R53.83 Other fatigue; E11.69 Type 2 diabetes mellitus with other specified complication; N52.1 Erectile dysfunction due to diseases classified elsewhere; Z13.9 Encounter for screening, unspecified
CPT/HCPCS: 99213

== ENCOUNTER → 2024-07-23 10:32 | Outpatient (BNVA) | payer MEDICAID, SELFPAY | PROVIDERS: PCP Internal Medicine; Visit Provider Nurse Practitioner Family | DX: R68.82 Decreased libido (principal); R53.83 Other fatigue; E11.69 Type 2 diabetes mellitus with other specified complication; N52.1 Erectile dysfunction due to diseases classified elsewhere; Z71.2 Person consulting for explanation of examination or test findings | CPT/HCPCS: 81003; 99212 ==

== ENCOUNTER 2024-08-05 10:58 | Outpatient (REF) | payer MEDICAID, SELFPAY ==
[2024-08-05 13:10] LABS: MANUAL DIFF FLAG NO
[2024-08-05 13:29] LABS: Basophils Percent Auto 0.4 % (0-2); Eosinophils Absolute Auto 0.6 X10*3/uL (0.0-0.4); Eosinophils Percent Auto 7.2 % (0-4); Hematocrit 49.2 % (42.0-52.0); Hemoglobin 16.8 g/dl (14.0-18.0); Imm Gran Abs Auto 0.04 X10*3/uL (0.00-0.03); Imm Gran Pct Auto 0.5 % (0.0-0.4); Lymphocytes Absolute Auto 1.5 X10*3/uL (1.2-4.9); Lymphocytes Percent Auto 19.4 % (20-40); Mean Corpuscular HGB Conc 34.1 g/dl (31.0-36.0); Mean Corpuscular Hemoglobin 31.9 pg (27.0-33.0); Mean Corpuscular Volume 93.5 fL (80.0-98.0); Mean Platelet Volume 11.2 fL (9.4-12.4); Monocytes Absolute Auto 0.6 X10*3/uL (0.1-1.2); Monocytes Percent Auto 8.1 % (2-11); Neutrophils Absolute Auto 5.1 x10*3/uL (2.0-8.3); Neutrophils Percent Auto 64.4 % (45-73); Platelet Count 222 X10*3/uL (160-400); Red Blood Count 5.26 X10*6/uL (4.60-5.80); Red Cell Distribution Width 12.3 % (11.0-16.0)
[2024-08-05 13:55] LABS: Alanine Aminotransferase 36 U/L (0-40); Albumin Level 4.5 g/dL (3.5-5.0); Anion Gap 14 (12-20); Aspartate Amino Transferase 21 U/L (5-37); Bilirubin Direct 0.3 mg/dL (0.0-0.5); Bilirubin Total 0.9 mg/dL (0.0-1.0); Blood Urea Nitrogen 14 mg/dL (9-16); Calcium 11.5 mg/dL (8.4-10.2); Carbon Dioxide 27 mmol/L (22-29); Chloride 104 mmol/L (96-108); Cholesterol 214 mg/dL (<200); Estimated Glomerular Filt Rate > 60; Glucose Random 130 mg/dL (60-115); HDL Cholesterol 39 mg/dL (>40); LDL Cholesterol Calculated 153 mg/dL (<100); Potassium 4.8 mmol/L (3.3-5.1); Sodium 140 mmol/L (135-145); Total Protein 7.7 g/dL (6.5-8.0); Triglycerides 114 mg/dL (<150)
[2024-08-05 13:59] LABS: Prostate Specific Antigen 0.69 ng/mL (<0.05-4.0)
[2024-08-05 14:04] LABS: Alkaline Phosphatase 68 U/L (39-117); Vitamin D 25-OH Total 52.6 ng/mL (>30)
[2024-08-05 14:05] LABS: Creatinine Urine 125.62 mg/dL; Microalbum/Creatinine Ratio Ur 4.7 ug/mg cr (<30)
[2024-08-05 14:25] LABS: Reflex LDLD? No
[2024-08-06 08:47] LABS: HBc Num1 0.14 S/CO (0.00-0.79); HBsAGNum1 0.43 S/CO (0.00-0.99); Hepatitis A Antibody IgM 0.09 Index (0-0.79); Hepatitis B Core Antibody Nonreactive (Nonreactive); Hepatitis B Surface Antigen Negative (Negative); ~HepC Num1 0.08 S/CO (0.00-0.79); ~Hepatitis A Antibody IgM Nonreactive (Nonreactive); ~Hepatitis B Surface Antibody REACTIVE (Nonreactive); ~Hepatitis C Antibody Nonreactive (Nonreactive)
[2024-08-06 08:49] LABS: Hepatitis A Antibody IgG REACTIVE (Nonreactive); ~Hepatitis A Antibody IgG 3.65 S/CO (0.00-0.99)
[2024-08-06 08:50] LABS: HIV AB/AG Nonreactive (Nonreactive); HIV Num 1 0.03 S/CO (0.00-0.99); ~HepC Num1 0.09 S/CO (0.00-0.79); ~Hepatitis C Antibody Nonreactive (Nonreactive)
[2024-08-07 10:33] LABS: RPR Rapid Plasma Reagin NON-REACTIVE (NON-REACTIVE)
[2024-08-07 21:38] LABS: TS Negative Control Passed; TS Panel A 0; TS Panel B 0; TS Positive Control Passed; TSpotTB Negative (Negative)
== END 2024-08-05 10:59 | disposition home or self-care (01) ==
LOC: HO.HHCL 10:58
PROVIDERS: Internal Medicine; Nurse Practitioner Family; Visit Provider Emergency Medicine
DX: Z00.00 Encounter for general adult medical examination without abnormal findings (principal); F10.20 Alcohol dependence, uncomplicated; R74.8 Abnormal levels of other serum enzymes; E11.65 Type 2 diabetes mellitus with hyperglycemia; I10 Essential (primary) hypertension; E11.69 Type 2 diabetes mellitus with other specified complication; N52.1 Erectile dysfunction due to diseases classified elsewhere
CPT/HCPCS: 36415; 80048; 80061; 80076; 82043; 82306; 82570; 84153; 85025; 86481; 86592; 86704; 86706; 86708; 86709; 86803; 87340; 87389

== ENCOUNTER 2024-08-16 12:23 | Outpatient (REF) | payer MEDICAID, SELFPAY ==
[2024-08-23 10:59] LABS: FIB-ALT 32 U/L (9-46); FIB-Alpha-2-Macroglobulin 216 mg/dL (106-279); FIB-Apolipoprotein A1 126 mg/dL (94-176); FIB-GGT 41 U/L (3-70); FIB-Haptoglobin 181 mg/dL (43-212); FIB-Total Bilirubin 0.9 mg/dL (0.2-1.2); Liver Fibrosis Score 0.48; Liver Fibrosis Stage F2; Nec Inflam Act Grade A0-A1; Reference ID 5159164
== END 2024-08-16 12:24 | disposition home or self-care (01) ==
LOC: HO.HHCL 12:23
PROVIDERS: Visit Provider Emergency Medicine
DX: F10.20 Alcohol dependence, uncomplicated (principal)
CPT/HCPCS: 36415; 81596

== ENCOUNTER 2024-10-17 09:00 | Day surgery (SDC) | payer MEDICAID, SELFPAY ==
--- NOTE | 2024-10-16 09:00 | P.CONAN_ITS ---
Documented by User: Sarah Tate NP 10/16/24 09:00 HPI - Anesthesia Eval Consult details Narrative: 64yo M for Colonoscopy Eliquis for hx DVT Hx ETOH PMFSH Active Problems Active Problems: All Active Problems Low libido (Acute) Snoring (Acute) Fatigue (Acute) Erectile dysfunction associated with type 2 diabetes mellitus (Acute) Current use of anticoagulant therapy (Chronic) Past Medical History Medical History Costochondritis (Unknown) HTN (hypertension) Thrombosis ETOH abuse Diabetes Asthma Surgical History Surgical History Hx of colonoscopy (~11/2018) Social History Social History Household Members: Friend(s) Housing: House Alcohol intake: former Patient Tobacco Use Status: Never used Tobacco Use of substances other than those prescribed or required for medical reasons: No Are you DNR?: No Advance Directives: No Advance Directives Information Provided: Yes Recently lost weight without trying: No service: No Current occupational status: unemployed Meds Allergies Allergy/AdvReac Type Severity Reaction Status Date / Time Iodinated Contrast Media AdvReac Severe Swelling Verified 10/17/24 09:40 Home Medications ?Medication ?Instructions ?Recorded ?Confirmed ?Last Taken ?Type albuterol sulfate 90 mcg/actuation 2 puff inhalation QID 07/06/21 10/15/24 Unknown History aerosol inhaler (ProAir HFA) [id number] 300 mcg-K 60 1 tab PO DAILY 09/14/21 10/15/24 Unknown History mcg-lycop 600 mcg-lutein 300 mcg tablet (Centrum Silver Men) gabapentin 300 mg capsule 300 mg PO BEDTIME 08/22/22 10/15/24 Unknown History guanfacine 1 mg tablet 1 mg PO DAILY 11/23/22 10/15/24 Unknown History mirtazapine 15 mg tablet 45 mg PO BEDTIME 11/23/22 10/15/24 Unknown History fluticasone propionate 50 2 spray intranasal DAILY 05/01/23 10/15/24 Unknown History mcg/actuation nasal spray,suspension blood pressure test kit-large #1 ea 05/15/23 11/09/23 Unknown History blood sugar diagnostic (FreeStyle #10 ea 05/15/23 11/09/23 Unknown History Lite Strips) blood-glucose meter (FreeStyle #1 ea 05/15/23 11/09/23 Unknown History [place] Lite kit) lancets 33 gauge (TRUEplus Lancets) #100 ea 05/15/23 11/09/23 Unknown History lisinopril 10 mg tablet 10 mg PO DAILY 05/15/23 10/15/24 Unknown History metformin 750 mg tablet,extended 750 mg PO BID 05/15/23 10/15/24 Unknown History release 24 hr zolpidem 5 mg tablet (Ambien) 10 mg PO BEDTIME 08/15/23 10/15/24 Unknown History cetirizine 10 mg tablet 10 mg PO QAM 11/09/23 10/15/24 Unknown History apixaban 5 mg tablet (Eliquis) 5 mg PO BID 03/18/24 10/15/24 10/15/24 History Assessment and Plan Assessment Anesthesia Assessment: Chart Reviewed Documented by User: Martell Denise MD 10/17/24 11:14 [facility] Past Medical History Medical History Costochondritis (Unknown) HTN (hypertension) Thrombosis ETOH abuse Diabetes Asthma Family History Family history of problems with anesthesia: No Surgical History Surgical History Hx of colonoscopy (~11/2018) History of Problems with Anesthesia: No Social History Social History Household Members: Friend(s) Housing: House Alcohol intake: former Patient Tobacco Use Status: Never used Tobacco Use of substances other than those prescribed or required for medical reasons: No Are you DNR?: No Advance Directives: No Advance Directives Information Provided: Yes Recently lost weight without trying: No service: No Current occupational status: unemployed Meds Allergies Allergy/AdvReac Type Severity Reaction Status Date / Time Iodinated Contrast Media AdvReac Severe Swelling Verified 10/17/24 09:40 Home Medications ?Medication ?Instructions ?Recorded ?Confirmed ?Last Taken ?Type albuterol sulfate 90 mcg/actuation 2 puff inhalation QID 07/06/21 10/15/24 Unknown History aerosol inhaler (ProAir HFA) [id number] 300 mcg-K 60 1 tab PO DAILY 09/14/21 10/15/24 Unknown History mcg-lycop 600 mcg-lutein 300 mcg tablet (Centrum Silver Men) gabapentin 300 mg capsule 300 mg PO BEDTIME 08/22/22 10/15/24 Unknown History guanfacine 1 mg tablet 1 mg PO DAILY 11/23/22 10/15/24 Unknown History mirtazapine 15 mg tablet 45 mg PO BEDTIME 11/23/22 10/15/24 Unknown History fluticasone propionate 50 2 spray intranasal DAILY 05/01/23 10/15/24 Unknown History mcg/actuation nasal spray,suspension blood pressure test kit-large #1 ea 05/15/23 11/09/23 Unknown History blood sugar diagnostic (FreeStyle #10 ea 05/15/23 11/09/23 Unknown History Lite Strips) blood-glucose meter (FreeStyle #1 ea 05/15/23 11/09/23 Unknown History [place] Lite kit) lancets 33 gauge (TRUEplus Lancets) #100 ea 05/15/23 11/09/23 Unknown History lisinopril 10 mg tablet 10 mg PO DAILY 05/15/23 10/15/24 Unknown History metformin 750 mg tablet,extended 750 mg PO BID 05/15/23 10/15/24 Unknown History release 24 hr zolpidem 5 mg tablet (Ambien) 10 mg PO BEDTIME 08/15/23 10/15/24 Unknown History cetirizine 10 mg tablet 10 mg PO QAM 11/09/23 10/15/24 Unknown History apixaban 5 mg tablet (Eliquis) 5 mg PO BID 03/18/24 10/15/24 10/15/24 History Exam Airway Mallampati Class: II TM Dist: <=3cm Neck ROM: Full Loose/Missing/Broken Teeth: No Heart: ok Lungs: ok Assessment and Plan Assessment Anesthesia Assessment: Anesthesia Plan Discussed Final Anesthetic Review Family History of Problems with Anesthesia: No History of Problems with Anesthesia: No NPO: Yes ASA Class: III Final Preanesthetic Review: No Changes in Pt Med Stat, Meds/Allgs Chart Reviewed, Consent Obtained/Reviewed and Anes Risks/Benef Reviewed Patient Risk: Intermediate Procedure Risk: Low Anesthetic Plan Anesthetic Plan: MAC: and Agree w/ Assess. and Plan Disposition: Standard PACU
[2024-10-17 09:42] VITALS: BMI 30.7
[2024-10-17 09:46] VITALS: BP 132/81; PULSE 82; RESP 16; TEMP 36.4; O2SAT 95
[2024-10-17 10:22] LABS: Glucose, Whole Blood 114 mg/dL (60-115)
--- NOTE | 2024-10-17 10:48 | MHC.SHP ---
Pre-Procedural Eval Section A - 24 Hr Update-Section A only Date of Service: 10/17/24 Section B - Complete if H&P > 30 days Chief Complaint: History of polyps Details of Present Illness: Costochondritis (Unknown) HTN (hypertension) Thrombosis ETOH abuse Diabetes Asthma Surgical History Hx of colonoscopy (~11/2018) Allergies: Allergies Allergy/AdvReac Type Severity Reaction Status Date / Time Iodinated Contrast Media AdvReac Severe Swelling Verified 10/17/24 09:40 Review of Systems Review of Systems Comment: Ten point ROS negative Exam Exam Comment: Gen appear: No acute distress HEENT: no icterus Chest: No overt resp distress Abd: soft, nontender, nondistended Psych: Stable affect, answering questions appropriately Neuro: A/Ox3 noted to move all extremities spontaneously Ext: no peripheral edema Plan Diagnosis/Plan: Unchanged I have reviewed the history and physical and performed a pertinent physical examination on my patient. No changes have occurred unless specified. Time Spent With Patient Time: Total time managing care of this patient today ____ minutes.
[2024-10-17 11:38] VITALS: BP 138/69; PULSE 73; RESP 20; TEMP 36.6; O2SAT 96
--- NOTE | 2024-10-17 11:42 | P.OPN-COLO_ITS ---
Colonoscopy Operative Note Operative Note Date of Service: 10/17/24 Narrative: Procedure: Colonoscopy Indication: Personal history of polyps Endoscopist: Vanessa Ellison MD Anesthesia Provider: Dr Martell Denise Anesthesia type: MAC Instrument: Olympus [id number]-H190L Consent: Indication, risks vs benefits, and alternatives were discussed with the patient who gave written informed consent to proceed. EKG, pulse, pulse oximetry and blood pressure were monitored throughout the procedure. Please see anesthesia flowsheet. Procedure: The patient was brought to the procedure room and placed in the left lateral decubitus position. IV medications were administered by the anesthesia provider in attendance. A digital rectal exam was performed which was abnormal due to finding of hemorrhoids. A distal attachment cap was affixed to the tip of the colonoscope which was then inserted through the anus and advanced through the colon to the cecum at 80 cm,and terminal ileum. Appendiceal orifice and ileocecal valve were identified. Mucosa was carefully examined under high definition white light as the instrument was slowly withdrawn in a retrograde panoramic fashion. Retroflexion was performed in rectum. The procedure was somewhat difficult and required pressure to intubate cecum. There were no imme diate obvious complications. The quality of the prep was BBPS: 2+2+3 = adequate Withdrawal time 12 minutes. Limitations: No limitations. Findings: Mucosa: Normal to cecum and terminal ileum. Protruding lesions: * 2 sessile polyp of size 3-4 mm in ascending colon. Cold snare polypectomy was performed. The polyps were completely removed and retrieved. * 1 sessile polyp of size 7 mm in sigmoid colon. Cold snare polypectomy was performed. The polyp was completely removed and retrieved. * Large internal hemorrhoids without stigmata of recent bleeding. Impression: 1. Normal colon and terminal ileum mucosa 2. Total of 3 polyps removed 3. Internal hemorrhoids Recommendations: - Follow path results. - Repeat colonoscopy in 3 years if polyps are adenomas or sessile serrated.
[2024-10-17 11:48] VITALS: BP 138/64; PULSE 67; RESP 16; TEMP 36.8; O2SAT 96
== END 2024-10-17 12:30 | disposition home or self-care (01) ==
PROVIDERS: PCP Family Medicine; Visit Provider Internal Medicine
PROC: 0DJD8ZZ Inspection of Lower Intestinal Tract, Via Natural or Artificial Opening Endoscopic (ICD-10-PCS; CPT 45378; principal; 2024-10-17 11:20)
DX: Z12.11 Encounter for screening for malignant neoplasm of colon (principal); Z86.0101 Personal history of adenomatous and serrated colon polyps; D12.2 Benign neoplasm of ascending colon; D12.5 Benign neoplasm of sigmoid colon; K64.8 Other hemorrhoids; I10 Essential (primary) hypertension; I82.90 Acute embolism and thrombosis of unspecified vein; M94.0 Chondrocostal junction syndrome [Tietze]; J45.909 Unspecified asthma, uncomplicated; E11.9 Type 2 diabetes mellitus without complications; F10.11 Alcohol abuse, in remission; Z79.01 Long term (current) use of anticoagulants; Z79.51 Long term (current) use of inhaled steroids; Z79.84 Long term (current) use of oral hypoglycemic drugs; Z79.899 Other long term (current) drug therapy; Z91.041 Radiographic dye allergy status; Z56.0 Unemployment, unspecified
CPT/HCPCS: 45385; 82947; 88305; J2003; J2704

== ENCOUNTER → 2024-10-17 09:00 | Outpatient (BNV) | payer MEDICAID, SELFPAY | PROVIDERS: PCP Family Medicine; Visit Provider Internal Medicine | DX: Z12.11 Encounter for screening for malignant neoplasm of colon (principal); Z86.0100 Personal history of colon polyps, unspecified; D12.2 Benign neoplasm of ascending colon; D12.5 Benign neoplasm of sigmoid colon | CPT/HCPCS: 45385 ==

== ENCOUNTER 2025-01-21 13:22 | Outpatient (AMB) | payer MEDICAID, SELFPAY ==
--- NOTE | 2025-01-21 13:30 | A.OFFVIS_ITS ---
Intake Visit Reasons: 6m/PSA(set) Intake Note: Patient presents to office today for follow up/ PSA Urology Medications: Tadalafil Blood Thinner: Eliquis Allergy to Antibiotics: none Diabetic: yes Cdl Program Coordinator Required: No Accompanied by: Self / Same As Patient Allergies Iodinated Contrast Media Adverse Reaction (Severe, Verified 01/21/25 14:47) Swelling Medication List - Last Reconciled 01/21/25 by PATRICE Francis albuterol sulfate 90 mcg/actuation (ProAir HFA) 2 puffs inhalation QID apixaban (Eliquis) 5 mg PO BID blood pressure test kit-large As directed blood sugar diagnostic (FreeStyle Lite Strips) As directed blood-glucose meter (FreeStyle [place] Lite kit) As directed cetirizine 10 mg PO QAM fluticasone propionate 50 mcg/actuation 2 sprays intranasal DAILY gabapentin 300 mg PO BEDTIME guanfacine 1 mg PO DAILY lancets (TRUEplus Lancets) As directed lisinopril 10 mg PO DAILY metformin ER 750 mg PO BID mirtazapine 45 mg PO BEDTIME [id number] mcg (Centrum Silver Men) 1 tab PO DAILY tadalafil (Cialis) 20 mg PO DAILY PRN 90 days tadalafil (Cialis) 5 mg PO DAILY 90 days zolpidem (Ambien) 10 mg PO BEDTIME HPI Comments Details: Fitz is a very pleasant 64-year-old Persian male patient of Dr. Mars. He has a PMH of costochondritis, hypertension, ETOH abuse, diabetes, and asthma. He presents to the office today for follow-up of his ED. In discussion with the patient today he reports to be doing and feeling well. He discusses at length his sobriety over the last 7 months. He reports feeling p.r.n. dosing of tadalafil was helpful however feels if he does not utilize p.r.n. medication he finds it difficult to obtain a maintain his erections. He discusses continuing to work on lifestyle modifications to assist with ED. He currently denies any bothersome urinary issues. He discusses being back in relationship with his girlfriend. In office urinalysis results reviewed with the patient today. Labs are as follows: PSA: 02/27 3.0, 06/29 2.7, 07/30 0.7 Testosterone: 08/23 600, 02/27 537 He denies urinary urgency, urinary frequency, incontinence, nocturia, hematuria, dysuria, foul smelling urine, changes to urinary stream, flank pain, fever, and or chills. He otherwise offers no other issues or concerns at this time. [facility] Medical History Costochondritis (Unknown) HTN (hypertension) Thrombosis ETOH abuse Diabetes Asthma Surgical History Hx of colonoscopy (~11/2018) Social History Household Members: Friend(s) Housing: House Alcohol intake: former Patient Tobacco Use Status: Never used Tobacco service: No Current occupational status: unemployed Review of Systems Const Reports as per HPI Eyes Reports no additional complaints ENT Reports no additional complaints Card Reports no additional complaints Resp Reports as per HPI GI Reports as per HPI Reports as per HPI Musc Reports no additional complaints Neuro Reports as per HPI Psych Reports no additional complaints Endo Reports as per HPI Physical Exam Const General: cooperative, healthy appearing, comfortable, no acute distress, well developed, alert and awake Nutritional Appearance: overweight Orientation/consciousness: patient oriented x3 Limitations: no limitations HEENT Head: Yes normal to inspection, Yes normocephalic and Yes atraumatic Ears: hearing grossly normal bilaterally Eyes General: appearance normal, both eyes and all related structures Neck Neck: Yes normal visual inspection and Yes trachea midline Chest Chest palpation & inspection: normal inspection of the chest Resp Effort & Inspection: normal respiratory effort and able to speak in complete sentences Cardio Rate: regular rate GI Inspection: Yes normal to inspection General: Yes no CVA tenderness Back/Spine/Pelvis Back: no CVA tenderness Skin General skin exam: no rashes or lesions noted Neuro General: patient oriented x3 Extrem General: Yes normal to inspection Psych Appearance: grossly normal and well kempt Mental Status: mental status grossly normal Speech and movement: Normal speech and movement present and Clear speech present Affect: normal affect Attitude: cooperative Thought process: Normal thought process present Thought content: Normal thought content present Insight: Fair insight present (Psych) Judgement: Fair judgement present (Psych) Results AMB Urinalysis, Automated UA Leukoctes 0 Oren/uL Last Edit by Treasure Martini on 01/21/25 15:20 UA Nitrite Negative Last Edit by Treasure Martini on 01/21/25 15:20 UA Urobilinogen 3.5 mg/dL Last Edit by Treasure Martini on 01/21/25 15:20 UA Protein 1 mg/dL Last Edit by Treasure Martini on 01/21/25 15:20 UA pH 6.5 Last Edit by Treasure Martini on 01/21/25 15:20 UA Blood 0 Danilo/uL Last Edit by Treasure Martini on 01/21/25 15:20 UA Specific [place] 1.010 Last Edit by Treasure Martini on 01/21/25 15:20 UA Ketone Negative Last Edit by Treasure Martini on 01/21/25 15:20 UA Bilirubin 0 mg/dL Last Edit by Treasure Martini on 01/21/25 15:20 UA Glucose 0 mg/dL Last Edit by Treasure Martini on 01/21/25 15:20 Results Reviewed Results Reviewed: Laboratory Last Values Urine pH (Auto) 6.5 01/21/25 15:14 Specific [place] (Auto) 1.010 01/21/25 15:14 Urine Protein (Auto) 1 mg/dL 01/21/25 15:14 Glucose (UA)(Auto) 0 mg/dL 01/21/25 15:14 Urine Ketones (Auto) Negative 01/21/25 15:14 Urine Blood (Auto) 0 Danilo/uL 01/21/25 15:14 Urine Nitrite (Auto) Negative 01/21/25 15:14 Urine Bilirubin (Auto) 0 mg/dL 01/21/25 15:14 Urine Urobilinogen (Auto) 3.5 mg/dL 01/21/25 15:14 Leukocyte Esterase (Auto) 0 Oren/uL 01/21/25 15:14 Assessment & Plan Assessment & Plan (1) Erectile dysfunction associated with type 2 diabetes mellitus: Code(s): E11.69 - Type 2 diabetes mellitus with other specified complication; N52.1 - Erectile dysfunction due to diseases classified elsewhere Category: Medical Plan In office urinalysis results reviewed with the patient today; as noted above. We discussed at length potential causes of ED as well as further treatment opt ions and risks and benefits of these treatment options. Will continue with daily dosing of tadalafil with p.r.n. dosing on demand; refills provided. We discussed penile pump as well as penile injection therapy Patient currently denies any bothersome urinary issues. He reports be happy with current voiding parameters. Will obtain PSA as well as testosterone total and free prior to follow-up appointment. We discussed importance of lifestyle modifications to assist with ED as well as overall health and well-being. Follow-up in 3 months with labs to be completed prior; or sooner with any issues, concerns, and or questions. Orders: Orders Testosterone, Free/Total Today E11.69 - Type 2 diabetes mellitus with other specified complication, N52.1 - Erectile dysfunction due to diseases classified elsewhere Prostate Specific Antigen Today R68.82 - Decreased libido AMB Urinalysis Automated Today Z13.9 - Encounter for screening, unspecified Medications: New tadalafil (Cialis) [id number] [facility] [id number] Member [id number] 5 mg PO DAILY 90 days 90 tabs 0RF Refilled tadalafil (Cialis) [id number] [facility] [id number] Member [id number] 20 mg PO DAILY 90 days PRN 60 tabs 3RF sexual activity Patient Instructions: The patient had an opportunity to ask questions regarding the treatment plan. All questions were answered. Physical exam, labs, and imaging were discussed and reviewed in detail. As well as risks, benefits, and discussion of treatment choices. No major barriers to understanding were identified. The patient expressed understanding and agreement with the above treatment plan. The patient was made aware they should contact our office by phone for worsening of their current condition, the appearance of new symptoms, or with any questions or concerns. Compliance is encouraged with any medications and follow up testing that is ordered. It is a privilege to be allowed the opportunity to participate in? your urological care.? Again, if you have any questions or concerns If you have any questions or concerns please do not hesitate to contact me. The office is [phone]. This note is constructed using voice recognition software. While every effort has been made to ensure accuracy business architect errors may have been included. Yours sincerely, PATRICE Francis Coding Level of Care Code Est Pt Level 3 (29685) Complex EM visit Add On G2211 Diagnoses Erectile dysfunction associated with type 2 diabetes mellitus E11.69; N52.1
--- OUTSIDE RECORDS SUMMARY | 2025-01-21 15:44 | XMS_ITS | Encounter Summary ---
Author Organization [employer] Address [address] [place] [address] [address] [place] [address] Care Team Providers Care Implementation Services Analyst Name Role Phone Magalie Mars MD Primary Care Provider + Encounter Details Date Type Department Care Team (Late st Contact Info) Description 03/04/2023 Orders Only [facility] MEDICINE [address] [place], [place] [phone] Magalie Mars MD [address] [place] [address] Type 2 diabetes mellitus with hyperglycemia, without long-term current use of insulin ([facility]) Social History Tobacco Use Types Packs/Day Years Used Date Smoking Tobacco: Never Smokeless Tobacco: Never Alcohol Use Standard Drinks/Week Comments Not Currently 0 (1 standard drink = 0.6 oz pur e alcohol) PHQ-2 Answer Date Recorded Patient Health Questionnaire-2 Score 2 11/16/2022 Depression Answer Date Recorded Patient Health Questionnaire-2 Score 2 11/16/2022 Sex and Gender Information Value Date Recorded Sex Assigned at Male 09/05/2022 10:21 AM EDT Legal Sex Male 10:21 AM EDT Gender Identity Choose not to disclose 10:21 AM EDT Sexual Orientation Choose not to disclose 2021 10:21 AM EDT COVID-19 Exposure Response Date Recorded In the last 10 days, have yo u been in contact with someone who was confirmed or suspected to have Coronavirus/COVID-19? No / Unsure 02/24/2023 9:59 AM EDT documented as of this encounter Plan of Treatment Upcoming Encounters Date Type Department Care Team (Late st Contact Info) Description 01/24/2025 2:00 PM EDT Clinical Support [facility] DIABETES/NUTRITION [address] [place] [address] [place] [address] 02/14/2025 11:00 AM EDT Office Visit [facility] [address] [place] [address] Taiwo Hicks MD [address] [place] [address] 02/26/2025 10:00 AM EDT Office Visit [facility] [address] [place] [address] Magalie Mars MD [address] [place] [address] 03/06/2025 3:30 PM EDT Office Visit [facility] OPTOMETRY [address] [place] [address] Skye Dvaid, OD [address] [place] [address] documented as of this encounter Visit Diagnoses Diagnosis Type 2 diabetes mellitus with hyperglycemia, without long-term current use of insulin ([facility]) documented in this encounter Care Teams Implementation Services Analyst Relationship Specialty Start Date End Date Magalie Mars MD [address] [place] [address] PCP - General Family Medicine 01/22/21 documented as of this encounter
--- OUTSIDE RECORDS SUMMARY | 2025-01-21 15:44 | XMS_ITS | Encounter Summary ---
Author Organization [employer] Address [address] [place] [address] [address] [place] [address] Care Team Providers Care Mattress Weaver Name Role Phone Magalie Mars MD Primary Care Provider + Encounter Details Date Type Department Care Team (Late st Contact Info) Description 04/21/2023 Abstract [facility] MEDICINE [address] [place], [place] [phone] Magalie Mars MD [address] [place], [place] [phone] Social History Tobacco Use Types Packs/Day Years [...] not to disclose 2021 10:21 AM EDT documented as of this encounter Plan of Treatment Upcoming Encounters Date Type Department Care Team (Late st Contact Info) Description 01/24/2025 2:00 PM EDT Clinical Support [facility] DIABETES/NUTRITION [address] [place], [place] [phone] Ruby [address] [place], [place] [phone] 02/14/2025 11:00 AM EDT Office Visit [facility] MEDICINE [address] [place] [address] Taiwo Hicks MD [address] [place] [address] 02/26/2025 10:00 AM EDT Office Visit [facility]INE [address] [place] [address] Magalie Mars MD [address] [place] [address] 03/06/2025 3:30 PM EDT Office Visit [facility] OPTOMETRY [address] [place] [address] Skye David, OD [address] [place] [address] documented as of this encounter Procedures Procedure Name Priority Date/Time Associated Diagnosis Comments COLONOSCOPY Routine 11/24/2015 10:27 AM EST documented in this encounter Results * Colonoscopy (11/24/2015 10:27 AM EST) Colonoscopy Normal Normal Narrative Drea Pack - 11/24/2015 10:27 AM EST Recommended 3 year follow (tubular adenomas ) us Historical Provider [facility] Edited Result - Final documented in this encounter Visit Diagnoses Not on filedocumented in this encounter Care Teams Mattress Weaver Relationship Specialty Start Date End Date Magalie Mars MD [address] [place] [address] PCP - General Family Medicine 01/22/21 documented as of this encounter
--- OUTSIDE RECORDS SUMMARY | 2025-01-21 15:44 | XMS_ITS | Clinical Summary ---
Author Organization [facility] Address [address] [place] [address] Care Team Providers Care Shaft Sinker Name Role Phone Janelle Gan DMD Primary Care Provider [phone] Source Comments PLEASE NOTE, if this patient is a minor, it may be UNLAWFUL to discuss sensitive information that is contained in these records (such as FAMILY PLANNING, MENTAL HEALTH or SUBSTANCE ABUSE) with the minor patient's parent or other person without the patient's specific authorization.[facility] Social History Tobacco Use Types Packs/Day Years Used Date Smoking Tobacco: Never Assessed Social Connections Answer Date Recorded Connectedness 0 07/26/2024 Financial Resource Strain Answer Date R ecorded Financial Resource Strain 0 2021 Stress Answer Date Recorded Stress 0 07/12/2022 Physical Activity Answer Date Recorded Physical Activity 0 07/12/2022 Food Insecurity Answer Date Recorded Food 0 08/01/2024 Transportation Needs Answer Date Record ed Transportation 0 07/12/2022 Housing Stability Answer Date Recorded Housing 0 07/12/2022 Safety and Environment Answer Date Blake rded Safety 0 07/12/2022 Utilities Answer Date Recorded Utilities 0 07/12/2022 Employment Answer Date Recorded Stress 0 07/26/2024 Sex and Gender Information Value Date Recorded Sex Assigned at Not on file Legal Sex Male 11:39 AM PDT Gender Identity Not on file Sexual Orientation Not on file Plan of Treatment Health Maintenance Due Date Last Done Comments Diabetes Screening 1960 Hepatitis C Screening 1960 Lipid Screening 1960 Tobacco Screening 1960 HIV Screening 02/28/1975 Hypertension Screening (#1) 02/28/1978 Imm-DTaP/Tdap/Td (1 - Tdap) 02/28/1979 CT Colonography 02/28/2005 Colonoscopy 02/28/2005 Colorectal Cancer Screening 02/28/2005 FIT/gFOBT 02/28/2005 Fecal DNA 02/28/2005 Flexible Sigmoidoscopy 02/28/2005 Imm-Zoster, Recombinant (1 of 2) 02/28/2010 [id number] ( - 2023- season) 2024 Imm-Influenza (#1) 2024 Alcohol and Drug Screen 11/06/2024 Depression Annual Screen 11/06/2024 Insurance [place] [address] Care Teams Shaft Sinker Relationship Specialty Start Date End Date Janelle Gna DMD [address] [place] [address] PCP - General 01/15/21
--- OUTSIDE RECORDS SUMMARY | 2025-01-21 15:44 | XMS_ITS | Clinical Summary ---
Author Organization [employer] Address [address] [place] [address] 7[address] [place] [address] Care Team Providers Care Floor Trader Name Role Phone Magalie Mars MD Primary Care Provider + Allergies Active Allergy Reactions Criticality Noted Date Comments Gadoterate Meglumine Wheezing 10/01/2019 Other reaction(s): eyes swollen, O2 sat 80% on room air Iodinated Contrast Media 11/16/2022 Naltrexone Headache 11/16/2022 Weakness/vomiting Medications * This document contains information received from the source organization and may not represent a complete record from that organization. Blood Pressure Monitor kitIndications:Cindy mj hypertension Use as directed daily 1 kit 11/16/19 23 Active albuterol (ProAir HFA) 108 (90 Base) MCG/ACT inhalerIndications :Mild persistent asthma without complication,Mild intermittent asthma without complication Inhale 2 puffs every 6 (six) hours if needed for wheezing. 18 g 2 11/24/19 24 Active fluticasone furoate (Arnuity Ellipta) 100 MCG/ACT inhalerIndications :Mild persistent asthma without complication Inhale 1 puff in the morning. Rinse mouth with water after use to reduce aftertaste and incidence of candidiasis. Do not swallow. 1 each 11 11/24/19 24 Active Cialis 20 MG tabletIndications: Vasculogenic erectile dysfunction, unspecified vasculogenic erectile dysfunction type TAKE 1 TABLET BY MOUTH EVERY DAY NEEDED FOR SEXUAL ACTIVITY 10 tablet 01/25/20 24 Active naltrexone (Depade) 50 MG tablet 1/2 tablet PO once daily x 3 days, then 1 pill PO once daily. May take with food. 30 tablet 07/19/20 24 Active cetirizine (ZyrTEC) 10 MG tabletIndications: Seasonal allergic rhinitis due to pollen,Allergic conjunctivitis of both eyes TAKE 1 TABLET BY MOUTH EVERY MORNING 90 tablet 1 08/12/20 24 Active fluticasone (Flonase) 50 MCG/ACT nasal sprayIndications:S easonal allergic rhinitis due to pollen USE 1 SPRAY IN EACH NOSTRIL ONCE DAILY IN THE MORNING 48 g 08/12/20 24 Active Eliquis 5 MG tabletIndications: Chronic deep vein thrombosis (DVT) of calf muscle vein of left lower extremity (CMS/HCC) TAKE 1 TABLET BY MOUTH TWICE DAILY 180 tablet 1 08/12/20 24 Active lisinopril 20 MG tabletIndications: Primary hypertension Take 1 tablet (20 mg) by mouth in the morning. 90 tablet 3 11/07/19 25 026 Active guanFACINE (Tenex) 1 MG tabletIndications: Attention Deficit Hyperactivity Disorder Take 1 mg by mouth at bedtime. Active metFORMIN XR (Glucophage-XR) 750 MG 24 hr tabletIndications: Type 2 diabetes mellitus with hyperglycemia, without long-term current use of insulin (CMS/HCC) TAKE 1 TABLET BY MOUTH ONCE DAILY DO NOT BREAK, CRUSH, DISSOLVE OR CHEW. 90 tablet 3 11/28/19 25 Active gabapentin (Neurontin) 600 MG tablet 12/10/19 25 Active gabapentin (Neurontin) 800 MG tablet 12/10/19 25 Active zolpidem (Ambien) 10 MG tablet 12/10/19 25 Active mirtazapine (Remeron) 45 MG tablet 12/10/19 25 Active naltrexone (Depade) 50 MG tabletIndications: Alcohol use disorder, severe, dependence (CMS/HCC) Take 1 tablet (50 mg) by mouth Once per day. May take with food. 30 tablet 12/06/19 25 025 Active Problems Problem Noted Date Diagnosed Date Tubular adenoma 11/24/2023 Assessment & Plan (11/28/2024 3:35 PM EST): Colonoscopy in 2023, next 1 due in 2026 Assessment & Plan (11/24/2023 3:03 PM EST): Colonoscopy on 2015, overdue for A fu. Refer to GI for fu colonoscopy High liver transaminase level 09/04/2023 Assessment & Plan (11/28/2024 3:29 PM EST): Last LFTs 2 months ago were normal, 5 score shows moderate fibrosis. Patient has been sober for 3+ months, we will follow-up LFTs and AFP every year Advised to remain sober and follow-up with Dr. Hicks Assessment & Plan (11/24/2023 3:04 PM EST): Neg initial Hep profile and liver US (fatty liver). Fu LFTs and repeat hep profile Counseled to continue sobriety Assessment & Plan (09/04/2023 5:28 PM EDT): Hepatitis profile is NEG. It may be related to fatty liver. Will order liver US and fu LFTs in 3m Encounter for preventive health examination 07/07 Assessment & Plan (11/28/2024 10:07 AM EST): Discussed with patient re increase fresh fruit and vegetable intake. Counseled re moderate exercise as tolerated, up to 20min/d Patient feels safe at home. Eye exam: CRC screen: Lipids/FBS: Vaccinations: Dental visit: Assessment & Plan (11/24/2023 3:05 PM EST): Discussed with patient re increase fresh fruit and vegetable intake. Counseled re moderate exercise as tolerated, up to 20min/d Patient feels safe at home. Eye exam: Uptodate, next one due on 07/2024 CRC screen: Overdue for fu. Refer to GI Lipids/FBS: Uptodate, order for next appt. Vaccinations: PCV 20 today. Declined Influenza and Coivd vax. Order Hep titers. Dental visit: Overdue. I gave him list of dental clinics to make an appt. Assessment & Plan (07/21/2023 1:49 PM EDT): STI requested for pt Allergic conjunctivitis of both eyes 04/27/2023 Assessment & Plan (04/27/2023 1:58 PM EDT): Use cirtizine daily x1 month call back PRN, may need ketotifen ophthalmic Long toenail 12/30/2022 Assessment & Plan (11/24/2023 2:59 PM EST): Needs toenail trimming. FU with podiatry. Assessment & Plan (12/30/2022 11:58 AM EST): Will refer to podiatry for toenail treatment Arthritis of left foot 12/30/2022 Assessment & Plan (12/30/2022 11:59 AM EST): Refer to podiatry for follow up treatment Foot pain 12/27/2022 Mild persistent asthma without complication 12/08 Assessment & Plan (11/24/2023 2:56 PM EST): Add Fluticasone 100mg bid, continue albuterol prn only Declined Influenza and Coivd booster. Agreed to PCV20 today. PFTs done on 12/2022. Assessment & Plan (12/30/2022 11:58 AM EST): PFTs wnl. Continue albuterol daily for now and encouraged to continue exercise and weight reduction. Severe obesity 12/27/2022 Assessment & Plan (11/28/2024 3:34 PM EST): Discussed re weight reduction options including exercise, life style modifications, diet. Recommended to decrease soda and sugary beverage consumption, increase protein intake with meals (at least 1 portion of protein with each meal) to assist with satiety, increase dietary fiber Recommended at least 150 min/week of moderate intensity exercise. He's seeing a dietitian and has been losing weight Ingrowing toenail 11/16/2022 Restrictive lung disease 11/16/2022 Type 2 diabetes mellitus wit h hyperglycemia, without long-term current use of insulin 11/16/2022 Assessment & Plan (11/28/2024 10:08 AM EST): Controlled. A1c is at goal. Will continue Metformin and follow up with Marketing Forecaster. Counseled re more frequent low calorie/carb meals. Advised to fingerstick. Encouraged physical activity as tolerated. FU in 3-4 months. Declined influenza vaccine. Assessment & Plan (09/06/2024 10:24 AM EDT): Controlled. A1c is at goal. Will continue Metformin and follow up with Marketing Forecaster. Counseled re more frequent low calorie/carb meals. Advised to fingerstick. Encouraged physical activity as tolerated. FU in 3-4 months. Declined influenza vaccine. Assessment & Plan (08/16/2024 12:18 PM EDT): Most likely controlled, continue Metformin XR 750mg Check A1c in 4-6w. Counseled re more frequent low calorie/carb meals. Check fgstk 1x daily Encouraged physical activity as tolerated. Assessment & Plan (06/24/2024 2:41 PM EDT): Controlled. A1c is at goal. Continue on Metformin same dose for now. Counseled re more frequent low calorie/carb meals. Check fgstk 1x daily Encouraged physical activity as tolerated. FU in 3 months. Assessment & Plan (11/24/2023 3:01 PM EST): Controlled as of 07/2023, needs A1c At upcoming appt. Continue metformin XR 750mg and fu in 2-3m Assessment & Plan (09/04/2023 5:26 PM EDT): Controlled, see last month's note Assessment & Plan (07/21/2023 1:18 PM EDT): Controlled. A1c is at goal. Continue on metformin 750mg BID Counseled re more frequent low calorie/carb meals. Check fgstk once daily Encouraged physical activity as tolerated. FU in 3 months. Assessment & Plan (04/27/2023 2:01 PM EDT): Most likely controlled continue metformin BID only, glipizide DC'd two months ago. Counseled re more frequent low calorie/carb meals. Encouraged physical activity as tolerated. FU with me in 3-4 months Assessment & Plan (02/24/2023 10:51 AM EDT): Significantly improving, A1C at goal. Continue Metformin ER 750 BID. He will take Glipizide XL 2.5 mg on days that he is having a large meal like on hols or monday buffet. Check fingeresticks 1-2 hours post-prandially Counseled re more frequent low calorie/carb meals. Check fgstk twoce daily Encouraged physical activity as tolerated Pt seen by podiatry Continue fu with DM educator Appointment referral for optometry already in place FY in 6 weeks Assessment & Plan (12/30/2022 11:56 AM EST): Seems to be improving significantly. Continue glipizide 2.5 + Metformin 750 BID for now and FU in 6 weeks with A1C. He will FU with dietitian and continue lifestyle modifications including exercise. Continue close FU with DM educator. Will refer to optometry and podiatry. Assessment & Plan (11/29/2022 4:25 PM EST): Uncontrolled. Increase Glipizide to 5mg XL BID + Metformin 750 ER BID. Encouraged to continue with exercise and diet changes, proper hydration and snacks to use hypoglycemia PRN. Assessment & Plan (11/16/2022 2:50 PM EST): Newly Uncontrolled, risk of DKA due to ketonuria, patient w HTN, clinically stable otherwise. He's been out of care for 1y, I will start glipizide today with main meal, order labs and Check fgtsk (call [facility]) FU w me in 1w with labs Refer to DM educator and optometry Go to ED if he develops, nausea, abd pain, resp distress, MS changes. Primary hypertension 11/16/2022 Assessment & Plan (08/16/2024 12:17 PM EDT): Uncontrolled Increase lisinopril to 20mg/d and check labs prior to next appt w me FU in 6w Assessment & Plan (11/24/2023 2:58 PM EST): Stage 1, continue Lisinopril 10mg Stressed the importance of life style modifications. Fu in Assessment & Plan (09/04/2023 5:25 PM EDT): Improving, continue lisinopril 10mg and fu with me in Counseled re low salt diet/increase moderate physical activity. Check home BP BIW and prn CP/MEHTA/SALMERON Non smoking patient. Assessment & Plan (07/21/2023 1:49 PM EDT): Uncontrolled, pt is off lisinopril Restart lisinopril FU with 4-6 weeks Assessment & Plan (04/27/2023 2:00 PM EDT): Borderline controlled Encouraged pt to continue with lifestyle modifications Counseled re low salt diet/increase moderate physical activity. Check home BP BIW and prn CP/MEHTA/SALMERON Non smoking patient. No change in medications FU with me in 3 months Assessment & Plan (02/24/2023 10:52 AM EDT): Borderline controlled today, usually controlled at home Continue Lotrel 5/10 Order labs Counseled re low salt diet/increase moderate physical activity. Check home BP BIW and prn CP/MEHTA/SALMERON Non smoking patient. FU with me in 6 months Assessment & Plan (12/30/2022 11:58 AM EST): BP is much better controlled, goal is 130/85. Continue Lotrel 5/10mg Counseled re low salt diet/increase moderate physical activity. Check home BP BIW and prn CP/MEHTA/SALMERON Non smoking patient. FU in 2 months. Assessment & Plan (11/29/2022 4:28 PM EST): Uncontrolled. GFR is normal. Change to amlodipine/Benazepril 5/10 mg and FU in 3 weeks Encouraged to increase physical activity and limit sodium intake. Assessment & Plan (11/16/2022 2:56 PM EST): Uncontrolled. Start Amlodipine for now. Order labs and consider radha inh once we know GFR is >35. Check BP at home (will call [facility] to check on that) FU in 3-4w Costochondritis 11/16/2022 Assessment & Plan (11/16/2022 2:55 PM EST): Use tylenol or diclofenac gel prn Alcoholism 11/16/2022 Assessment & Plan (08/13/2024 1:08 PM EDT): - pt is doing well status- post detox + Naltrexone - continue close f/u with AUD program and group meetings. He feels safe at home and is able to reach out for safety - f/u in 1 month Assessment & Plan (06/24/2024 5:52 PM EDT): Information re detox provided to patient. I called and they came to provide support info and patient agreed to go to CRS building with he to reach out for detox information. Patient agreed that I would called his voice coach Nohemi at [facility] (ph# [phone]), obtained release of information and patient was present when I called her. She wasn't available at the time, I didn't leave a VM. I will contact her once patient has discuss POC with out CRS program and he decides that he wants to continue fu with Nohemi. Patient can call nohemi anytime he wants. FU with me in TV in 2-3w Assessment & Plan (09/04/2023 5:28 PM EDT): Sober for >1y. Continue AA meetings. Vitamin D deficiency 09/05/2018 Assessment & Plan (09/06/2024 10:25 AM EDT): Will check Vitamin D levels. Continue to OTC MVI for now. Assessment & Plan (11/16/2022 2:53 PM EST): Off vit D supplementation, check levels. Chronic deep vein thrombosis (DVT) of left lower extremity 12/29/2017 Assessment & Plan (11/28/2024 3:33 PM EST): Recurrent, he is on lifelong anticoagulation with Eliquis 5 mg twice daily. Pharmaco education provided specially risk of increased bleeding, he has to go to ED if he has a head trauma. Assessment & Plan (11/24/2023 2:57 PM EST): Recurrent on 2014 and 2015, he needs lifelong anticoagulation Recently switched to Eliquis 5mg bid, no significant bleeding. Pharmaco education provided, specially re risk of bleeding, go to ED If he has a fall. Assessment & Plan (04/27/2023 2:02 PM EDT): Followed by coumadin clinic, INR has been therapeutic for a long time goal is 2- 3. FU with coumadin clinic. Assessment & Plan (11/16/2022 2:45 PM EST): Recurrent DVT and PE Back on 2015. Seen by hematology, Dr Teixeira, needs life long anticoagulation. On coumadin and fu by coumadin clinic q2w. Call coumadin clinic to obtain dose and last INR, goal is 2-3. Vasculogenic erectile dysfunction 12/29/2017 Assessment & Plan (11/24/2023 3:02 PM EST): Doing well on Cialis Fu with urology. Assessment & Plan (09/04/2023 5:26 PM EDT): Failed Viagra. Rx Cialis today. D/w patient re taking it on empty stomach, side effects including face flushing, priapism etc were d/w patient. Refer to Urology Assessment & Plan (07/21/2023 1:50 PM EDT): Most likely related to HTN and DM Use viagra 50-100 mg PRN on empty stomach Latency enderation of medication of action discussed with pt FU in 4 weeks History of alcohol abuse 12/29/2017 Assessment & Plan (02/24/2023 10:52 AM EDT): hx of alcohol abuse Sober for 5 months Continue attending AA meetings and living in the sober house. FU PRN Assessment & Plan (11/16/2022 2:54 PM EST): Sober for 90d, didn't tolerate vivitrol in the past. Continue to fu closely at [facility], fu with MH team, AA meetings Check labs FU w me in 1m Mild intermittent asthma 12/29/2017 Assessment & Plan (11/16/2022 2:43 PM EST): Order PFts Continue albuterol prn Counseled re Influenza and covid vax He's a non smoker. He had pneumovax x1 only. FU at next appt for PCV 20 Mixed hypercholesterolemia and hypertriglyceride sunshine 12/29/2017 Assessment & Plan (09/06/2024 10:25 AM EDT): Uncontrolled, could be related to recently uncontrolled DM and Alcohol use. We discussed re rx options. Recommended moderate amount of exercise and increase consumption of fruit, vegetables, fish and high fiber foods. Should decrease consumption of highly saturated fats or trans fats. Repeat lipids in 6 months, will consider medications if needed. Assessment & Plan (08/16/2024 12:19 PM EDT): Uncontrolled, recent non compliance with det while using ETOH. Stress the importance of life style modifications (see below), DM control, FU lipids in 6m He wants to be more strict with life style modifications. Recommended moderate amount of exercise and increased consumption of fruit, vegetables, fish and high fiber foods. We discussed about avoiding consumption of highly saturated fats or trans fats. Assessment & Plan (09/04/2023 5:27 PM EDT): Persistent hyperTG. FU lipids in 6m He wants to be more strict with life style modifications. Recommended moderate amount of exercise and increased consumption of fruit, vegetables, fish and high fiber foods. We discussed about avoiding consumption of highly saturated fats or trans fats. Agreed to start meds if not improved in 6m Assessment & Plan (11/16/2022 2:54 PM EST): Check labs We discussed re rx options. He wants to be more strict with life style modifications. Recommended moderate amount of exercise and increased consumption of fruit, vegetables, fish and high fiber foods. We discussed about avoiding consumption of highly saturated fats or trans fats. Allergic rhinitis 12/29/2017 Assessment & Plan (04/27/2023 1:59 PM EDT): Use cetirizine daily x1 month use Flonase PRN Resolved Problems Problem Noted Date Diagnosed Date Resolved Date Class 1 obesity due to exces s calories with serious comorbidity and body mass index (BMI) of 31.0 to 31.9 in adult 09/06/2024 11/28/2024 Assessment & Plan (09/06/2024 2:45 PM EDT): Discussed re weight reduction options including exercise, life style modifications, diet Will refer to data modeling specialist. Recommended to decrease soda and sugary beverage consumption, increase protein intake with meals (at least 1 portion of protein with each meal) to assist with satiety, increase dietary fiber Recommended at least 150 min/week of moderate intensity exercise. COVID-19 12/27/2022 11/24/2023 Elevated blood-pressure read ing without diagnosis of hypertension 12/27/2022 08/16/2024 Obesity (BMI 35.0-39.9 without comorbidity) 12/27/2022 09/06/2024 Encounters Date Type Department Care Team Description 01/17/2025 11:00 AM EDT Office Visit [facility] MEDICINE [address] [place] [id number] Taiwo Hicks MD Alcohol use disorder, severe, in early remission (CMS/HCC) (Primary Dx) 01/17/2025 Travel 01/07/2025 Patient Outreach [facility] MED[facility] [address] [place] [address] Adriel Martini RC Recovery Supports 12/17/2024 1:00 PM EST Clinical Support [facility] DIABETES/NUTRITIO N [address], [place] [id number] Ruby Garcia RD Type 2 diabetes mellitus with hyperglycemia, without long-term current use of insulin (CMS/HCC) (Primary Dx); Mixed hypercholesterolemia and hypertriglyceridemia 12/17/2024 Patient Outreach [facility] [address] [place] [address] Eyad Benson 12/06/2024 11:00 AM EST Office Visit [facility] [address] [place] [address] Taiwo Hicks MD Alcohol use disorder, severe, dependence (CMS/HCC) (Primary Dx) 12/06/2024 Travel 12/05/2024 9:00 AM EST Office Visit [facility] OPTOMETRY [address] [place] [address] Frankie, Skye, OD Glaucoma suspect of both eyes (Primary Dx); Early cataracts, bilateral; Type 2 diabetes mellitus with hyperglycemia, without long-term current use of insulin (CMS/HCC) 12/05/2024 Travel 11/29/2024 Abstract [facility] [address] [place] [id number] Magalie Mars MD 11/28/2024 9:45 AM EST Office Visit [facility]INE [address] [place] [id number] Magalie Mars MD Type 2 diabetes mellitus with hyperglycemia, without long-term current use of insulin (CMS/HCC) (Primary Dx); High liver transaminase level; Mixed hypercholesterolemia and hypertriglyceridemia; Tubular adenoma; Chronic deep vein thrombosis (DVT) of calf muscle vein of left lower extremity (CMS/HCC); Severe obesity (CMS/HCC); Encounter for immunization; Class 1 obesity due to excess calories with serious comorbidity and body mass index (BMI) of 31.0 to 31.9 in adult 11/28/2024 Patient Outreach [address] [address] Emory Guzman 11/28/2024 Travel 11/19/2024 1:00 PM EST Clinical Support [facility] DIABETES/NUTRITIO N [address] [place] [id number] Type 2 diabetes mellitus with hyperglycemia, without long-term current use of insulin ([facility]/HCC) (Primary Dx); Mixed hypercholesterolemia and hypertriglyceridemia 11/19/2024 Patient Outreach [facility] [address] [place] [id number] Adriel Martini Recovery Supports 11/19/2024 Travel 11/18/2024 Patient Outreach [facility] MEDICINE [address] [place] [id number] Magalie Mars MD Care Coordination ([facility] outreach for SDOH pet's control - LVM ) 11/18/2024 Patient Outreach [address] [address] Magalie Mars MD Pre-visit Planning (SDOH screening positive and tobacco screening negative) 11/12/2024 Patient Outreach [address] [phone] Eyad Benson Recovery Supports 11/08/2024 11:00 AM EST Office Visit [address] [address] Taiwo Hicks MD Alcohol use disorder, severe, in early remission (CMS/HCC) (Primary Dx) 11/08/2024 Travel 11/04/2024 Patient Outreach [address] [address] Emory Guzman Recovery Supports from Last 3 Months Immunizations Name Administration Dates Next Due Hep A, Adult 12/08/2016,06/02/2016 Hep B, adult 12/08/2016, 6,06/02/2016,2014 Influenza injectable quadriv alent IIV4 with preservative 09/05/2018 Influenza injectable quadriv alent preservative free 09/06/2016 Influenza, Split (incl. mannie fied surface antigen) 07/20/2012 [place] SARS-CoV-2 Vaccination 02/08/2021 Pneumococcal Conjugate PCV 13 01/27/2017 Pneumococcal Conjugate PCV 20 11/24/2023 TD (adult), 2 Lf tetanus tox oid, preservative free, adsorbed 11/28/2024 Tdap 05/23/2012,05/04/2011 Family History Medical History Relation Name Comments Alcohol abuse Father Suicide Father Coronary artery disease Mother Ovarian cancer Mother Lupus Sister Relation Name Status Comments Father Mother Sister Social History Tobacco Use Types Packs/Day Years Used Date Smoking Tobacco: Never Smokeless Tobacco: Never Tobacco Cessation:Counseling Given: Not Answered Alcohol Use Standard Drinks/Week Comments Not Currently 0 (1 standard drink = 0.6 oz pur e alcohol) Alcohol Answer Date Recorded Frequency of Alcohol Consumption Not on file 07/19/2024 Average Number of Drinks Not on file 024 Frequency of Binge Drinking Not on file 07/07 Score 0 07/19/2024 Depression Answer Date Recorded Patient Health Questionnaire-9 Score 0 11/28/2024 Patient Health Questionnaire-9 Score 0 11/28/2024 Last PHQ-9: Questionnaire Data Not on file 0 11/28/2024 Housing Stability Answer Date Recorded What is your housing situation today? I have ronni oakes 11/28/[address] you li ve. Do you have problems with any of the following? None of the above 11/28/2024 Food Insecurity Answer Date Recorded Within the past 12 months, y ou worried that your food would run out before you got money to buy more: Never True 08/22/2023 Within the past 12 months,th e food you bought just didn't last and you didn't have enough money to get more: Never True Transportation Answer Date Recorded In the past 12 months, has l ack of transportation kept you from medical appts, meetings, work or from getting things needed for daily living? No 07/19/2024 Utilities Answer Date Recorded In the past 12 months, has t he electric, gas, oil or water company threatened to shut off services in your home? No 08/22/2023 Depression Answer Date Recorded Patient Health Questionnaire-2 Score 0 11/28/2024 Internet Access Answer Date Recorded Internet Access Q1 Yes 11/18/2024 Internet Access Q2 Not on file 11/18/2024 Sex and Gender Information Value Date Recorded Sex Assigned at Male 09/05/2022 10:21 AM EDT Legal Sex Male 10:21 AM EDT Gender Identity Choose not to disclose 10:21 AM EDT Sexual Orientation Choose not to disclose 2021 10:21 AM EDT Last Filed Vital Signs Vital Sign Reading Time Taken Comments Blood Pressure 120/78 12/06/2024 11:03 AM EST Pulse 71 12/06/2024 11:03 AM EST Temperature 36.4 ??C (97.6 ??F) 12/06/2024 11:[address] Respiratory Rate 20 11/28/2024 9:24 AM EST Oxygen Saturation 98% 11/28/2024 9:24 AM EST Inhaled Oxygen Concentration - - Weight 88.7 kg (195 lb 9.6 oz) 12/18/2024 11:28 AM EST Height 170.2 cm (5' 7 ) 12/18/2024 11:28 AM EST Body Mass Index 30.64 12/18/2024 11:28 AM EST Plan of Treatment Upcoming Encounters Date Type Department Care Team (Late st Contact Info) Description 01/24/2025 2:00 PM EDT Clinical Support [facility] [facility] DIABETES/NUTRITION [address] [place] [address] Ruby Garcia, TRISHA [address] [place] [address] 02/14/2025 11:00 AM EDT Office Visit [facility] MEDICINE [address] [place] [address] Taiwo Hicks MD [address] [place] [address] 02/26/2025 10:00 AM EDT Office Visit [facility] MEDICINE [address] [place] [address] Magalie Mars MD [address] [place] [address] 03/06/2025 3:30 PM EDT Office Visit [facility] OPTOMETRY [address] [place] [address] Frankie, Skye, OD [address] [place] [address] Health Maintenance Due Date Last Done Comments CT Colonography 1960 FIT DNA/Cologuard 1960 FIT 1960 FOBT 1960 Sigmoidoscopy 1960 Zoster Vaccines (1 of 2) 02/28/2010 RSV Patients and Patients Aged 60 years or older (1 - Risk 60-74 years 1-dose series) 2020 COVID-19 Vaccine (2 - season) 2024 02/08/2021 Influenza Vaccine (#1) 2024 8, 09/06/2016, 07/20/2012 Diabetes: Hemoglobin A1C 05/28/2025 025, 06/24/2024, 07/21/2023, Additional history exists Alcohol/Substance Use Screening 06/24/2025 06/24/2024 Diabetes: Urine Protein Screening 08/05/2025 08/05/2024, 10/15/2021 Lipid Panel 08/05/2025 08/05/2024, 07/07, 10/15/2021, Additional history exists Depression Screening 11/28/2025 11/28/2024, 11/28/19 25 Diabetes: Foot Exam 11/28/2025 11/28/2024, 11/28/2024, 11/28/2024, Additional history exists SDOH Screening 11/28/2025 11/28/2024 Tobacco Screening 12/24/2025 12/24/2024 Eye Exam 12/05/2026 12/05/2024, 11/08, 12/05/2024, Additional history exists Colonoscopy 10/17/2027 10/17/2024, 11/24/2015 Colorectal Cancer Screening 10/17/2027 DTaP/Tdap/Td Vaccines (4 - Td or Tdap) 11/28/2034 11/28/2024, 05/23/2012, 05/04/2011 Hepatitis A Vaccines Aged Out 12/08/2016, 06/02/20 16 No longer eligible based on patient's age to complete this topic Hepatitis B Vaccines Completed 12/08/2016, 07/14/2016, 06/02/2016, Additional history exists Pneumococcal Vaccine: 50+ Years Completed 11/24/2023, 01/27/2017 HIV Screening Completed 08/05/2024 Hepatitis C Screening Completed 08/05/2024 , 08/05/2024, 07/24/2023 HIB Vaccines Aged Out No longer eligi ble based on patient's age to complete this topic HPV Vaccines Aged Out No longer eligi ble based on patient's age to complete this topic IPV Vaccines Aged Out No longer eligi ble based on patient's age to complete this topic Meningococcal Vaccine Aged Out No tano sabino eligible based on patient's age to complete this topic RSV under 20 months Aged Out No longe r eligible based on patient's age to complete this topic Rotavirus Vaccines Aged Out No longer eligible based on patient's age to complete this topic Procedures Procedure Name Priority Date/Time Associated Diagnosis Comments POCT KEATON-14 URINE DRUG SCREEN Routine 12/06/2024 11:05 AM EST Alcohol use disorder, severe, dependence (CMS/HCC) POCT ALCOHOL BREATH TEST Routine 12/06/2024 11:05 AM EST Alcohol use disorder, severe, dependence (CMS/HCC) AUTOMATED VISUAL FIELD, EXTENDED - OU - BOTH EYES Routine 12/05/2024 9:00 AM EST Glaucoma suspect of both eyes OCT, OPTIC NERVE - OU - BOTH EYES Routine 12/05/2024 9:00 AM EST Glaucoma suspect of both eyes POCT GLYCATED HEMOGLOBIN, TOTAL Routine 11/28/2024 9:47 AM EST Type 2 diabetes mellitus with hyperglycemia, without long-term current use of insulin (CMS/HCC) POCT GLUCOSE Routine 11/28/2024 9:47 AM EST Type 2 diabetes mellitus with hyperglycemia, without long-term current use of insulin (CMS/HCC) POCT ALCOHOL BREATH TEST Routine 11/08/2024 11:09 AM EST Alcohol use disorder, severe, in early remission (CMS/HCC) POCT KEATON-14 URINE DRUG SCREEN Routine 11/08/2024 11:08 AM EST Alcohol use disorder, severe, in early remission (CMS/HCC) HM COLONOSCOPY Routine 10/17/2024 HEPATITIS PANEL, GENERAL Routine 08/05/2024 10:59 AM EDT Elevated liver enzymes HIV 1/2 ANTIGEN/ANTIBODY, FOURTH GENERATION W/RFL Routine 08/05/2024 10:59 AM EDT Alcohol use disorder, severe, dependence (CMS/HCC) ALBUMIN, RANDOM URINE W/CREATININE Routine 08/05/2024 10:59 AM EDT Type 2 diabetes mellitus with hyperglycemia, without long-term current use of insulin ([facility]) LIPID PANEL WITH REFLEX TO DIRECT LDL Routine 08/05/2024 10:59 AM EDT Primary hypertension Type 2 diabetes mellitus with hyperglycemia, without long-term current use of insulin ([facility]) from Last 3 Months or Most Recently Relevant to Health Maintenance Results * POCT KEATON-14 Urine Drug Screen (12/06/2024 11:05 AM EST) Only the most recent of2 resultswithin the time period is included. THC Negative Cocaine Screen, Urine Negative Opiate Screen, Urine Negative Methamphetamine Screen Urine Negative Amphetamine Screen, Urine Negative Benzodiazepines Screen, Urine Negative Barbiturate Screen, Urine Negative Methadone Screen, Urine Negative Buprenophine Screen, Urine Negative TCA, Urine Negative MDMA Urine Negative ng/mL Oxycodone Screen, Urine Negative Phencyclidine (PCP), Urine Negative Propoxyphene, Urine Negative Fentanyl, Urine Negative Urine Urine specimen obtained by clean catch procedure / Unknown 12/06/2024 11:05 AM EST us Taiwo Hicks MD POINT OF CARE TEST ENTER/EDIT ORDERABLES Final Result * POCT alcohol breath test manually resulted (12/06/2024 11:05 AM EST) Only the most recent of2 resultswithin the time period is included. Breath Alcohol 0.00 Breath 12/06/2024 11:0 5 AM EST us Taiwo Hicks MD POINT OF CARE TEST ENTER/EDIT ORDERABLES Final Result * OCT, Optic Nerve - OU - Both Eyes (12/05/2024 9:00 AM EST) Narrative Skye David, OD - 12/24/2024 1:40 PM EST Right Eye Images reviewed and comparison made to baseline. To assess optic nerve function and for use in future follow-up. Reliability: good and adequate. Left Eye Images reviewed and comparison made to baseline. To assess optic nerve function and for use in future follow-up. Reliability: good and adequate. Notes OCT OPTIC NERVE INTERPRETATION Optical Coherence Tomography Interpretation Report Test Details: Measurements: OD ??OS C/D Horizontal 0.69 ??0.79 C/D Vertical 0.66 ??0.76 Disc area 2.06 mm 2 ??1.97 mm 2 RNFL Average 96 microns ??93 microns ?? Test findings: OD: normal RNFL thickness in all quadrants OS: normal RNFL thickness in all quadrants Impression and Plan: 3 micron decrease in RNFL right eye (OD), stable RNFL thickness left eye (OS). Normal RNFL findings in both eyes today, will continue to monitor at follow-ups. us Skye David OD OPHTH TOMOGRAPHY Final Result * Automated Visual Field, Extended - OU - Both Eyes (12/05/2024 9:00 AM EST) Skye Sin, OD - 12/24/2024 1:47 PM EST VISUAL FIELD INTERPRETATION Visual Field Interpretation Test Details: Octopus G P Pulsar/ 200/ TOP Reliability Indices: False positive errors OD: 0/7 OS: 0/7 False negative errors OD: 0/8 OS: 0/8 Statistical Indices: MS [src]: OD: 18.3 OS: 18.6 MD [< 2.0 src]: OD: 3.3 OS: 2.9 sLV [< 2.5 src]: OD: 3.2 OS: 2.3 Impression: Reason for testing: Optic nerve asymmetry L>R with elevated intraocular pressure (IOP) both eyes (OU) Test Reliability: Good. No false positives or negatives Impression: Right eye (OD): Shallow peripheral constriction of superior temporal, superior nasal, and inferonasal quadrants. Possible early superior arcuate defect. Central vision clear. ?? L: Shallow peripheral constriction of superior temporal, superior nasal, and inferonasal quadrants. Possible early inferonasal step defect. Central vision clear. ?? Progression: No other tests available for comparison. Management Plan: Will have patient return in 1-3 months for a repeat field to determine whether defects are repeatable. us Skye David OD OPHTH VISUAL FIELD Final Resu lt * POCT HGB A1C (11/28/2024 9:47 AM EST) Hemoglobin A1C 5.9 4.0 - 6.0 % QC Media Lot # [id number] Lot# Expiration Date Blood 11/28/2024 9:47 AM EST Magalie Mars MD POINT OF CARE TEST ENTER /EDIT ORDERABLES Final Result * POCT Glucose (11/28/2024 9:47 AM EST) Pathologist [facility] Glucose Blood, POC 103 60 - 200 mg/dL QC Media Lot # [id number] Lot# Expiration Date Blood Capillary blood specimen / Unknown 11/28/2024 9:47 AM EST Magalie Mars MD POINT OF CARE TEST ENTER /EDIT ORDERABLES Final Result * (ABNORMAL) Hm Colonoscopy (10/17/2024) Pathologist [facility] Colonoscopy Abnormal(A ) Normal [facility] Comment:2 TA Magalie Mars MD HEALTH MAINTENANCE Final Result [facility] [address] [place] [phone] * (ABNORMAL) Lipid Panel with Reflex to Direct LDL (08/05/2024 10:59 AM EDT) Pathologist [facility] Triglycerides 114 <150 mg/dL [facility] Comment:Desirable Triglyceri de: less than 150 mg/dLBorderline High Triglyceride 150-199 mg/dLHigh Triglyceride: 200-499 mg/dLVery High Triglyceride: greater than or equal to 5OO mg/dL Cholesterol 214(H) <200 mg/dL [facility] Comment:Desirable Cholestero l: less than 200 mg/dLBorderline High Cholesterol: 200-239 mg/dLHigh Cholesterol: greater than 239 mg/dL LDL Cholesterol Calculated 153(H) <100 mg/dL [facility] Comment:Desirable LDL: less than 100 mg/dLNear Optimal/Above Optimal LDL: 110- 129 mg/dLBorderline High LDL: 130-159 mg/dLHigh LDL: 160-189 mg/dLVery High LDL: greater than or equal to 190 mg/dL HDL Cholesterol 39(L) >40 mg/dL [facility] Comment:Desirable HDL: great er than 40 mg/dL Note: This HDL assay may give artificially low results in patients with liver disease. Blood 08/05/2024 10:5 9 AM EDT 08/05/2024 1:07 PM EDT us Magalie Mars MD LAB BLOOD ORDERABLES Fin al Result Performing Organization Address City/[facility]/ZIP Co de Phone Number [facility] [address] [place] [phone] * Hepatitis Panel, General (08/05/2024 10:59 AM EDT) Hepatitis A IgM Nonreactive Nonreactive [facility] Comment:IgM antibodies to MEHTA V not detected; does not exclude earlyacute or recovered HAV infection. ~Hepatitis B Surface Antibody REACTIVE Nonreactive [facility] Comment:REACTIVE: > 11.99 mI U/mL Hepatitis B Core Antibody Nonreactive Nonreactive [facility] Hepatitis C Antibody Nonreactive Nonreactive [facility] Comment:Antibodies to HCV no t detected; does not exclude early acuteHCV infection. Hepatitis B Surface Ag Negative Negative [facility] Blood 08/05/2024 10:5 9 AM EDT 08/05/2024 1:07 PM EDT us Magalie Mars MD LAB BLOOD ORDERABLES Fin al Result [facility] [address] [place] [phone] * Albumin, Random Urine W/Creatinine (08/05/2024 10:59 AM EDT) Creatinine, Urine 125.62 mg/dL [facility] Microalbumin Urine 6.0 mg/L [facility] Microalbum Creatinine Ratio Ur 4.7 <30 ug/mg cr [facility] Comment:Albumin/Creatinine R atio Reference Ranges: Normal: < 30 ug/mg creatinine Microalbuminuria: 30 - 300 ug/mg creatinineClinical Albuminuria: > 300 ug/mg creatinine Urine (Urine, Random) 08/05/2024 10:59 AM EDT 08/05/2024 1:05 PM EDT us Magalie Mars MD LAB URINE ORDERABLES Fin al Result Performing Organization Address [facility]/ZIP Co de Phone Number [facility] [address] [place] [phone] * HIV-1/2 Antigen and Antibodies, Fourth Generation, with Reflexes (08/05/2024 10:59 AM EDT) HIV AB/AG Nonreactive Nonreactive [facility] Comment:HIV-1 p24 Ag and/or HIV-1/HIV-2 Ab not detected.A test result that is nonreactive does not exclude thepossibility of exposure to or infection with HIV-1 and/orHIV-2. Nonreactive results in this assay for individualswith prior exposure to HIV-1 and/or HIV-2 may be due toantigen and antibody levels that are below the limit ofdetection of this assay.The [employer] HIV Ag/Ab Combo assay result andsupplemental assay results should be interpreted inconjunction with the patient's clinical presentation,history and other laboratory results. If the results areinconsistent with clinical evidence, additional testing issuggested to confirm the result. Blood Venous blood specimen / Unknown 08/05/2024 10:59 AM EDT 08/05/2024 1:07 PM EDT us Taiwo Hicks MD LAB BLOOD ORDERABLES Final Res ult Performing Organization Address [facility]/ZIP Co de Phone Number [facility] [address] [place] [address] [phone] from Last 3 Months or Most Recently Relevant to Health Maintenance Insurance [employer] Care Teams Floor Trader Relationship Specialty Start Date End Date Magalie Mars MD [address] [place] [phone] PCP - General Family Medicine 01/22/21
--- OUTSIDE RECORDS SUMMARY | 2025-01-21 15:44 | XMS_ITS | Encounter Summary ---
Author Organization [employer] Address [address] [facility] 7t [place] [address] Care Team Providers Care Ship Liner Name Role Phone Magalie Mars MD Primary Care Provider + Encounter Details Date Type Department Care Team (Latest Contact Info) Description 01/17/2025 Travel Social History Tobacco Use Types Packs/Day Years [...] Description 01/24/2025 2:00 PM EDT Clinical Support [facility] DIABETES/NUTRITION [address] [place] [address] [place] [address] 02/14/2025 11:00 AM EDT Office Visit [facility] MEDICINE [address] [place] [address] Taiwo Hicks MD [address] [place] [address] 02/26/2025 10:00 AM EDT Office Visit [facility] MEDICINE [address] [place] [address] Magalie Mars MD [address] [place] [address] 03/06/2025 3:30 PM EDT Office Visit [facility] OPTOMETRY [address] [place] [address] Skye David, OD [address] [place] [address] documented as of this encounter Visit Diagnoses Not on filedocumented in this encounter Additional Health Concerns Assessment Noted Time PHQ-9 Depression Total Score: 0 11/28/19 25 9:38 AM EST documented as of this encounter Care Teams Ship Liner Relationship Specialty Start Date End Date Magalie Mars MD [address] [place] [phone] PCP - General Family Medicine 01/22/21 documented as of this encounter
--- OUTSIDE RECORDS SUMMARY | 2025-01-21 15:44 | XMS_ITS | Encounter Summary ---
Author Organization [employer] Address [address] [facility] 7[address] [place] [address] Care Team Providers Care Bologna Lacer Name Role Phone Magalie Mars MD Primary Care Provider + Encounter Details Date Type Department Care Team ([facility] st Contact Info) Description 08/15/2023 Telephone [facility] MEDICINE [address] [place], [place] [phone] Magalie Mars MD [address] [place], [place] [phone] Social History Tobacco Use Types Packs/Day Years Used Date Smoking Tobacco: Never Smokeless Tobacco: Never Alcohol Use Standard Drinks/Week Comments Not Currently 0 (1 standard drink = 0.6 oz pur e alcohol) PHQ-2 Answer Date Recorded Patient Health Questionnaire-2 Score 2 11/16/2022 Housing Stability Answer Date Recorded What is your housing situation today? I have ronni oakes 08/15/[address] you li ve. Do you have problems with any of the following? None of the above 08/15/2023 Food Insecurity Answer Date Recorded Within the past 12 months, y ou worried that your food would run out before you got money to buy more: Never True 08/15/2023 Within the past 12 months,th e food you bought just didn't last and you didn't have enough money to get more: Never True 08/2023 Transportation Answer Date Recorded In the past 12 months, has l ack of transportation kept you from medical appts, meetings, work or from getting things needed for daily living? No 08/15/2023 Utilities Answer Date Recorded In the past 12 months, has t he electric, gas, oil or water [employer] threatened to shut off services in your home? No 08/15/2023 Depression Answer Date Recorded Patient Health Questionnaire-2 Score 2 11/16/2022 Sex and Gender Information Value Date Recorded Sex Assigned at Male 09/05/2022 10:21 AM EDT Legal Sex Male 10:21 AM EDT Gender Identity Choose not to disclose 10:21 AM EDT Sexual Orientation Choose not to disclose 2021 10:21 AM EDT documented as of this encounter Miscellaneous Notes * Telephone Encounter - Oliva Nicholson RN - 08/15/2023 2:30 PM EDT FYI from [facility] * Telephone Encounter - Carin Carter LPN - 08/15/2023 2:15 PM EDT Critical Result Line call received now. INR 1.4 today (2.0-3.0 range) Warfarin 11.25 today and tomorrow recheck on Monday. Please update PCP on patient status. documented in this encounter Plan of Treatment Upcoming Encounters Date Type Department Care Team (Late st Contact Info) Description 01/24/2025 2:00 PM EDT Clinical Support [facility] DIABETES/NUTRITION [address] [place] [phone] [place] [address] 02/14/2025 11:00 AM EDT Office Visit [facility] MEDICINE [address] [place] [phone] Taiwo Hicks MD [address] [place] [address] 02/26/2025 10:00 AM EDT Office Visit [facility] MEDICINE [address] [place] [phone] Magalie Mars MD [address] [place], [place] [phone] 03/06/2025 3:30 PM EDT Office Visit [facility] OPTOMETRY [address] [place], [place] [phone] Skye David, OD [address] [place], [place] [phone] documented as of this encounter Visit Diagnoses Not on filedocumented in this encounter Care Teams Bologna Lacer Relationship Specialty Start Date End Date Magalie Mars MD [address] [place], [place] [phone] PCP - General Family Medicine 01/22/21 documented as of this encounter
--- OUTSIDE RECORDS SUMMARY | 2025-01-21 15:44 | XMS_ITS | Encounter Summary ---
Author Organization [employer] Address [address] [place] [address] 7t [place] [address] Care Team Providers Care Manufacturing Design Engineer Name Role Phone Magalie Mars MD Primary Care Provider + Encounter Details Date Type Department Care Team (Late st Contact Info) Description 08/03/2023 Telephone [facility] MEDICINE [address] [place], [place] [phone] Magalie Mars MD [address] [place], [place] [phone] Social History Tobacco Use Types Packs/Day Years [...] Telephone Encounter - Oliva Nicholson RN - 08/03/2023 2:06 PM EDT FYI r/t elevated INR at [facility]. Recheck scheduled for Monday * Telephone Encounter - Carin Carter LPN - 08/03/2023 1:53 PM EDT Critical result line call received from Regina RN Patients INR today is 5.4 Patient declined lab draw for verification. Per RN patient had been away and not seen for some time though was seen last on 07/21/23 and was elevated at that time. Patient reports increased fruit intake. Normal dose is Warfarin 7.5mg x 6 days and 11.25 on Mondays. Today Warfarin held. Tomorrow will resume Warfarin 7.5mg for Monday, Monday and Monday. Monday patient will take 7.5mginstead of 11.25. Recheck will be on Monday. Please contact Regina with any questions or concerns. Patient advised dietary recommendations with Regina. documented in this encounter Plan of Treatment Upcoming Encounters Date Type Department Care Team (Late st Contact Info) Description 01/24/2025 2:00 PM EDT Clinical Support [facility] DIABETES/NUTRITION [address] [place] [address] Ruby Garcia, TRISHA [address] [place] [address] 02/14/2025 11:00 AM EDT Office Visit [facility] MEDICINE [address] [place] [address] Taiwo Hicks MD [address] [place] [address] 02/26/2025 10:00 AM EDT Office Visit [facility] MEDICINE [address] [place] [address] Magalie Mars MD [address] [place] [address] 03/06/2025 3:30 PM EDT Office Visit [facility] OPTOMETRY [address] [place] [phone] Skye David, OD [address] [place] [address] documented as of this encounter Visit Diagnoses Not on filedocumented in this encounter Care Teams Manufacturing Design Engineer Relationship Specialty Start Date End Date Magalie Mars MD [address] [place] [phone] PCP - General Family Medicine 01/22/21 documented as of this encounter
--- OUTSIDE RECORDS SUMMARY | 2025-01-21 15:44 | XMS_ITS | Clinical Summary ---
Author Organization 175 [facility] Address 175 [place] [address] Phone Care Team Providers Care Rn Endoscopy Name Role Phone Magalie Mars MD Primary Care Provider + [phone] Allergies Active Allergy Reactions Criticality Noted Date Comments Other 10/27/2020 Contrast Dye [Iv Contrast Dye] Medications warfarin (COUMADIN) 5 mg tablet TAKE 1 TO 1 & 1/2 TABLETS DAILY DIRECTED BY COUMADIN CLINIC 09/24/2020 Active atorvastatin (LIPITOR) 20 mg tablet TAKE 1 TABLET BY MOUTH EVERY EVENING 09/17/2020 Active cholecalciferol (VITAMIN D-3) 50 mcg (2,000 unit) capsule Take 1 Cap by mouth daily. 10/13/2020 Active allopurinoL (ZYLOPRIM) 300 mg tablet Take 300 mg by mouth daily. Active aspirin 81 mg EC tablet Take 81 mg by mouth daily. Active indomethacin (INDOCIN) 25 mg capsule Take 25 mg by mouth 2 times daily (with meals). Active fluticasone propionate (FLOVENT HFA INHL) Inhale into the lungs as needed. Active Encounters Date Type Department Care Team Description 11/04/2024 2:45 PM EST Office Visit Orthopedic Surgery [facility] 250 175 [facility] [address] [place] [phone] Robin Ayala, DPM Primary osteoarthritis of both feet (Primary Dx); Bilateral foot pain; Diabetic mononeuropathy simplex (CMS/HCC) from Last 3 Months Medical History Medical History Date Comments Unspecified essential hypertension DX:Unspecified essential hypertension Family History Medical History Relation Name Comments Cataracts Brother Blindness Neg Hx Glaucoma Neg Hx Macular degeneration Neg Hx Strabismus Neg Hx Relation Name Status Comments Brother Social History Tobacco Use Types Packs/Day Years Used Date Smoking Tobacco: Former Smokeless Tobacco: Never Sex and Gender Information Value Date Recorded Sex Assigned at Not on file Legal Sex Male 4:32 AM EST Gender Identity Not on file Sexual Orientation Not on file Obstetrics History Last Filed Vital Signs Vital Sign Reading Time Taken Comments Blood Pressure - - Pulse - - Temperature - - Respiratory Rate - - Oxygen Saturation - - Inhaled Oxygen Concentration - - Weight 96.2 kg (212 lb) 11/04/2024 3:05 PM EST Height 170.2 cm (5' 7.01 ) 11/04/2024 3:05 PM ES T Body Mass Index 33.2 11/04/2024 3:05 PM EST Plan of Treatment Upcoming Encounters Date Type Department Care Team (Late st Contact Info) Description 02/03/2025 2:30 PM EDT Office Visit Orthopedic Surgery - [place] [address] [phone] Robin Ayala, DPM [address] [address] Health Maintenance Due Date Last Done Comments Diabetes: Annual Foot Exam 02/28/1970 Diabetes: Annual Retina Eye Exam 02/28/1970 Zoster Vaccines (1 of 2) 02/28/2010 RSV Immunization Patients 60+ Years Old (1 - Risk 60-74 years 1-dose series) 2020 DTaP,Tdap,and Td Vaccines (3 - Td or Tdap) 05/23/2022 05/23/2012, 05/04/2011 Cholesterol Screening (Lipid Panel) 10/09/2022 Colorectal Cancer Screening: Colonoscopy 10/09/2022 Medicare Annual Wellness Visit 10/09/2022 Social Influencers of Health Screening 10/09/2022 COVID-19 Vaccine ( - season) 2024 02/08/2021 Influenza Vaccine (#1) 2024 8, 09/06/2016, 07/20/2012 Diabetes: Annual Urine Albumin-Creatinine Ratio (uACR) 08/15/2024 Diabetes: Blood Sugar Control Test (HGBA1C) 12/25/2024 06/24/2024 Depression Screening 06/24/2025 06/24/2024 Diabetes: Annual GFR (Glomerular Filtration Rate) 10/04/2025 10/04/2024, 08/05/2024 Hypertension/CHF/CAD Annual BMP Blood Test 10/04/2025 10/04/2024, 08/05/2024 Hepatitis A Vaccines Completed 12/08/2016, 06/02/20 16 Hepatitis B Vaccines Completed 12/08/2016, 07/14/2016, 06/02/2016, Additional history exists Pneumococcal Vaccine: 50+ Years Completed 11/24/2023, 01/27/2017 Pneumococcal Vaccine: Pediatrics (0 to 5 Years) and At-Risk Patients (6 to 64 Years) Completed 11/24/2023, 01/27/2017 HIV Screening Completed 08/05/2024 Hepatitis C Screening Completed 08/05/2024 HIB Vaccines Aged Out No longer eligi ble based on patient's age to complete this topic HPV Vaccines Aged Out No longer eligi ble based on patient's age to complete this topic IPV Vaccines Aged Out No longer eligi ble based on patient's age to complete this topic MMR Vaccines Aged Out No longer eligi ble based on patient's age to complete this topic Meningococcal ACWY Vaccine Aged Out N o longer eligible based on patient's age to complete this topic Meningococcal B Vacine Aged Out No lo nger eligible based on patient's age to complete this topic RSV Immunization Patients Under 20 months Aged Out No longer eligible based on patient's age to complete this topic Varicella Vaccines Aged Out No longer eligible based on patient's age to complete this topic Procedures Procedure Name Priority Date/Time Associated Diagnosis Comments XR FOOT 3+ VIEWS BILAT Routine 11/04/2024 3:12 PM EST Bilateral foot pain COMPREHENSIVE METABOLIC PANEL Routine 10/04/2024 12:28 PM EST 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, in remission (CMS/HCC) from Last 3 Months or Most Recently Relevant to Health Maintenance Results * XR Foot 3+ Views bilat (11/04/2024 3:12 PM EST) Anatomical Region Laterality Modality Lower Extremities, Foot Bilateral Computed Radiography Narrative 11/04/2024 5:33 PM EST Right foot ??3 views No fracture. No radiopaque foreign first ray Normal ?toes Normal ?joint spaces forefoot ?? Arthritis mild ? joint spaces midfoot ?? Arthritis mild ? joint spaces hindfoot ??Arthritis mild ? Foot position rectus Normal talus navicular position normal calcaneal inclination normal symes line talus navicular joint to calcaneal cuboid joint Left foot 3 views No fracture. No radiopaque foreign first ray Normal ?toes Normal ?joint spaces forefoot ?? Arthritis mild ? joint spaces midfoot ?? Arthritis mild ? joint spaces hindfoot ??Arthritis mild ? Foot position rectus Normal talus navicular position normal calcaneal inclination normal symes line talus navicular joint to calcaneal cuboid joint us Robin Ayala DPM IMG XR PROCEDURES Final R esult * (ABNORMAL) Comprehensive metabolic panel (10/04/2024 12:28 PM EST) Sodium 137 133 - 145 mmol/L LAB CHEMISTRY METHOD 10/04/2024 1:26 PM [facility] Potassium 4.7 3.5 - 5.5 mmol/L LAB CHEMISTRY METHOD 10/04/2024 1:26 PM [facility] Chloride 105 96 - 110 mmol/L LAB CHEMISTRY METHOD 10/04/2024 1:26 PM [facility] CO2 28 21 - 32 mmol/L LAB CHEMISTRY METHOD 10/04/2024 1:26 PM [facility] Anion Gap 4 3 - 11 LAB CHEMISTRY METHOD 10/04/2024 1:26 PM [facility] Glucose 104(H) 70 - 100 mg/dL LAB CHEMISTRY METHOD 10/04/2024 1:26 PM [facility] BUN 25 5 - 25 mg/dL LAB CHEMISTRY METHOD 10/04/2024 1:26 PM [facility] Creatinine 1.04 0.70 - 1.30 mg/dL LAB CHEMISTRY METHOD 10/04/2024 1:26 PM [facility] eGFR 80 >=60 mL/min/1. 73m2 LAB CHEMISTRY METHOD 10/04/2024 1:26 PM [facility] Comment:Calculation based on the??Chronic Kidney Disease Epidemiology Collaboration (CKD-EPI) equation refit??without adjustment for race. BUN/Creatinine Ratio 24.0 LAB CHEMISTRY METHOD 10/04/2024 1:26 PM [facility] Calcium 10.4 8.5 - 10.5 mg/dL LAB CHEMISTRY METHOD 10/04/2024 1:26 PM [facility] AST (SGOT) 15 10 - 42 unit/L LAB CHEMISTRY METHOD 10/04/2024 1:26 PM [facility] ALT (SGPT) 33 10 - 60 unit/L LAB CHEMISTRY METHOD 10/04/2024 1:26 PM [facility] Alkaline Phosphatase 46 42 - 121 unit/L LAB CHEMISTRY METHOD 10/04/2024 1:26 PM [facility] Total Protein 6.8 6.0 - 8.0 g/dL LAB CHEMISTRY METHOD 10/04/2024 1:26 PM [facility] Albumin 3.9 3.2 - 5.0 g/dL LAB CHEMISTRY METHOD 10/04/2024 1:26 PM [facility] Total Bilirubin 1.1 0.0 - 1.4 mg/dL LAB CHEMISTRY METHOD 10/04/2024 1:26 PM [facility] Blood Venous blood specimen / Unknown Venipuncture / Unknown 10/04/2024 12:28 PM EST 10/04/2024 12:35 PM EST us Hola Rivas MD LAB BLOOD ORDERABLES Final Re sult [facility] [address] [place] [address], [place] [phone] from Last 3 Months or Most Recently Relevant to Health Maintenance Insurance MEDICA[place] - [place] MEDICARE Care Teams Rn Endoscopy Relationship Specialty Start Date End Date Magalie Mars MD [address] [phone] PCP - General 11/27/23
--- OUTSIDE RECORDS SUMMARY | 2025-01-21 15:44 | XMS_ITS | Encounter Summary ---
Author Organization [employer] Address [address] [facility] [address] [place] [address] Care Team Providers Care Bone Drier Name Role Phone Magalie Mars MD Primary Care Provider + Reason for Visit * Reason Comments [facility] Recovery Supports Encounter Details Date Type Department Care Team (Late st Contact Info) Description 01/07/2025 Patient Outreach [facility] MEDICINE 230 [place], [place] [phone] Adriel Martini 230 [place] [address] Recovery Supports Social History Tobacco Use Types Packs/Day Years [...] AM EDT documented as of this encounter Progress Notes * Ardiel Martini - 01/07/2025 3:18 PM EST I met with Fitz today. Setting: in person at [facility] Recovery Wellness Goals worked on: Physical Health/Mental Health, Social Stability, and Spiritual Wellness Action taken/next steps: Attended recovery support group Additional comments: Participant attended a group session centered on recovery topics, where members engaged in open discussion and offered mutual support. Adriel Martini documented in this encounter Plan of Treatment Upcoming Encounters Date Type Department Care Team (Late st Contact Info) Description 01/24/2025 2:00 PM EDT Clinical Support [facility] DIABETES/NUTRITION [address] [place] [phone] [place] [address] 02/14/2025 11:00 AM EDT Office Visit [facility] MEDICINE [address] [place] [phone] Taiwo Hicks MD 230 [place] [address] 02/26/2025 10:00 AM EDT Office Visit [facility] MEDICINE 230 [place] [address] Magalie Mars MD 230 [place] [address] 03/06/2025 3:30 PM EDT Office Visit [facility] OPTOMETRY [address] [place], [place] [phone] Frankie, Skye, OD 230 [place] [address] documented as of this encounter Visit Diagnoses Not on filedocumented in this encounter Additional Health Concerns Assessment Noted Time PHQ-9 Depression Total Score: 0 11/28/19 25 9:38 AM EST documented as of this encounter Care Teams Bone Drier Relationship Specialty Start Date End Date Magalie Mars MD [address] [place] [phone] PCP - General Family Medicine 01/22/21 documented as of this encounter
--- OUTSIDE RECORDS SUMMARY | 2025-01-21 15:44 | XMS_ITS | Encounter Summary ---
Author Organization [employer] Address [address] [place] [address] 7t [place] [address] Care Team Providers Care Shiatsu Therapist Name Role Phone Magalie Mars MD Primary Care Provider + Reason for Visit * Reason Comments AUD F/U Encounter Details Date Type Department Care Team ([facility] st Contact Info) Description 01/17/2025 11:00 AM EDT Office Visit [facility] MEDICINE 230 [place], [place] [phone] Taiwo Hicks MD 230 [place], [place] [phone] Alcohol use disorder, severe, in early remission (CMS/HCC) (Primary Dx) Social History Tobacco Use Types Packs/Day Years [...] the past 12 months, has t he [employer], gas, oil or water company threatened to [...] as of this encounter Progress Notes * Taiwo Hicks MD - 01/17/2025 11:00 AM EDT Patient ID: Fitz Duran is a 64 y.o. adult who presents for follow up for alcohol use disorder. 12/06/24 Utox Neg BAL 0 Continues to do well. 4-5 meeting a week. Lutheran twice a week. Continues working with his sponsor and the [employer] @ [facility]. Now working on step 4 (resentments). Gym M-Fr and started martial arts class. Feel good. Working with a colorer hides and skins here. Blood sugars doing very well. Continues naltrexone-feels it helps. No ADRs Continues to do well. Engaged in his recovery. Congratulated on his effort. F/U 4 weeks. Today 01/17/25 Doing very well. Recovery intact. 01/24 will be 6 months. He is not complacent or cocky. Daily meetings, working the 12 steps, on # 4. Regular contact with his sponsor. Continues going to the gym as noted last visit. Does not smoke. Still seeing [facility] colorer hides and skins. Close to his weight goal. A1c now 5.9 Objective Physical Exam Constitutional: Appearance: Normal appearance. Neurological: Mental Status: Fitz is alert and oriented to person, place, and time. Psychiatric: Mood and Affect: Mood normal. Behavior: Behavior normal. Thought Content: Thought content normal. Assessment/Plan Alcohol use disorder, severe, in early remission (CMS/HCC) Doing very well. Recovery intact. 01/24 will be 6 months. He is not complacent or cocky. Daily meetings, working the 12 steps, on # 4. Regular contact with his sponsor. Continues going to the gym as noted last visit. Does not smoke. Still seeing [facility] colorer hides [employer] skins. Close to his weight goal. A1c now 5.9 ------ Continues to do well. Very active in his recovery. Continues naltrexone. Thinks it's helping. Would like to f/u in 4 weeks. Discuss changing visit interval at that time. Diagnoses and all orders for this visit: Alcohol use disorder, severe, in early remission (CMS/HCC) This information has been disclosed to you from records protected by federal confidentiality rules(42 CFR Part 2). The federal rules prohibit you from making any further disclosure of information in this record that identifies a patient as having or having had a substance use disorder either directly, by reference to publicly available information, or through verification of such identificationby another person unless further disclosure is expressly permitted by the written consent of the individual whose information is being disclosed or as otherwise permitted by (see 2.3.1). The federal rules restrict any use of the information to investigate or prosecute with regard to a crime any patient with a substance use disorder, except as provided at 2.12??(5) and 2.65. documented in this encounter Plan of Treatment Upcoming Encounters Date Type Department Care Team (Late st Contact Info) Description 01/24/2025 2:00 PM EDT Clinical Support [facility] DIABETES/NUTRITION 230 [place] [address] Ruby Garcia, TRISHA 230 [place] [address] 02/14/2025 11:00 AM EDT Office Visit [facility] MEDICINE 230 [place] [address] Taiwo Hicks MD 230 [place] [address] 02/26/2025 10:00 AM EDT Office Visit [facility] MEDICINE 230 [place] [address] Magalie Mars MD 230 [place] [address] 03/06/2025 3:30 PM EDT Office Visit [facility] OPTOMETRY [address] [place] [address] FrankieSkye cid, OD 230 [place] [address] documented as of this encounter Visit Diagnoses Diagnosis Alcohol use disorder, severe, in early remission (CMS/HCC)- Primary documented in this encounter Additional Health Concerns Assessment Noted Time PHQ-9 Depression Total Score: 0 11/28/19 25 9:38 AM EST documented as of this encounter Care Teams Shiatsu Therapist Relationship Specialty Start Date End Date Magalie Mars MD 230 [place] [address] PCP - General Family Medicine 01/22/21 documented as of this encounter
--- OUTSIDE RECORDS SUMMARY | 2025-01-21 15:44 | XMS_ITS | Patient Health Record ---
Author Organization [facility] Address [address] [place], [place] [phone] Care Team Providers Care Electric Deicer Inspector Name Role Phone [facility] Primary Care Provider Elena Faith Miller Unavailable [phone] Reason For Referral No Information Plan Of Treatment No Information Insurance Providers Payer Name Payer Address Payer Phone Subscriber Number Group Number Insured Name Patient Relationship to Insured Coverage Start Date Coverage End Date ID Medicaid Standard [address] [place] [address] [phone] [id number] Fitz Duran Self - patient is the insured
== END 2025-01-21 14:03 | disposition home or self-care (01) ==
LOC: HO.HUSH 13:23
PROVIDERS: PCP Internal Medicine; Visit Provider Nurse Practitioner Family
DX: E11.69 Type 2 diabetes mellitus with other specified complication (principal); N52.1 Erectile dysfunction due to diseases classified elsewhere; Z13.9 Encounter for screening, unspecified
CPT/HCPCS: 99213

== ENCOUNTER → 2025-01-21 13:22 | Outpatient (BNVA) | payer MEDICAID, SELFPAY | PROVIDERS: PCP Internal Medicine; Visit Provider Nurse Practitioner Family | DX: E11.69 Type 2 diabetes mellitus with other specified complication (principal); N52.1 Erectile dysfunction due to diseases classified elsewhere | CPT/HCPCS: 81003; 99212 ==

== ENCOUNTER 2025-04-14 11:34 | Outpatient (REF) | payer MEDICAID, SELFPAY ==
--- OUTSIDE RECORDS SUMMARY | 2025-04-14 13:17 | XMS_ITS | Clinical Summary ---
Author Organization 175 [facility] Address 175 [place] [address] Phone Care Team Providers Care Computer Console Operator Name Role Phone Magalie Mars MD Primary Care Provider + [phone] Allergies Active Allergy Reactions Criticality Noted Date [...] Encounters Date Type Department Care Team Description 02/03/2025 2:30 PM EDT Office Visit Orthopedic Surgery [facility] 250 175 [facility] [address] [place] [phone] Robin Ayala, DPM Primary osteoarthritis of both feet (Primary Dx); Diabetic mononeuropathy simplex (CMS/HCC V24, CMS/HCC V28); Bilateral foot pain from Last 3 Months Medical History Medical [...] - - Weight 96.2 kg (212 lb) 02/03/2025 2:11 PM EDT Height 170.2 cm (5' 7.01 ) 11/04/2024 3:05 PM ES T Body Mass Index 33.2 11/04/2024 3:05 PM EST Plan of Treatment Upcoming Encounters Date Type Department Care Team (Late st Contact Info) Description 05/12/2025 10:00 AM EDT Office Visit Orthopedic Surgery - [place] [address] [phone] Robin Ayala, DPM [address] [address] Health Maintenance Due Date Last Done Comments Diabetes: Annual Foot Exam 02/28/1970 Diabetes: Annual Retina Eye Exam 02/28/1970 Zoster Vaccines (1 of 2) 02/28/2010 RSV Immunization Adult Patients (1 - Risk 60-74 years 1-dose series) 2020 Cholesterol Screening (Lipid Panel) 10/09/2022 Colorectal Cancer Screening: Colonoscopy 10/09/2022 Medicare Annual Wellness Visit 10/09/2022 Social Influencers of Health Screening 10/09/2022 COVID-19 Vaccine ( season) 2024 02/08/2021 Diabetes: Annual Urine Albumin-Creatinine Ratio (uACR) 08/15/2024 Falls Risk Assessment 02/28/2025 Diabetes: Blood Sugar Control Test (HGBA1C) 05/28/2025 11/28/2024, 06/24/2024 Influenza Vaccine (Season Ended) 2025 09/05/2018, 09/06/2016, 07/20/2012 Diabetes: Annual GFR (Glomerular Filtration Rate) 10/04/2025 10/04/2024, 08/05/2024 Hypertension/CHF/CAD Annual BMP Blood Test 10/04/2025 10/04/2024, 08/05/2024 Depression Screening 11/28/2025 11/28/2024 DTaP,Tdap,and Td Vaccines (4 - Td or Tdap) 11/28/2034 11/28/2024, 05/23/2012, 05/04/2011 Hepatitis A Vaccines Completed 12/08/2016, 06/02/20 16 Hepatitis B Vaccines Completed 12/08/2016, 07/14/2016, 06/02/2016, Additional history exists Pneumococcal Vaccine: 50+ Years Completed 11/24/2023, 01/27/2017 Pneumococcal Vaccine: Pediatrics (0 to 5 Years) and At-Risk Patients (6 to 64 Years) Completed 11/24/2023, 01/27/2017 Hepatitis C Screening Completed 08/05/2024 HIB Vaccines [...] age to complete this topic Meningococcal B Vaccine Aged Out No l onger eligible based on patient's age to complete this topic RSV Immunization Patients Under 20 months Aged Out No longer eligible based on patient's age to complete this topic Varicella Vaccines Aged Out No longer eligible based on patient's age to complete this topic Procedures Procedure Name Priority Date/Time Associated Diagnosis Comments COMPREHENSIVE METABOLIC PANEL Routine 10/04/2024 12:28 PM EST 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, in remission ([facility] V24, [facility] V28) from Last 3 Months or Most Recently Relevant to Health Maintenance Results * (ABNORMAL) Comprehensive metabolic panel (10/04/2024 12:28 PM EST) Sodium 137 133 - 145 mmol/L LAB CHEMISTRY METHOD 10/04/2024 1:26 PM EST [facility] Potassium 4.7 3.5 - 5.5 mmol/L LAB CHEMISTRY METHOD 10/04/2024 1:26 PM EST [facility] Chloride 105 96 - 110 mmol/L LAB CHEMISTRY METHOD 10/04/2024 1:[address] [facility] CO2 28 21 - 32 mmol/L LAB CHEMISTRY METHOD 10/04/2024 1:[address] [facility] Anion Gap 4 3 - 11 LAB CHEMISTRY METHOD 10/04/2024 1:[address] [facility] Glucose 104(H) 70 - 100 mg/dL LAB CHEMISTRY METHOD 10/04/2024 1:[address] [facility] BUN 25 5 - 25 mg/dL LAB CHEMISTRY METHOD 10/04/2024 1:[address] [facility] Creatinine 1.04 0.70 - 1.30 mg/dL LAB CHEMISTRY METHOD 10/04/2024 1:[address] [facility] eGFR 80 >=60 mL/min/1. 73m2 LAB CHEMISTRY METHOD 10/04/2024 1:[address] [facility] Comment:Calculation based on the??Chronic Kidney Disease Epidemiology Collaboration (CKD-EPI) equation refit??without adjustment for race. BUN/Creatinine Ratio 24.0 LAB CHEMISTRY METHOD 10/04/2024 1:[address] [facility] Calcium 10.4 8.5 - 10.5 mg/dL LAB CHEMISTRY METHOD 10/04/2024 1:[address] [facility] AST (SGOT) 15 10 - 42 unit/L LAB CHEMISTRY METHOD 10/04/2024 1:[address] [facility] ALT (SGPT) 33 10 - 60 unit/L LAB CHEMISTRY METHOD 10/04/2024 1:[address] [facility] Alkaline Phosphatase 46 42 - 121 unit/L LAB CHEMISTRY METHOD 10/04/2024 1:[address] [facility] Total Protein 6.8 6.0 - 8.0 g/dL LAB CHEMISTRY METHOD 10/04/2024 1:[address] [facility] Albumin 3.9 3.2 - 5.0 g/dL LAB CHEMISTRY METHOD 10/04/2024 1:26 PM EST [facility] Total Bilirubin 1.1 0.0 - 1.4 mg/dL LAB CHEMISTRY METHOD 10/04/2024 1:26 PM EST [facility] Blood Venous blood specimen / Unknown Venipuncture / Unknown 10/04/2024 12:28 PM EST 10/04/2024 12:35 PM EST us Hola Rivas MD LAB BLOOD ORDERABLES Final Re sult [facility] [address] [place] [address], from Last 3 Months or Most Recently Relevant to Health Maintenance Insurance [place] - [place]ICARE Care Teams Computer Console Operator Relationship Specialty Start Date End Date Magalie Mars MD [address] [place] [phone] PCP - General 11/27/23
[2025-04-14 13:50] LABS: Alanine Aminotransferase 52 U/L (0-40); Albumin Level 4.7 g/dL (3.5-5.0); Alkaline Phosphatase 43 U/L (39-117); Anion Gap 10 (12-20); Aspartate Amino Transferase 30 U/L (5-37); Bilirubin Total 0.6 mg/dL (0.0-1.0); Blood Urea Nitrogen 24 mg/dL (9-16); Calcium 10.4 mg/dL (8.4-10.2); Carbon Dioxide 30 mmol/L (22-29); Chloride 103 mmol/L (96-108); Cholesterol 220 mg/dL (<200); Estimated Glomerular Filt Rate > 60; Glucose Random 124 mg/dL (60-115); HDL Cholesterol 41 mg/dL (>40); LDL Cholesterol Calculated 149 mg/dL (<100); Potassium 4.9 mmol/L (3.3-5.1); Sodium 138 mmol/L (135-145); Total Protein 7.4 g/dL (6.5-8.0); Triglycerides 152 mg/dL (<150)
[2025-04-14 14:02] LABS: Prostate Specific Antigen 2.07 ng/mL (<0.05-4.0)
[2025-04-14 14:14] LABS: TSH reflex Free T4 1.62 uIU/mL (0.32-4.0)
[2025-04-14 14:21] LABS: Reflex LDLD? No
[2025-04-18 18:38] LABS: Testosterone, Free 66.8 pg/mL (35.0-155.0); Testosterone, Total 369 ng/dL (250-1100)
[2025-04-21 12:37] LABS: FIB-ALT 37 U/L (9-46); FIB-Alpha-2-Macroglobulin 212 mg/dL (106-279); FIB-Apolipoprotein A1 157 mg/dL (94-176); FIB-GGT 19 U/L (3-70); FIB-Haptoglobin 96 mg/dL (43-212); FIB-Total Bilirubin 0.5 mg/dL (0.2-1.2); Liver Fibrosis Stage F1; Nec Inflam Act Grade A0-A1
== END 2025-04-14 11:35 | disposition home or self-care (01) ==
LOC: HO.HHCL 11:34
PROVIDERS: Internal Medicine; Nurse Practitioner Family; Visit Provider Emergency Medicine
DX: E11.65 Type 2 diabetes mellitus with hyperglycemia (principal); R68.82 Decreased libido; N52.1 Erectile dysfunction due to diseases classified elsewhere; F10.21 Alcohol dependence, in remission; E78.2 Mixed hyperlipidemia
CPT/HCPCS: 36415; 80053; 80061; 81596; 84153; 84402; 84403; 84443

== ENCOUNTER 2025-04-14 12:30 | Outpatient (REF) | payer MEDICAID, SELFPAY ==
[2025-04-14 13:41] LABS: Anion Gap 12 (12-20); Blood Urea Nitrogen 24 mg/dL (9-16); Calcium 10.5 mg/dL (8.4-10.2); Carbon Dioxide 29 mmol/L (22-29); Chloride 103 mmol/L (96-108); Cholesterol 222 mg/dL (<200); Estimated Glomerular Filt Rate > 60; Glucose Random 118 mg/dL (60-115); HDL Cholesterol 41 mg/dL (>40); LDL Cholesterol Calculated 151 mg/dL (<100); Potassium 4.6 mmol/L (3.3-5.1); Sodium 139 mmol/L (135-145); Triglycerides 154 mg/dL (<150)
[2025-04-14 13:59] LABS: Prostate Specific Antigen 2.17 ng/mL (<0.05-4.0)
[2025-04-14 14:41] LABS: Reflex LDLD? No
[2025-04-18 23:03] LABS: Testosterone, Free 71.9 pg/mL (35.0-155.0); Testosterone, Total 404 ng/dL (250-1100)
== END 2025-04-14 12:31 | disposition home or self-care (01) ==
LOC: HO.10HDL 12:30
PROVIDERS: Internal Medicine; Visit Provider Nurse Practitioner Family
DX: E11.65 Type 2 diabetes mellitus with hyperglycemia (principal); I10 Essential (primary) hypertension; E11.69 Type 2 diabetes mellitus with other specified complication; N52.1 Erectile dysfunction due to diseases classified elsewhere; R68.82 Decreased libido
CPT/HCPCS: 36415; 80048; 80061; 84153; 84402; 84403

== ENCOUNTER 2025-04-24 13:42 | Outpatient (AMB) | payer MEDICAID, SELFPAY ==
--- NOTE | 2025-04-24 13:55 | A.OFFVIS_ITS ---
Intake Visit Reasons: 3m/Testo/PSA Intake Note: Patient presents to office today for follow up/ PSA & testosterone free and total psa:2.17 Testosterone total :404 testosterone free:71.9 Urology Medications: Tadalafil Blood Thinner: Eliquis Allergy to Antibiotics: none Diabetic: yes On Site Wastewater Systems Technician Required: No Accompanied by: Self / Same As Patient Allergies Iodinated Contrast Media Adverse Reaction (Severe, Verified 01/21/25 14:47) Swelling Medication List - Last Reconciled 04/24/25 by PATRICE Francis albuterol sulfate 90 mcg/actuation (ProAir HFA) 2 puffs inhalation QID apixaban (Eliquis) 5 mg PO BID blood pressure test kit-large As directed blood sugar diagnostic (FreeStyle Lite Strips) As directed blood-glucose meter (FreeStyle [place] Lite kit) As directed cetirizine 10 mg PO QAM fluticasone propionate 50 mcg/actuation 2 sprays intranasal DAILY gabapentin 300 mg PO BEDTIME guanfacine 1 mg PO DAILY lancets (TRUEplus Lancets) As directed lisinopril 10 mg PO DAILY metformin ER 750 mg PO BID mirtazapine 45 mg PO BEDTIME [id number] mcg (Centrum [place] Men) 1 tab PO DAILY tadalafil (Cialis) 20 mg PO DAILY PRN 90 days tadalafil (Cialis) 5 mg PO DAILY 90 days zolpidem (Ambien) 10 mg PO BEDTIME HPI Comments Details: Fitz is a very pleasant 65-year-old Mongolian male patient of Dr. Mars. He has a PMH of costochondritis, hypertension, ETOH abuse, diabetes, and asthma. He presents to the office today for follow-up of his ED. In discussion with the patient today he reports to be doing and feeling well. He discusses at length his sobriety over the last 10 months. He reports feeling significant improvement in overall health and well-being. He discusses continuing to eat well and goes to the gym daily. He reports compliance with daily dosing of tadalafil as well as p.r.n. dosing and feels this has been helpful in maintaining his erections. He currently denies any bothersome urinary issues. He denies urinary urgency, urinary frequency, incontinence, nocturia, hematuria, dysuria, foul smelling urine, changes to urinary stream, flank pain, fever, and or chills. Recent lab results were reviewed with the patient today as noted and trended below. All questions were answered. He otherwise offers no other issues or concerns at this time. PSA: 02/27 3.0, 06/29 2.7, 07/30 0.7, 04/30 2.2 Testosterone: 08/23 600, 02/27 537, 04/30 404 [facility] Medical History Costochondritis (Unknown) HTN (hypertension) Thrombosis ETOH abuse Diabetes Asthma Surgical History Hx of colonoscopy (~11/2018) Social History Household Members: Friend(s) Housing: House Alcohol intake: former Patient Tobacco Use Status: Never used Tobacco service: No Current occupational status: unemployed Review of Systems Const Reports as per HPI Eyes Reports no additional complaints ENT Reports no additional complaints Card Reports no additional complaints Resp Reports as per HPI GI Reports as per HPI Reports as per HPI Musc Reports no additional complaints Neuro Reports as per HPI Psych Reports no additional complaints Endo Reports as per HPI Physical Exam Const General: cooperative, healthy appearing, comfortable, no acute distress, well developed, alert and awake Nutritional Appearance: overweight Orientation/consciousness: patient oriented x3 Limitations: no limitations HEENT Head: Yes normal to inspection, Yes normocephalic and Yes atraumatic Ears: hearing grossly normal bilaterally Eyes General: appearance normal, both eyes and all related structures Neck Neck: Yes normal visual inspection and Yes trachea midline Chest Chest palpation & inspection: normal inspection of the chest Resp Effort & Inspection: normal respiratory effort and able to speak in complete sentences Cardio Rate: regular rate GI Inspection: Yes normal to inspection General: Yes no CVA tenderness Back/Spine/Pelvis Back: no CVA tenderness Skin General skin exam: no rashes or lesions noted Neuro General: patient oriented x3 Extrem General: Yes normal to inspection Psych Appearance: grossly normal and well kempt Mental Status: mental status grossly normal Speech and movement: Normal speech and movement present and Clear speech present Affect: normal affect Attitude: cooperative Thought process: Normal thought process present Thought content: Normal thought content present Insight: Fair insight present (Psych) Judgement: Fair judgement present (Psych) Assessment & Plan Assessment & Plan (1) Erectile dysfunction associated with type 2 diabetes mellitus: Code(s): E11.69 - Type 2 diabetes mellitus with other specified complication; N52.1 - Erectile dysfunction due to diseases classified elsewhere Category: Medical (2) Low libido: Code(s): R68.82 - Decreased libido Category: Medical Plan In office urinalysis results reviewed with the patient today; as noted above. Recent labs results were reviewed with the patient today; as noted above. He currently denies any bothersome urinary issues or concerns. He reports be happy with current voiding parameters. Will continue with daily dosing of tadalafil with p.r.n. dosing; refill provided. Will continue with surveillance monitoring. Follow-up in 6 months; or sooner with any issues, concerns, and or questions. Orders: Orders AMB Urinalysis Automated Today Z13.9 - Encounter for screening, unspecified Medications: Refilled tadalafil (Cialis) [id number] [facility] [id number] Member [id number] 5 mg PO DAILY 90 tabs 3RF 90 days tadalafil (Cialis) [id number] [facility] [id number] Member [id number] 20 mg PO DAILY PRN 45 tabs 3RF sexual activity 90 days Patient Instructions: The patient had an opportunity to ask questions regarding the treatment plan. All questions were answered. Physical exam, labs, and imaging were discussed and reviewed in detail. As well as risks, benefits, and discussion of treatment choices. No major barriers to understanding were identified. The patient expressed understanding and agreement with the above treatment plan. The patient was made aware they should contact our office by phone for worsening of their current condition, the appearance of new symptoms, or with any questions or concerns. Compliance is encouraged with any medications and follow up testing that is ordered. It is a privilege to be allowed the opportunity to participate in? your urological care.? Again, if you have any questions or concerns If you have any questions or concerns please do not hesitate to contact me. The office is [phone]. This note is constructed using voice recognition software. While every effort has been made to ensure accuracy plate drying machine tender errors may have been included. Yours sincerely, PATRICE Francis Coding Level of Care Code Est Pt Level 3 (05439) Complex EM visit Add On G2211 Diagnoses Erectile dysfunction associated with type 2 diabetes mellitus E11.69; N52.1 Low libido R68.82
--- OUTSIDE RECORDS SUMMARY | 2025-04-24 14:54 | XMS_ITS | Clinical Summary ---
Author Organization 175 [facility] Address 175 [place] [address] Phone Care Team Providers Care Stem Sizer Name Role Phone Magalie Mars MD Primary Care Provider + [phone] Allergies Active Allergy Reactions Criticality Noted Date [...] 2:30 PM EDT Office Visit Orthopedic Surgery [facility] 250 175 [facility] [address] [place] [phone] oRbin Ayala, DPM Primary osteoarthritis of both feet [...] AM EDT Office Visit Orthopedic Surgery - [place] [address] [phone] Robin Ayala, DPM [address] [address] Health Maintenance Due Date Last Done Comments [...] 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, in remission ([facility] V24, [facility] V28) from Last 3 Months or Most Recently Relevant to Health Maintenance Results * (ABNORMAL) Comprehensive metabolic panel (10/04/2024 12:28 PM EST) Sodium 137 133 - 145 mmol/L LAB CHEMISTRY METHOD 10/04/2024 1:26 PM EST [facility] Potassium 4.7 3.5 - 5.5 mmol/L LAB CHEMISTRY METHOD 10/04/2024 1:26 PM EST [facility] Chloride 105 96 - 110 mmol/L LAB CHEMISTRY METHOD 10/04/2024 1:[address] [facility] CO2 28 21 - 32 mmol/L LAB CHEMISTRY METHOD 10/04/2024 1:[address] [facility] Anion Gap 4 3 - 11 LAB CHEMISTRY METHOD 10/04/2024 1:[address] [facility] Glucose 104(H) 70 - 100 mg/dL LAB CHEMISTRY METHOD 10/04/2024 1:[address] [facility] BUN 25 5 - 25 mg/dL LAB CHEMISTRY METHOD 10/04/2024 1:[address] [facility] Creatinine 1.04 0.70 - 1.30 mg/dL LAB CHEMISTRY METHOD 10/04/2024 1:[address] [facility] eGFR 80 >=60 mL/min/1. 73m2 LAB CHEMISTRY METHOD 10/04/2024 1:[address] [facility] Comment:Calculation based on the Chronic Kidney Disease Epidemiology Collaboration (CKD-EPI) equation refit without adjustment for race. BUN/Creatinine Ratio 24.0 LAB CHEMISTRY METHOD 10/04/2024 1:[address] [facility] Calcium 10.4 8.5 - 10.5 mg/dL LAB CHEMISTRY METHOD 10/04/2024 1:[address] [facility] AST (SGOT) 15 10 - 42 unit/L LAB CHEMISTRY METHOD 10/04/2024 1:[address] [facility] ALT (SGPT) 33 10 - 60 unit/L LAB CHEMISTRY METHOD 10/04/2024 1:[address] [facility] Alkaline Phosphatase 46 42 - 121 unit/L LAB CHEMISTRY METHOD 10/04/2024 1:[address] [facility] Total Protein 6.8 6.0 - 8.0 g/dL LAB CHEMISTRY METHOD 10/04/2024 1:[address] [facility] Albumin 3.9 3.2 - 5.0 g/dL LAB CHEMISTRY METHOD 10/04/2024 1:26 PM EST [facility] Total Bilirubin 1.1 0.0 - 1.4 mg/dL LAB CHEMISTRY METHOD 10/04/2024 1:26 PM EST [facility] Blood Venous blood specimen / Unknown Venipuncture / Unknown 10/04/2024 12:28 PM EST 10/04/2024 12:35 PM EST Hola Rivas MD LAB BLOOD ORDERABLES Final Re sult [facility] ([facility]) [facility] [address] [place] [address], from Last 3 Months or Most Recently Relevant to Health Maintenance Insurance [place]ICA[place] - [place]ICARE Care Teams Stem Sizer Relationship Specialty Start Date End Date Magalie Mars MD [address] [place] [phone] PCP - General 11/27/23
== END 2025-04-24 14:52 | disposition home or self-care (01) ==
LOC: HO.HUSH 13:42
PROVIDERS: PCP Internal Medicine; Visit Provider Nurse Practitioner Family
DX: E11.69 Type 2 diabetes mellitus with other specified complication (principal); N52.1 Erectile dysfunction due to diseases classified elsewhere; R68.82 Decreased libido; Z13.9 Encounter for screening, unspecified
CPT/HCPCS: 99213

== ENCOUNTER → 2025-04-24 13:42 | Outpatient (BNVA) | payer MEDICAID, SELFPAY | PROVIDERS: PCP Internal Medicine; Visit Provider Nurse Practitioner Family | DX: E11.69 Type 2 diabetes mellitus with other specified complication (principal); N52.1 Erectile dysfunction due to diseases classified elsewhere; R68.82 Decreased libido | CPT/HCPCS: 81003; 99212 ==

== ENCOUNTER 2025-10-21 14:27 | Outpatient (AMB) | payer MEDICARE, MEDICAID, SELFPAY ==
--- NOTE | 2025-10-21 14:29 | MHC.OFFVIS ---
Intake Visit Reasons: 6m/UA Intake Note: Patient is present for 6M/UA Urology Medication:NONE Antibiotic Allergy:NONE Blood Thinner:APIXABAN Inspector Canned Food Reconditioning Required: No Allergies Iodinated Contrast Media Adverse Reaction (Severe, Verified 10/21/25 15:05) Swelling Medication List - Last Reconciled 10/21/25 by PATRICE Francis No Known Home Meds HPI Comments Details: Fitz is a very pleasant 65-year-old male patient of Dr. Mars. He has a PMH of costochondritis, hypertension, ETOH abuse, diabetes, and asthma. He presents to the office today for follow-up of his ED. In discussion with the patient today he reports to be doing and feeling well. He discusses at length his sobriety over the last 18 months. He reports feeling significant improvement in overall health and well-being. He discusses continuing to eat well and goes to the gym daily. He reports compliance with daily dosing of tadalafil . He reports he has not utilize p.r.n. dosing as he is not sexual active at this time. He currently denies any bothersome urinary issues. He denies urinary urgency, urinary frequency, incontinence, nocturia, hematuria, dysuria, foul smelling urine, changes to urinary stream, flank pain, fever, and or chills. Recent lab results were reviewed with the patient today as noted and trended below. All questions were answered. He otherwise offers no other issues or concerns at this time. PSA: 02/27 3.0, 06/29 2.7, 07/30 0.7, 04/30 2.2 Testosterone: 08/23 600, 02/27 537, 04/30 404 [facility] Medical History Costochondritis (Unknown) HTN (hypertension) Thrombosis ETOH abuse Diabetes Asthma Surgical History Hx of colonoscopy (~11/2018) Social History Household Members: Friend(s) Housing: House Alcohol intake: former Patient Tobacco Use Status: Never used Tobacco service: No Current occupational status: unemployed Review of Systems Const Reports as per HPI Eyes Reports no additional complaints ENT Reports no additional complaints Card Reports no additional complaints Resp Reports as per HPI GI Reports as per HPI Reports as per HPI Musc Reports no additional complaints Neuro Reports as per [facility] Psych Reports no additional complaints Endo Reports as per HPI Physical Exam Const General: cooperative, healthy appearing, comfortable, no acute distress, well developed, alert and awake Nutritional Appearance: overweight Orientation/consciousness: patient oriented x3 Limitations: no limitations HEENT Head: Yes normal to inspection, Yes normocephalic and Yes atraumatic Ears: hearing grossly normal bilaterally Eyes General: appearance normal, both eyes and all related structures Neck Neck: Yes normal visual inspection and Yes trachea midline Chest Chest palpation & inspection: normal inspection of the chest Resp Effort & Inspection: normal respiratory effort and able to speak in complete sentences Cardio Rate: regular rate GI Inspection: Yes normal to inspection General: Yes no CVA tenderness Back/Spine/Pelvis Back: no CVA tenderness Skin General skin exam: no rashes or lesions noted Neuro General: patient oriented x3 Extrem General: Yes normal to inspection Psych Appearance: grossly normal and well kempt Mental Status: mental status grossly normal Speech and movement: Normal speech and movement present and Clear speech present Affect: normal affect Attitude: cooperative Thought process: Normal thought process present Thought content: Normal thought content present Insight: Fair insight present (Psych) Judgement: Fair judgement present (Psych) Assessment & Plan Assessment & Plan (1) Erectile dysfunction associated with type 2 diabetes mellitus: Code(s): E11.69 - Type 2 diabetes mellitus with other specified complication; N52.1 - Erectile dysfunction due to diseases classified elsewhere Category: Medical (2) Low libido: Code(s): R68.82 - Decreased libido Category: Medical Plan In office urinalysis results reviewed with the patient today; as noted above. Recent labs results were reviewed with the patient today; as noted above. He currently denies any bothersome urinary issues or concerns. He reports be happy with current voiding parameters. Will continue with daily dosing of tadalafil with p.r.n. dosing; refill provided. Will continue with surveillance monitoring. Will obtain PSA and testosterone in 6 months Follow-up in 6 months with labs to be completed prior; or sooner with any issues, concerns, and or questions. Orders: Orders Prostate Specific Antigen 6 Months - Type 2 diabetes mellitus with other specified complication, N52.1 - Erectile dysfunction due to diseases classified elsewhere Testosterone, Free/Total 6 Months E11.69 - Type 2 diabetes mellitus with other specified complication, N52.1 - Erectile dysfunction due to diseases classified elsewhere Medications: Refilled tadalafil (Cialis) [id number] [facility] [id number] Member [id number] 5 mg PO DAILY 90 tabs 3RF 90 days Patient Instructions: The patient had an opportunity to ask questions regarding the treatment plan. All questions were answered. Physical exam, labs, and imaging were discussed and reviewed in detail. As well as risks, benefits, and discussion of treatment choices. No major barriers to understanding were identified. The patient expressed understanding and agreement with the above treatment plan. The patient was made aware they should contact our office by phone for worsening of their current condition, the appearance of new symptoms, or with any questions or concerns. Compliance is encouraged with any medications and follow up testing that is ordered. It is a privilege to be allowed the opportunity to participate in? your urological care.? Again, if you have any questions or concerns If you have any questions or concerns please do not hesitate to contact me. The office is [phone]. This note is constructed using voice recognition software. While every effort has been made to ensure accuracy medical surgery nurse errors may have been included. Yours sincerely, PATRICE Francis Coding Level of Care Code Est Pt Level 3 (92097) Add On Problem Visit Only Diagnoses Erectile dysfunction associated with type 2 diabetes mellitus E11.69; N52.1 Low libido R68.82
--- OUTSIDE RECORDS SUMMARY | 2025-10-21 18:44 | XMS_ITS | Clinical Summary ---
Author Organization 175 [facility] Address 175 [place] [address] Phone Care Team Providers Care Leveler Helper Name Role Phone Magalie Mars MD Primary Care Provider + [phone] Allergies Active Allergy Reactions Criticality Noted Date [...] Encounters Date Type Department Care Team Description 08/12/2025 9:15 AM EDT Office Visit Orthopedic Surgery [facility] 250 175 [facility] [address] [place] [phone] Robin Ayala, DPM Primary osteoarthritis of both feet (Primary Dx); Diabetic mononeuropathy simplex (CMS/HCC V24, CMS/HCC V28) from Last 3 Months Medical History Medical [...] on file Sexual Orientation Not on file Last Filed Vital Signs Vital Sign Reading [...] Care Team (Late st Contact Info) Description 11/12/2025 9:00 AM EST Office Visit Orthopedic Surgery - [place] [address] [phone] Robin Ayala, FELIPE [address] [phone] Health Maintenance Due Date Last Done Comments Colorectal Cancer Screening: Colonoscopy 1960 Diabetes: Annual Foot Exam 02/28/1970 Diabetes: Annual Retina Eye Exam 02/28/1970 RSV Immunization Adult Patients (1 - Risk 50-74 years 1-dose series) 02/28/2010 Zoster Vaccines (1 of 2) 02/28/2010 Cholesterol Screening (Lipid Panel) 10/09/2022 Medicare Annual Wellness Visit 10/09/2022 Social Influencers of Health Screening 10/09/2022 Diabetes: Annual Urine Albumin-Creatinine Ratio (uACR) 08/15/2024 Depression Screening 11/06/2024 Falls Risk Assessment 02/28/2025 COVID-19 Vaccine ( season) 2025 02/08/2021 Influenza Vaccine (#1) 2025 8, 09/06/2016, 07/20/2012 Diabetes: Blood Sugar Control Test (HGBA1C) 11/29/2025 05/29/2025, 02/26/2025, 11/28/2024, Additional history exists Diabetes: Annual GFR (Glomerular Filtration Rate) 04/14/2026 04/14/2025, 04/14/2025, 10/04/2024, Additional history exists Hypertension/CHF/CAD Annual BMP Blood Test 04/14/2026 04/14/2025, 04/14/2025, 10/04/2024, Additional history exists DTaP,Tdap,and Td Vaccines (4 - Td or Tdap) 11/28/2034 11/28/2024, 05/23/2012, 05/04/2011 Hepatitis A Vaccines Completed 12/08/2016, 06/02/20 16 Hepatitis B Vaccines Completed 12/08/2016, 07/14/2016, 06/02/2016, Additional history exists Pneumococcal Vaccine: 50+ Years Completed 11/24/2023, 01/27/2017 Hepatitis C Screening Completed [...] 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 V24, [facility] V28) from Last 3 Months or Most Recently Relevant to Health Maintenance Results * (ABNORMAL) Comprehensive metabolic panel (10/04/2024 12:28 PM EST) Sodium 137 133 - 145 mmol/L LAB CHEMISTRY METHOD 10/04/2024 1:26 PM EST [facility] Potassium 4.7 3.5 - 5.5 mmol/L LAB CHEMISTRY METHOD 10/04/2024 1:26 PM EST [facility] Chloride 105 96 - 110 mmol/L LAB CHEMISTRY METHOD 10/04/2024 1:26 PM [facility] CO2 28 21 - 32 mmol/L LAB CHEMISTRY METHOD 10/04/2024 1:26 PM [facility] Anion Gap 4 3 - 11 LAB CHEMISTRY METHOD 10/04/2024 1:26 PM [facility] Glucose 104(H) 70 - 100 mg/dL LAB CHEMISTRY METHOD 10/04/2024 1:26 PM [facility] BUN 25 5 - 25 mg/dL LAB CHEMISTRY METHOD 10/04/2024 1:26 PM [facility] Creatinine 1.04 0.70 - 1.30 mg/dL LAB CHEMISTRY METHOD 10/04/2024 1:26 PM [facility] eGFR 80 >=60 mL/min/1. 73m2 LAB CHEMISTRY METHOD 10/04/2024 1:26 PM [facility] Comment:Calculation based on the Chronic Kidney Disease Epidemiology Collaboration (CKD-EPI) equation refit without adjustment for race. BUN/Creatinine Ratio 24.0 LAB CHEMISTRY METHOD 10/04/2024 1:26 PM [facility] Calcium 10.4 8.5 - 10.5 mg/dL LAB CHEMISTRY METHOD 10/04/2024 1:26 PM [facility] AST (SGOT) 15 10 - 42 unit/L LAB CHEMISTRY METHOD 10/04/2024 1:26 PM [facility] ALT (SGPT) 33 10 - 60 unit/L LAB CHEMISTRY METHOD 10/04/2024 1:26 PM [facility] Alkaline Phosphatase 46 42 - 121 unit/L LAB CHEMISTRY METHOD 10/04/2024 1:26 PM [facility] Total Protein 6.8 6.0 - 8.0 g/dL LAB CHEMISTRY METHOD 10/04/2024 1:26 PM [facility] Albumin 3.9 3.2 - 5.0 g/dL LAB CHEMISTRY METHOD 10/04/2024 1:26 PM [facility] [place] [facility] Total Bilirubin 1.1 0.0 - 1.4 mg/dL LAB CHEMISTRY METHOD 10/04/2024 1:26 PM EST [facility] Blood Venous blood specimen / Unknown Venipuncture / Unknown 10/04/2024 12:28 PM EST 10/04/2024 12:35 PM EST us Hola Rivas MD LAB BLOOD ORDERABLES Final Re sult [facility] [address] [place] [address], from Last 3 Months or Most Recently Relevant to Health Maintenance Insurance [place] - [place]ARE Care Teams Leveler Helper Relationship Specialty Start Date End Date Magalie Mars MD [address] [place] [phone] PCP - General 11/27/23
--- OUTSIDE RECORDS SUMMARY | 2025-10-21 18:45 | XMS_ITS | Encounter Summary ---
Author Organization [facility] Address [address] [place] [address] [address] [place] [address] Care Team Providers Care Oil Rig Roughneck Name Role Phone Magalie Mars MD Primary Care Provider + Encounter Details Date Type Department Care Team (Late st Contact Info) Description 04/21/2023 Abstract [facility] MEDICINE [address] [place] [address] [phone] Magalie Mars MD [address] [place] [address] [phone] Social History Tobacco Use Types Packs/Day Years [...] Care Team (Late st Contact Info) Description 11/11/2025 11:15 AM EST Office Visit [facility] MEDICINE [address] [place] [address] [phone] Magalie Mars MD [address] [place] [phone] 12/04/2025 3:00 PM EST Clinical Support [facility] CHC DIABETES/NTRN [address] [place], [place] [phone] Ruby Garcia, TRISHA [address] [place] [address] 12/19/2025 9:30 AM EST Office Visit [facility] MEDICINE [address] [place] [address] Taiwo Hicks MD [address] [place] [address] 02/06/2026 11:00 AM EDT Office Visit [facility] OPTOMETRY [address] [place], [place] [phone] Skye David, OD [address] [place] [address] documented as of this encounter Procedures Procedure Name Priority Date/Time Associated Diagnosis Comments COLONOSCOPY Routine 11/24/2015 10:27 AM EST documented in this encounter Results * Hm Colonoscopy (11/24/2015 10:27 AM EST) Colonoscopy Normal Normal Narrative Drea Pack - 11/24/2015 10:27 AM EST Recommended 3 year follow (tubular adenomas ) Historical Provider HEALTH MAINTENANCE Edited Result - Final documented in this encounter Visit Diagnoses Not on filedocumented in this encounter Care Teams Oil Rig Roughneck Relationship Specialty Start Date End Date Magalie Mars MD [address] [place] [address] PCP - General Family Medicine 01/22/21 documented as of this encounter
--- OUTSIDE RECORDS SUMMARY | 2025-10-21 18:45 | XMS_ITS | Encounter Summary ---
Author Organization [employer] Address [address] [place] [address] [address] [place] [address] Care Team Providers Care Ribbon Blocker Name Role Phone Magalie Mars MD Primary Care Provider + Encounter Details Date Type Department Care Team (Late Contact Info) Description 03/04/2023 Orders Only [facility] [address] [place], [place] [phone] Magalie Mars MD [address] [place] [address] Type 2 diabetes mellitus with hyperglycemia, without long-term current use of insulin ([facility]) Social History Tobacco Use Types Packs/Day Years [...] Encounters Date Type Department Care Team (Late Contact Info) Description 11/11/2025 11:15 AM EST Office Visit [facility] [address] [place] [address] Magalie Mars MD [address] [place] [address] 12/04/2025 3:00 PM EST Clinical Support [facility] DIABETES/NTRN [address] [place], [place] [phone] Ruby Garcia, TRISHA [address] [place] [address] 12/19/2025 9:30 AM EST Office Visit [facility] [address] [place] [address] Taiwo Hicks MD [address] [place] [address] 02/06/2026 11:00 AM EDT Office Visit [facility] OPTOM[facility] [address] [place] [address] FrankieSkye cid, OD [address] [place] [address] documented as of this encounter Visit Diagnoses Diagnosis Type 2 diabetes mellitus with hyperglycemia, without long-term current use of insulin (HCC) documented in this encounter Care Teams Ribbon Blocker Relationship Specialty Start Date End Date Magalie Mars MD [address] [place] [address] PCP - General Family Medicine 01/22/21 documented as of this encounter
--- OUTSIDE RECORDS SUMMARY | 2025-10-21 18:45 | XMS_ITS | Clinical Summary ---
Author Organization [employer] Address [address] [place] [address] [address] [place] [address] Care Team Providers Care Employment Supervisor Name Role Phone Magalie Mars MD Primary [...] record from that organization. Blood Pressure Monitor kitIndications:Pr imary hypertension Use as directed daily 1 kit 3 Active albuterol (ProAir HFA) 108 (90 Base) MCG/ACT inhalerIndication s:Mild persistent asthma without complication,Mild intermittent asthma without complication Inhale 2 puffs every 6 (six) hours if needed for wheezing. 18 g 2 4 Active fluticasone (Flonase) 50 MCG/ACT nasal sprayIndications: Seasonal allergic rhinitis due to pollen USE 1 SPRAY IN EACH NOSTRIL ONCE DAILY IN THE MORNING 48 g 4 Active zolpidem (Ambien) 10 MG tablet 5 Active mirtazapine (Remeron) 45 MG tablet 5 Active Lancets misc Use to test blood sugar 1x times daily 100 each 3 10/13/2025 11:10 AM EST 5 Active FREESTYLE LITE test strip Use to test blood sugar 1x times daily 100 each 3 10/13/2025 11:10 AM EST 5 02/27/20 26 Active Alcohol Swabs 70 % padsIndications:T ype 2 diabetes mellitus with hyperglycemia, without long-term current use of insulin (HCC) Use to test blood sugar 1x times daily 100 each 3 5 Active atorvastatin (Lipitor) 40 MG tablet Take 1 tablet (40 mg) by mouth at bedtime. 30 tablet 11 5 04/15/20 26 Active Eliquis 5 MG tabletIndications :Chronic deep vein thrombosis (DVT) of calf muscle vein of left lower extremity (HCC) TAKE 1 TABLET BY MOUTH TWICE DAILY 60 tablet 3 5 Active desloratadine (Clarinex) 5 MG tablet Take 1 tablet (5 mg) by mouth Once per day. 30 tablet 2 5 Active tadalafil (Cialis) 5 MG tablet Take 5 mg by mouth Once per day. as directed 5 Active metFORMIN XR (Glucophage-XR) 500 MG 24 hr tablet TAKE 1 TABLET BY MOUTH EVERY EVENING WITH DINNER DO NOT BREAK, CRUSH, DISSOLVE OR CHEW 5 Active guanFACINE (Intuniv) 1 mg 24 hr tablet 5 Active Active Problems Problem Noted Date Diagnosed Date Epistaxis 05/29/2025 Assessment & Plan (05/29/2025 3:22 PM EDT): Recurrent. Advised regarding checking BP 2-3 times per week as needed epistaxis. She will call if BP is persistently elevated with episodes of nasal bleeding. Refer to ENT Epicondylitis elbow, medial, left 02/26/2025 Assessment & Plan (02/26/2025 2:41 PM EDT): Recommended warm soaks with Epsom salt on affected area, use diclofenac gel as needed or Tylenol Recommended the use of elbow straps especially when lifting weights Recommended to decrease the weight in weight lifting to few pounds under the current weight and then build up gradually Follow-up with me in 4 to 6 weeks for hypertension control, may need a referral to OT Tubular adenoma 11/24/2023 Assessment & Plan (11/28/2024 3:35 PM EST): Colonoscopy in 2023, next 1 due in 2027 Assessment & Plan (11/24/2023 3:03 PM EST): [...] of both eyes 04/27/2023 Assessment & Plan (05/29/2025 3:23 PM EDT): DC Zyrtec and use just loratadine Use cromolyn ophthalmic solution as needed Assessment & Plan (02/26/2025 2:47 PM EDT): Refill for Zyrtec sent to pharmacy Assessment & Plan (04/27/2023 1:58 PM EDT): [...] for follow up treatment Foot pain 12/27/2022 Severe obesity (CMS/HCC) 12/27/2022 Assessment & Plan (02/26/2025 2:48 PM EDT): Discussed re weight reduction options including exercise, life style modifications, diet. Recommended to decrease soda and sugary beverage consumption, increase protein intake with meals (at least 1 portion of protein with each meal) to assist with satiety, increase dietary fiber Recommended at least 150 min/week of moderate intensity exercise. He's seeing a dietitian and has been losing weight Assessment & Plan (11/28/2024 3:34 PM EST): [...] use of insulin 11/16/2022 Assessment & Plan (05/29/2025 3:23 PM EDT): Controlled on metformin once daily. A1c is low, on IGT range DC metformin XR Counseled re more frequent low calorie/carb meals. Check fgstk 1x daily Encouraged physical activity as tolerated. FU in 3-4m Assessment & Plan (02/26/2025 2:46 PM EDT): Controlled. A1c is lower than goal. Decrease metformin XR to 500 mg/day (left a VM with patient and left before A1c result was ready) Counseled re more frequent low calorie/carb meals. Check fgstk 1x daily Encouraged physical activity as tolerated. FU in 3-4m Assessment & Plan (11/28/2024 10:08 AM EST): Controlled. A1c is at goal. Will continue Metformin and follow up with [facility]. Counseled re more frequent low calorie/carb meals. Advised to fingerstick. Encouraged physical activity as tolerated. FU in 3-4 months. Declined influenza vaccine. Assessment & Plan (09/06/2024 10:24 AM EDT): Controlled. A1c is at goal. Will continue Metformin and follow up with L[facility]. Counseled re more frequent low calorie/carb meals. [...] is having a large meal like on or monday buffet. Check fingeresticks 1-2 hours [...] meal, order labs and [facility] FU w me in 1w with labs Refer to DM educator and optometry Go to ED if he develops, nausea, abd pain, resp distress, MS changes. Primary hypertension 11/16/2022 Assessment & Plan (05/29/2025 3:21 PM EDT): Fairly controlled, Continue off lisinopril and monitor BP at home 2 times per week, follow-up with me in 4m Counseled re low salt diet/increase moderate physical activity. Check home BP BIW and prn CP/MEHTA/SALMERON Non smoking patient. Assessment & Plan (02/26/2025 2:39 PM EDT): Fairly controlled, he is off lisinopril. Continue off lisinopril and monitor BP at home 3 times per week, follow-up with me in 4 to 6 weeks Counseled re low salt diet/increase moderate physical activity. Check home BP BIW and prn CP/MEHTA/SALMERON Non smoking patient. Assessment & Plan (08/16/2024 12:17 PM EDT): Uncontrolled Increase lisinopril to 20mg/d and check labs prior to next appt w me FU in 6w Assessment & Plan (11/24/2023 2:58 PM EST): Stage 1, continue Lisinopril 10mg Stressed the importance of life style modifications. Fu in 3m Assessment & Plan (09/04/2023 5:25 PM EDT): [...] >35. 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 Continue to fu closely at [facility], fu with MH team, AA meetings Check labs FU w me in 1m Mild intermittent asthma 12/29/2017 Assessment & Plan (02/26/2025 2:38 PM EDT): Doing well on albuterol as needed, continue same treatment DC fluticasone inhaler and restart as needed if he starts having more than 1 asthma exacerbation per week He is a non-smoker We discussed about RSV immunization and updated COVID immunization, I answered questions regarding this vaccination and he will follow-up at nearest retail pharmacy. Assessment & Plan (11/16/2022 2:43 PM EST): Order PFts Continue albuterol prn Counseled re Influenza and covid vax He's a non smoker. He had pneumovax x1 only. FU at next appt for PCV 20 Mixed hypercholesterolemia and hypertriglyceride sunshine 12/29/2017 Assessment & Plan (05/29/2025 3:22 PM EDT): Started on atorvastatin, tolerates well. He needs to check LFTs and lipids in approximately 6 to 8 weeks Recommended moderate amount of exercise and increase consumption of fruit, vegetables, fish and high fiber foods. Should decrease consumption of highly saturated fats or trans fats. Assessment & Plan (09/06/2024 10:25 AM EDT): [...] fats. Allergic rhinitis 12/29/2017 Assessment & Plan (02/26/2025 2:47 PM EDT): Flonase refill sent to pharmacy Assessment & Plan (04/27/2023 1:59 PM EDT): [...] life style modifications, diet Will refer to injection specialist. Recommended to decrease soda and sugary beverage consumption, increase protein intake with meals (at least 1 portion of protein with each meal) to assist with satiety, increase dietary fiber Recommended at least 150 min/week of moderate intensity exercise. COVID-19 12/27/2022 11/24/2023 Elevated blood-pressure read ing without diagnosis of hypertension 12/27/2022 08/16/2024 Mild persistent asthma without complication 12/27/2022 02/26/2025 Assessment & Plan (11/24/2023 2:56 PM EST): Add Fluticasone 100mg bid, continue albuterol prn only Declined Influenza and Coivd booster. Agreed to PCV20 today. PFTs done on 12/2022. Assessment & Plan (12/30/2022 11:58 AM EST): PFTs wnl. Continue albuterol daily for now and encouraged to continue exercise and weight reduction. Obesity (BMI 35.0-39.9 without comorbidity) 12/27/2022 09/06/2024 Encounters * This document contains information received from the source organization and may not represent a complete record from that organization. Date Type Department Care Team Description 10/10/2025 2:00 PM EST Clinical Support [facility] DI[facility]ET[facility]/NUTRITIO N [address] [place] [address] Type 2 diabetes mellitus with hyperglycemia, without long-term current use of insulin (HCC) (Primary Dx); Mixed hypercholesterolemia and hypertriglyceridemia 10/10/2025 Travel 10/06/2025 10:15 AM EST Office Visit [facility] [address] [place] [address] Sola Workman MD Alcohol use disorder, severe, in early remission (CMS/HCC) (HCC) (Primary Dx); Arthralgia, unspecified joint 10/06/2025 Patient Outreach [facility] [address] [place] [address] Kem [facility] 09/29/2025 9:30 AM EST Office Visit [address] [address] Sola Workman MD Alcohol use disorder, severe, in early remission (CMS/HCC) (HCC) (Primary Dx); Arthralgia, unspecified joint 09/29/2025 Patient Outreach [facility] [address] [place] [address] Kem [facility] 09/29/2025 Travel 09/26/2025 10:30 AM EST Office Visit [address] [place] [address] Taiwo Hicks MD Alcohol use disorder, severe, in sustained remission (CMS/HCC) (HCC) (Primary Dx) 09/26/2025 Outside Procedure [facility] OPTOMETRY [address] [place] [address] Santos Davidn, OD Presbyopia of both eyes (Primary Dx) 09/26/2025 Patient Outreach [address] [address] [place] [facility] 09/26/2025 Travel 09/25/2025 9:15 AM EST Office Visit [facility] OPTOMETRY [address] [place] [address] Skye David, OD Regular astigmatism of left eye (Primary Dx) 09/23/2025 Patient Outreach [address] [address] [place] [facility] 09/19/2025 Patient Outreach [address] [address] [facility] 09/18/2025 Patient Outreach [address] [address] [facility] 09/16/2025 Patient Outreach [address] [address] [facility] 09/11/2025 Patient Outreach [address] [address] [facility] 09/11/[address] [address] Magalie Mars MD November09/09/2025 Patient Outreach [address] [address] [place] [facility] 09/02/2025 Patient Outreach [facility] [address] [place] [address] [facility] 08/26/2025 10:30 AM EDT Clinical Support [facility] DI[facility]ETES/NUTRITIO N [address] [place] [address] Ruby Garcia, RD Type 2 diabetes mellitus with hyperglycemia, without long-term current use of insulin (HCC) (Primary Dx); Mixed hypercholesterolemia and hypertriglyceridemia 08/26/2025 Travel 08/20/2025 10:00 AM EDT Office Visit [facility] [address] [place] [address] Sterling Murphy MD Alcohol use disorder (Primary Dx) 08/20/2025 Travel 08/19/2025 Patient Outreach [facility] [address] [place] [address] [place] [facility] 08/13/2025 10:15 AM EDT Office Visit [address] [address] Sterling Murphy MD Alcohol use disorder (Primary Dx) 08/13/2025 Travel 08/12/2025 Patient Outreach [address] [address] [facility] 08/08/2025 11:00 AM EDT Office Visit [facility] [address] [place] [address] Taiwo Hicks MD Alcohol use disorder, severe, in sustained remission (CMS/HCC) (HCC) (Primary Dx) 08/08/2025 10:00 AM EDT Office Visit [facility] OPTOMETRY [address] [place] [address] Frankie, Skye, OD Diabetes type 2, no ocular involvement (HCC) (Primary Dx); Glaucoma suspect, left eye; Early cataracts, bilateral; Presbyopia of both eyes 08/08/2025 Travel 08/06/2025 10:00 AM EDT Office Visit [facility] [address] [place] [address] Sterling Murphy MD Alcohol use disorder (Primary Dx) 08/06/2025 Travel 08/05/2025 Patient Outreach [facility] [address] [place] [address] [place] [facility] 07/30/2025 10:00 AM EDT Office Visit [facility] [address] [place] [address] Sterling Murphy MD Alcohol use disorder (Primary Dx) 07/30/2025 Travel 07/29/2025 10:30 AM EDT Clinical Support [facility] DIABETES/NUTRITIO N [address] [place] [address] Type 2 diabetes mellitus with hyperglycemia, without long-term current use of insulin ([facility]) (Primary Dx); Mixed hypercholesterolemia and hypertriglyceridemia 07/29/2025 Patient Outreach [facility] [address] [place] [address] [facility] 07/29/2025 Patient Outreach [address] [address] [place] 07/29/2025 Travel 07/28/2025 Patient Outreach [address] [address] Em[facility] Gu[facility] 07/23/2025 10:00 AM EDT Office Visit [address] [address] Sterling Murphy MD Alcohol use disorder (Primary Dx) 07/23/2025 Travel 07/22/2025 Patient Outreach [address] [address] [place] [facility] from Last 3 Months Immunizations Immunization Administration Dates Next Due Hep A, Adult [...] Packs/Day Years Used Date Smoking Tobacco: Never Passive Smoke Exposure: Current Smokeless Tobacco: Never Tobacco Cessation:Counseling Given: Not [...] Sign Reading Time Taken Comments Blood Pressure 128/86 05/29/2025 10:32 AM EDT Pulse 78 05/29/2025 10:32 AM EDT Temperature 36.6 C (97.9 F) 05/29/2025 10:32 AM EDT Respiratory Rate 17 05/29/2025 10:32 AM EDT Oxygen Saturation 99% 02/26/2025 9:58 AM EDT Inhaled Oxygen Concentration - - Weight 84.8 kg (187 lb) 10/13/2025 1:34 PM EST Height 170.2 cm (5' 7 ) 10/13/2025 1:34 PM EST Body Mass Index 29.29 10/13/2025 1:34 PM EST Plan of Treatment Upcoming Encounters Date Type Department Care Team (Late st Contact Info) Description 11/11/2025 11:15 AM EST Office Visit [facility] [address] [place] [address] Magalie Mars MD [address] [place] [address] 12/04/2025 3:00 PM EST Clinical Support [facility] DIABETES/NTRN [address] [place] [address] [place] [address] 12/19/2025 9:30 AM EST Office Visit [facility] [address] [place] [address] Taiwo Hicks MD [address] [place] [address] 02/06/2026 11:00 AM EDT Office Visit [facility] OPTOMETRY [address] [place] [address] Skye David, OD [address] [place] [address] Health Maintenance Due Date Last Done Comments CT Colonography 1960 FIT DNA/Cologuard 1960 FIT 1960 FOBT 1960 Sigmoidoscopy 1960 RSV Patients and Patients Aged 60 years or older (1 - Risk 50-74 years 1-dose series) 02/28/2010 Zoster Vaccines (1 of 2) 02/28/2010 COVID-19 Vaccine (2 - 2024- season) 2025 02/08/2021 Influenza Vaccine (#1) 2025 8, 09/06/2016, 07/20/2012 Diabetes: Urine Protein Screening 08/05/2025 08/05/2024, 10/15/2021, 10/15/2021 Depression Screening 11/28/2025 11/28/2024, 11/28/19 25 SDOH Screening 11/28/2025 11/28/2024 Diabetes: Hemoglobin A1C 11/29/2025 025, 02/26/2025, 11/28/2024, Additional history exists Lipid Panel 04/14/2026 04/14/2025, 07/2025, 08/05/2024, Additional history exists Alcohol/Substance Use Screening 05/29/2026 05/29/2025 Diabetes: Foot Exam 05/29/2026 05/29/2025, 05/29/2025, 05/29/2025, Additional history exists Tobacco Screening 09/29/2026 09/29/2025 Eye Exam 08/08/2027 08/08/2025, 100 01/2025, 08/08/2025, Additional history exists Colonoscopy 10/17/2027 10/17/2024, 11/24/2015 Colorectal Cancer Screening 10/17/2027 DTaP/Tdap/Td Vaccines (4 - Td or Tdap) 11/28/2034 11/28/2024, 05/23/2012, 05/04/2011 Hepatitis A Vaccines Aged Out 12/08/2016, 06/02/20 16 No longer eligible based on patient's age to complete this topic Hepatitis B Vaccines Completed 12/08/2016, 07/14/2016, 06/02/2016, Additional history exists Pneumococcal Vaccine: 50+ Years Completed 11/24/2023, 01/27/2017 Hepatitis C Screening Completed 08/05/2024 , 08/05/2024, [...] Procedure Name Priority Date/Time Associated Diagnosis Comments OCT, OPTIC NERVE - OU - BOTH EYES Routine 08/08/2025 1:08 PM EDT Glaucoma suspect, left eye POCT GLYCATED HEMOGLOBIN, TOTAL Routine 05/29/2025 10:37 AM EDT Type 2 diabetes mellitus with hyperglycemia, without long-term current use of insulin (CMS/HCC) LIPID PANEL WITH REFLEX TO DIRECT LDL Routine 04/14/2025 12:36 PM EDT Type 2 diabetes mellitus with hyperglycemia, without long-term current use of insulin (CMS/HCC) HM COLONOSCOPY Routine 10/17/2024 HEPATITIS PANEL, GENERAL Routine 08/05/2024 10:59 AM EDT Elevated liver enzymes ALBUMIN, RANDOM URINE W/CREATININE Routine 08/05/2024 10:59 AM EDT Type 2 diabetes mellitus with hyperglycemia, without long-term current use of insulin (CMS/HCC) from Last 3 Months or Most Recently Relevant to Health Maintenance Results * OCT, Optic Nerve - OU - Both Eyes (08/08/2025 1:08 PM EDT) Narrative Frankie Skye, OD - 08/08/2025 1:08 PM EDT Images from the original result were not included. OCT OPTIC NERVE INTERPRETATION Optical Coherence Tomography Interpretation Report Test Details: Measurements: OD OS C/D Horizontal 0.69 0.81 C/D Vertical 0.65 0.75 Disc area 2.12mm 2 2.08mm 2 RNFL Average 93 microns 94 microns Test findings: OD: Normal RNFL thickness in all quadrants OS: Normal RNFL thickness in all quadrants Impression and Plan: Right: 3 micron decrease in average RNFL thickness compared to 2023 scan Left: Stable to 2023 scan Grossly stable findings today. Still low suspicion for glaucoma at this time. Will have patient return in 6 months for an updated visual field test. Skye David OD OPHTH TOMOGRAPHY Final Result * (ABNORMAL) POCT HGB A1C (05/29/2025 10:37 AM EDT) Hemoglobin A1C 5.8(A) 4.0 - 5.7 % QC Media Lot # [id number] Lot# Expiration Date Swab 05/29/2025 10:3 7 AM EDT Magalie Mars MD POINT OF CARE TEST ENTER /EDIT ORDERABLES Final Result * (ABNORMAL) Lipid Panel with Reflex to Direct LDL (04/14/2025 12:36 PM EDT) Triglycerides 154(H) <150 mg/dL [facility] Comment:Desirable Triglyceri de: less than 150 mg/dLBorderline High Triglyceride 150-199 mg/dLHigh Triglyceride: 200-499 mg/dLVery High Triglyceride: greater than or equal to 5OO mg/dL Cholesterol 222(H) <200 mg/dL [facility] Comment:Desirable Cholestero l: less than 200 mg/dLBorderline High Cholesterol: 200-239 mg/dLHigh Cholesterol: greater than 239 mg/dL LDL Cholesterol Calculated 151(H) <100 mg/dL [facility] Comment:Desirable LDL: less than 100 mg/dLNear Optimal/Above Optimal LDL: 110- 129 mg/dLBorderline High LDL: 130-159 mg/dLHigh LDL: 160-189 mg/dLVery High LDL: greater than or equal to 190 mg/dL HDL Cholesterol 41 >40 mg/dL [facility] Comment:Desirable HDL: great er than 40 mg/dL Note: This HDL assay may give artificially low results in patients with liver disease. Blood 04/14/2025 12:3 6 PM EDT 04/14/2025 1:12 PM EDT Magalie Mars MD LAB BLOOD ORDERABLES Fin al Result Performing Organization Address [facility] Co de Phone Number [facility] [address] [place] [address] [phone] * (ABNORMAL) Hm Colonoscopy (10/17/2024) Pathologist [facility] Colonoscopy Abnormal(A ) Normal [facility] Comment:2 TA Magalie Mars MD HEALTH MAINTENANCE Final Result Performing Organization Address [facility] de Phone Number [facility] [address] [place] [address] [phone] * Hepatitis Panel, General (08/05/2024 10:59 AM EDT) Hepatitis A IgM Nonreactive Nonreactive [facility] Comment:IgM antibodies to MEHTA V not detected; does not exclude earlyacute or recovered HAV infection. ~Hepatitis B Surface Antibody REACTIVE Nonreactive [facility] Comment:REACTIVE: > 11.99 mI U/mL Hepatitis B Core Antibody Nonreactive Nonreactive [facility] Hepatitis C Antibody Nonreactive Nonreactive [facility] Comment:Antibodies to HCV no t detected; does not exclude early acuteHCV infection. Hepatitis B Surface Ag Negative Negative [facility] Blood 08/05/2024 10:5 9 AM EDT 08/05/2024 1:07 PM EDT us Magalie Mars MD LAB BLOOD ORDERABLES Fin al Result Performing Organization Address [facility] Co de Phone Number [facility] [address] [place] [address] [phone] * Albumin, Random Urine W/Creatinine (08/05/2024 10:59 AM EDT) Creatinine, Urine 125.62 mg/dL [facility] Microalbumin Urine 6.0 mg/L H [facility] Microalbum Creatinine Ratio Ur 4.7 <30 ug/mg cr [facility] Comment:Albumin/Creatinine R atio Reference Ranges: Normal: < 30 ug/mg creatinine Microalbuminuria: 30 - 300 ug/mg creatinineClinical Albuminuria: > 300 ug/mg creatinine Urine (Urine, Random) 08/05/2024 10:59 AM EDT 08/05/2024 1:05 PM EDT us Magalie Mars MD LAB URINE ORDERABLES Fin al Result [facility] [address] [place] [address] [phone] from Last 3 Months or Most Recently Relevant to Health Maintenance Insurance [place] [address] STANDARD MEDICARE Care Teams Employment Supervisor Relationship Specialty Start Date End Date Magalie Mars MD [address] [place] [phone] PCP - General Family Medicine 01/22/21
--- OUTSIDE RECORDS SUMMARY | 2025-10-21 18:45 | XMS_ITS | Patient Health Record ---
Author Organization [facility] Address [address] [place] [address] Care Team Providers Care Senior Environmental Engineer Name Role Phone [facility] Primary Care Provider [phone] Faith Reyes Unavailable [phone] Reason For Referral No Information Plan Of Treatment No Information Insurance Providers Payer Name Payer Address Payer Phone Subscriber Number Group Number Insured Name Patient Relationship to Insured Coverage Start Date Coverage End Date [place] Medicaid Standard [address] [place] [address] [id number] Fitz Duran Self - patient is the insured
== END 2025-10-21 15:04 | disposition home or self-care (01) ==
LOC: HO.HUSH 14:27
PROVIDERS: PCP Internal Medicine; Visit Provider Nurse Practitioner Family
DX: E11.69 Type 2 diabetes mellitus with other specified complication (principal); N52.1 Erectile dysfunction due to diseases classified elsewhere; R68.82 Decreased libido; Z13.9 Encounter for screening, unspecified
CPT/HCPCS: 99213; G2211

== ENCOUNTER → 2025-10-21 14:27 | Outpatient (BNVA) | payer MEDICARE, MEDICAID, SELFPAY | PROVIDERS: PCP Internal Medicine; Visit Provider Nurse Practitioner Family | DX: E11.69 Type 2 diabetes mellitus with other specified complication (principal); N52.1 Erectile dysfunction due to diseases classified elsewhere; R68.82 Decreased libido; Z13.9 Encounter for screening, unspecified | CPT/HCPCS: 81003; 99212 ==